=== PATIENT | male | born 1930 | race Caucasian/White ===

== ENCOUNTER → 2016-08-27 | Outpatient (CLI) | payer MEDICARE, OTHER ==
[2016-08-27 08:56] LABS: HEMATOCRIT 45.5 % (37.9-51.0); HEMOGLOBIN 15.1 g/dL (13.5-17.0); HGB HCT DIFFERENCE -0.2; MEAN CORPUSCULAR HEMOGLOBIN 29.6 pg (27.0-33.4); MEAN CORPUSCULAR HGB CONC 33.2 g/dL (32.0-36.0); MEAN CORPUSCULAR VOLUME 89 fl (80-97); RED CELL DISTRIBUTION WIDTH 13.8 % (11.5-14.0); WHITE BLOOD COUNT 7.5 10^3/uL (4.0-10.5)
[2016-08-27 09:14] LABS: ANION GAP 14 (5-19); BLOOD UREA NITROGEN 16 mg/dL (7-20); CALCIUM 9.4 mg/dL (8.4-10.2); CARBON DIOXIDE 26 mmol/L (22-30); CHLORIDE 102 mmol/L (98-107); CREATININE RESULT 1.94 mg/dL (0.52-1.25); GLUCOSE 134 mg/dL (75-110); POTASSIUM 4.6 mmol/L (3.6-5.0); SODIUM 141.5 mmol/L (137-145)
== END ==
LOC: OD 08:31
PROVIDERS: ATTEND Internal Medicine Nephrology
DX: I12.9 Hypertensive chronic kidney disease with stage 1 through stage 4 chronic kidney disease, or unspecified chronic kidney disease (principal); N18.3 Chronic kidney disease, stage 3 (moderate)
CPT/HCPCS: 36415; 80048; 85027

== ENCOUNTER → 2016-12-17 | Outpatient (CLI) | payer MEDICARE, OTHER | LOC: OD 08:19 | PROVIDERS: ATTEND Family Medicine | DX: E11.9 Type 2 diabetes mellitus without complications (principal) | CPT/HCPCS: 36415; 83036 ==

== ENCOUNTER → 2017-02-15 | Outpatient (CLI) | payer MEDICARE, OTHER ==
[2017-02-15 09:23] LABS: HEMATOCRIT 45.7 % (37.9-51.0); HEMOGLOBIN 15.7 g/dL (13.5-17.0); HGB HCT DIFFERENCE 1.4; MEAN CORPUSCULAR HEMOGLOBIN 30.6 pg (27.0-33.4); MEAN CORPUSCULAR HGB CONC 34.4 g/dL (32.0-36.0); MEAN CORPUSCULAR VOLUME 89 fl (80-97); RED BLOOD COUNT 5.14 10^6/uL (4.35-5.55); RED CELL DISTRIBUTION WIDTH 13.7 % (11.5-14.0); WHITE BLOOD COUNT 7.6 10^3/uL (4.0-10.5)
[2017-02-15 09:41] LABS: ANION GAP 11 (5-19); BLOOD UREA NITROGEN 19 mg/dL (7-20); CALCIUM 9.1 mg/dL (8.4-10.2); CARBON DIOXIDE 25 mmol/L (22-30); CHLORIDE 105 mmol/L (98-107); CREATININE RESULT 2.14 mg/dL (0.52-1.25); GLUCOSE 108 mg/dL (75-110); POTASSIUM 4.4 mmol/L (3.6-5.0); SODIUM 140.9 mmol/L (137-145)
== END ==
LOC: OD 08:31
PROVIDERS: ATTEND Internal Medicine Nephrology
DX: N18.3 Chronic kidney disease, stage 3 (moderate) (principal); R19.7 Diarrhea, unspecified; E87.2 Acidosis
CPT/HCPCS: 36415; 80048; 85027

== ENCOUNTER → 2017-04-20 | Outpatient (CLI) | payer MEDICARE, OTHER ==
[2017-04-20 17:40] LABS: ANION GAP 12 (5-19); BLOOD UREA NITROGEN 24 mg/dL (7-20); CALCIUM 9.6 mg/dL (8.4-10.2); CARBON DIOXIDE 27 mmol/L (22-30); CHLORIDE 102 mmol/L (98-107); CREATININE RESULT 2.29 mg/dL (0.52-1.25); GLUCOSE 100 mg/dL (75-110); POTASSIUM 4.5 mmol/L (3.6-5.0); SODIUM 140.6 mmol/L (137-145)
== END ==
LOC: OD 16:06
PROVIDERS: ATTEND Internal Medicine Nephrology
DX: I12.9 Hypertensive chronic kidney disease with stage 1 through stage 4 chronic kidney disease, or unspecified chronic kidney disease (principal); N18.3 Chronic kidney disease, stage 3 (moderate)
CPT/HCPCS: 36415; 80048

== ENCOUNTER → 2017-06-18 | Outpatient (CLI) | payer MEDICARE, OTHER ==
[2017-06-18 10:20] LABS: ANION GAP 12 (5-19); BLOOD UREA NITROGEN 21 mg/dL (7-20); CALCIUM 9.4 mg/dL (8.4-10.2); CARBON DIOXIDE 29 mmol/L (22-30); CHLORIDE 102 mmol/L (98-107); CHOLESTEROL 134.32 mg/dL (0-200); CREATININE RESULT 2.19 mg/dL (0.52-1.25); Direct HDL 54 mg/dL (>40); GLUCOSE 96 mg/dL (75-110); POTASSIUM 4.3 mmol/L (3.6-5.0); SODIUM 143.1 mmol/L (137-145); TRIGLYCERIDES 145 mg/dL (<150)
[2017-06-18 10:31] LABS: DIRECT LDL 55 mg/dL (<100)
== END ==
LOC: OD 08:52
PROVIDERS: ATTEND Family Medicine
DX: E11.9 Type 2 diabetes mellitus without complications (principal); E78.2 Mixed hyperlipidemia; I10 Essential (primary) hypertension; Z79.899 Other long term (current) drug therapy
CPT/HCPCS: 36415; 80048; 80061; 83036; 84443

== ENCOUNTER → 2017-07-27 | Outpatient (CLI) | payer MEDICARE, OTHER ==
[2017-07-27 10:19] LABS: APPEARANCE,URINE SLIGHTLY-CLOUDY; BILIRUBIN,URINE NEGATIVE (NEGATIVE); COLOR,URINE YELLOW; GLUCOSE, URINE NEGATIVE (NEGATIVE); KETONES,URINE NEGATIVE (NEGATIVE); LEUKOCYTE ESTERASE,URINE NEGATIVE (NEGATIVE); NITRITE,URINE NEGATIVE (NEGATIVE); PROTEIN,URINE 30 mg/dL (NEGATIVE); URINE SPECIFIC GRAVITY 1.014; UROBILINOGEN,URINE NEGATIVE mg/dL (<2.0)
[2017-07-27 10:24] LABS: HEMATOCRIT 44.6 % (37.9-51.0); HEMOGLOBIN 15.1 g/dL (13.5-17.0); MEAN CORPUSCULAR HGB CONC 33.9 g/dL (32.0-36.0); MEAN CORPUSCULAR VOLUME 88 fl (80-97); PLATELET COUNT 136 10^3/uL (150-450); RED BLOOD COUNT 5.05 10^6/uL (4.35-5.55); WHITE BLOOD COUNT 7.5 10^3/uL (4.0-10.5)
[2017-07-27 11:00] LABS: ANION GAP 12 (5-19); BLOOD UREA NITROGEN 18 mg/dL (7-20); CALCIUM 9.4 mg/dL (8.4-10.2); CARBON DIOXIDE 30 mmol/L (22-30); CHLORIDE 101 mmol/L (98-107); GLUCOSE 92 mg/dL (75-110); POTASSIUM 4.1 mmol/L (3.6-5.0); SODIUM 142.6 mmol/L (137-145)
== END ==
LOC: OD 09:35
PROVIDERS: ATTEND Physician Assistant Medical
DX: N18.3 Chronic kidney disease, stage 3 (moderate) (principal); E87.2 Acidosis; I95.9 Hypotension, unspecified
CPT/HCPCS: 36415; 80048; 81001; 83970; 84100; 85027

== ENCOUNTER → 2017-12-09 | Outpatient (CLI) | payer MEDICARE, OTHER | LOC: OD 08:59 | PROVIDERS: ATTEND Family Medicine | DX: E11.9 Type 2 diabetes mellitus without complications (principal) | CPT/HCPCS: 36415; 83036 ==

== ENCOUNTER → 2017-12-15 | Outpatient (CLI) | payer MEDICARE, OTHER ==
[2017-12-15 10:25] LABS: APPEARANCE,URINE SLIGHTLY-CLOUDY; BILIRUBIN,URINE NEGATIVE (NEGATIVE); COLOR,URINE YELLOW; GLUCOSE, URINE NEGATIVE (NEGATIVE); KETONES,URINE NEGATIVE (NEGATIVE); LEUKOCYTE ESTERASE,URINE NEGATIVE (NEGATIVE); NITRITE,URINE NEGATIVE (NEGATIVE); PROTEIN,URINE 30 mg/dL (NEGATIVE); UROBILINOGEN,URINE NEGATIVE mg/dL (<2.0)
[2017-12-15 11:01] LABS: ANION GAP 16 (5-19); BLOOD UREA NITROGEN 18 mg/dL (7-20); CALCIUM 9.5 mg/dL (8.4-10.2); CARBON DIOXIDE 26 mmol/L (22-30); CHLORIDE 102 mmol/L (98-107); GLUCOSE 96 mg/dL (75-110); POTASSIUM 4.3 mmol/L (3.6-5.0); SODIUM 143.6 mmol/L (137-145)
== END ==
LOC: OD 09:31
PROVIDERS: ATTEND Physician Assistant Medical
DX: I12.9 Hypertensive chronic kidney disease with stage 1 through stage 4 chronic kidney disease, or unspecified chronic kidney disease (principal); N18.3 Chronic kidney disease, stage 3 (moderate)
CPT/HCPCS: 36415; 80048; 81001

== ENCOUNTER → 2018-05-25 | Outpatient (CLI) | payer MEDICARE, OTHER ==
[2018-05-25 10:39] LABS: ANION GAP 14 (5-19); BLOOD UREA NITROGEN 16 mg/dL (7-20); CALCIUM 9.7 mg/dL (8.4-10.2); CARBON DIOXIDE 28 mmol/L (22-30); CHLORIDE 103 mmol/L (98-107); CHOLESTEROL 161.96 mg/dL (0-200); GLUCOSE 104 mg/dL (75-110); POTASSIUM 3.9 mmol/L (3.6-5.0); SODIUM 145.2 mmol/L (137-145); TRIGLYCERIDES 133 mg/dL (<150)
[2018-05-25 10:50] LABS: DIRECT LDL 92 mg/dL (<100)
== END ==
LOC: OD 09:21
PROVIDERS: ATTEND Family Medicine
DX: E11.9 Type 2 diabetes mellitus without complications (principal); E78.2 Mixed hyperlipidemia; N40.0 Benign prostatic hyperplasia without lower urinary tract symptoms; Z79.899 Other long term (current) drug therapy
CPT/HCPCS: 36415; 80048; 80061; 83036; 84153; 84443

== ENCOUNTER → 2018-06-13 | Outpatient (CLI) | payer MEDICARE, OTHER ==
[2018-06-13 09:25] LABS: HEMATOCRIT 45.7 % (37.9-51.0); HEMOGLOBIN 15.6 g/dL (13.5-17.0); MEAN CORPUSCULAR HEMOGLOBIN 30.2 pg (27.0-33.4); MEAN CORPUSCULAR VOLUME 89 fl (80-97); PLATELET COUNT 146 10^3/uL (150-450); RED BLOOD COUNT 5.16 10^6/uL (4.35-5.55); RED CELL DISTRIBUTION WIDTH 13.7 % (11.5-14.0); WHITE BLOOD COUNT 7.9 10^3/uL (4.0-10.5)
[2018-06-13 09:33] LABS: APPEARANCE,URINE SLIGHTLY-CLOUDY; BILIRUBIN,URINE NEGATIVE (NEGATIVE); COLOR,URINE YELLOW; GLUCOSE, URINE NEGATIVE (NEGATIVE); KETONES,URINE NEGATIVE (NEGATIVE); LEUKOCYTE ESTERASE,URINE NEGATIVE (NEGATIVE); NITRITE,URINE NEGATIVE (NEGATIVE); PROTEIN,URINE 30 mg/dL (NEGATIVE); URINE SPECIFIC GRAVITY 1.016; UROBILINOGEN,URINE NEGATIVE mg/dL (<2.0)
[2018-06-13 09:43] LABS: BLOOD UREA NITROGEN 19 mg/dL (7-20); CALCIUM 9.8 mg/dL (8.4-10.2); GLUCOSE 102 mg/dL (75-110)
[2018-06-13 09:44] LABS: ANION GAP 12 (5-19); CARBON DIOXIDE 31 mmol/L (22-30); CHLORIDE 103 mmol/L (98-107); PHOSPHORUS 3.3 mg/dL (2.5-4.5); POTASSIUM 4.8 mmol/L (3.6-5.0); SODIUM 145.7 mmol/L (137-145)
== END ==
LOC: OD 08:28
PROVIDERS: ATTEND Physician Assistant Medical
DX: N18.3 Chronic kidney disease, stage 3 (moderate) (principal); E87.2 Acidosis
CPT/HCPCS: 36415; 80048; 81001; 83970; 84100; 85027

== ENCOUNTER → 2018-11-16 | Outpatient (CLI) | payer MEDICARE, OTHER | LOC: OD 09:59 | PROVIDERS: ATTEND Family Medicine | DX: E11.9 Type 2 diabetes mellitus without complications (principal); Z79.899 Other long term (current) drug therapy | CPT/HCPCS: 36415; 83036 ==

== ENCOUNTER → 2019-01-10 | Outpatient (CLI) | payer MEDICARE, OTHER ==
[2019-01-10 09:39] LABS: HEMATOCRIT 45.2 % (37.9-51.0); HEMOGLOBIN 15.2 g/dL (13.5-17.0); MEAN CORPUSCULAR HEMOGLOBIN 29.3 pg (27.0-33.4); MEAN CORPUSCULAR HGB CONC 33.5 g/dL (32.0-36.0); MEAN CORPUSCULAR VOLUME 87 fl (80-97); PLATELET COUNT 202 10^3/uL (150-450); RED BLOOD COUNT 5.17 10^6/uL (4.35-5.55); RED CELL DISTRIBUTION WIDTH 13.8 % (11.5-14.0); WHITE BLOOD COUNT 10.6 10^3/uL (4.0-10.5)
[2019-01-10 09:42] LABS: APPEARANCE,URINE CLOUDY; BILIRUBIN,URINE NEGATIVE (NEGATIVE); COLOR,URINE YELLOW; GLUCOSE, URINE NEGATIVE (NEGATIVE); KETONES,URINE NEGATIVE (NEGATIVE); LEUKOCYTE ESTERASE,URINE LARGE (NEGATIVE); NITRITE,URINE NEGATIVE (NEGATIVE); PROTEIN,URINE 30 mg/dL (NEGATIVE); URINE SPECIFIC GRAVITY 1.017; UROBILINOGEN,URINE NEGATIVE mg/dL (<2.0)
[2019-01-10 10:09] LABS: ANION GAP 7 (5-19); BLOOD UREA NITROGEN 14 mg/dL (7-20); CALCIUM 9.3 mg/dL (8.4-10.2); CARBON DIOXIDE 28 mmol/L (22-30); CHLORIDE 105 mmol/L (98-107); GLUCOSE 93 mg/dL (75-110); POTASSIUM 4.4 mmol/L (3.6-5.0); SODIUM 140.3 mmol/L (137-145)
== END ==
LOC: OD 09:04
PROVIDERS: ATTEND Physician Assistant Medical
DX: I12.9 Hypertensive chronic kidney disease with stage 1 through stage 4 chronic kidney disease, or unspecified chronic kidney disease (principal); N18.3 Chronic kidney disease, stage 3 (moderate)
CPT/HCPCS: 36415; 80048; 81001; 83970; 85027

== ENCOUNTER → 2019-05-16 | Outpatient (CLI) | payer MEDICARE, OTHER ==
[2019-05-16 11:14] LABS: ANION GAP 9 (5-19); BLOOD UREA NITROGEN 18 mg/dL (7-20); CALCIUM 9.4 mg/dL (8.4-10.2); CARBON DIOXIDE 30 mmol/L (22-30); CHLORIDE 102 mmol/L (98-107); CHOLESTEROL 166.74 mg/dL (0-200); GLUCOSE 105 mg/dL (75-110); POTASSIUM 4.6 mmol/L (3.6-5.0); TRIGLYCERIDES 146 mg/dL (<150)
[2019-05-16 11:25] LABS: DIRECT LDL 91 mg/dL (<100)
== END ==
LOC: OD 09:37
PROVIDERS: ATTEND Family Medicine
DX: E11.9 Type 2 diabetes mellitus without complications (principal); E78.2 Mixed hyperlipidemia; I10 Essential (primary) hypertension; N40.0 Benign prostatic hyperplasia without lower urinary tract symptoms; Z79.899 Other long term (current) drug therapy
CPT/HCPCS: 36415; 80048; 80061; 83036; 84153; 84443

== ENCOUNTER → 2019-06-27 | Outpatient (CLI) | payer MEDICARE, OTHER ==
[2019-06-27 10:10] LABS: HEMATOCRIT 45.7 % (37.9-51.0); HEMOGLOBIN 15.5 g/dL (13.5-17.0); MEAN CORPUSCULAR HEMOGLOBIN 29.8 pg (27.0-33.4); MEAN CORPUSCULAR HGB CONC 33.9 g/dL (32.0-36.0); MEAN CORPUSCULAR VOLUME 88 fl (80-97); PLATELET COUNT 172 10^3/uL (150-450); WHITE BLOOD COUNT 8.8 10^3/uL (4.0-10.5)
[2019-06-27 10:27] LABS: ANION GAP 9 (5-19); BLOOD UREA NITROGEN 17 mg/dL (7-20); CALCIUM 9.3 mg/dL (8.4-10.2); CARBON DIOXIDE 29 mmol/L (22-30); CHLORIDE 104 mmol/L (98-107); GLUCOSE 101 mg/dL (75-110); PHOSPHORUS 3.8 mg/dL (2.5-4.5); POTASSIUM 4.3 mmol/L (3.6-5.0)
[2019-06-27 10:59] LABS: APPEARANCE,URINE SLIGHTLY-CLOUDY; BILIRUBIN,URINE NEGATIVE (NEGATIVE); COLOR,URINE YELLOW; GLUCOSE, URINE NEGATIVE (NEGATIVE); KETONES,URINE NEGATIVE (NEGATIVE); LEUKOCYTE ESTERASE,URINE LARGE (NEGATIVE); NITRITE,URINE POSITIVE (NEGATIVE); PROTEIN,URINE 30 mg/dL (NEGATIVE); URINE SPECIFIC GRAVITY 1.016; UROBILINOGEN,URINE NEGATIVE mg/dL (<2.0)
== END ==
LOC: OD 09:45
PROVIDERS: ATTEND Physician Assistant Medical
DX: I12.9 Hypertensive chronic kidney disease with stage 1 through stage 4 chronic kidney disease, or unspecified chronic kidney disease (principal); N18.3 Chronic kidney disease, stage 3 (moderate); E87.2 Acidosis; N39.0 Urinary tract infection, site not specified
CPT/HCPCS: 36415; 80048; 81001; 83970; 84100; 85027; 87086; 87088; 87186

== ENCOUNTER 2020-03-19 11:29 | Observation (INO) | payer MEDICARE, OTHER ==
--- NOTE | 2020-03-19 12:08 | ER Document Report ---
ED General - General Chief Complaint: Urinary Problem Stated Complaint: BACK PAIN Time Seen by Provider: 03/19/20 12:07 TRAVEL OUTSIDE OF THE [place] IN LAST 30 DAYS: No - HPI Patient complains to provider of: back pain Notes: 89-year-old elderly male presents with 8/10 sharp lower back pain. No radiation nothing makes it better or worse. Denies any urinary incontinence bowel or bladder incontinence denies saddle anesthesia fever chills. Patient has no history of IV drug use or blood thinner use Patient had a mild fall at home 9 days ago initially felt fine. having increas ing pain since Wednesday. 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 - Related Data Allergies/Adverse Reactions: No Known Allergies Allergy (Verified 11/04/14 11:58) Past Medical History - Social History Smoking Status: Never Smoker Frequency of alcohol use: None Drug Abuse: None Family History: Reviewed & Not Pertinent - Past Medical History Cardiac Medical History: Reports: Hx Heart Attack, Hx Hypercholesterolemia, Hx Hypertension Renal/ Medical History: Reports: Hx Benign Prostatic Hyperplasia, Hx Renal Insufficiency Malignancy Medical History: Reports Hx Colorectal Cancer Musculoskeletal Medical History: Reports Hx Gout Past Surgical History: Reports: Hx Bowel Surgery - iliostomy, Hx Cardiac Surgery - CABG x5, Hx Neurologic Surgery - tumor removed - Immunizations Hx Diphtheria, Pertussis, Tetanus Vaccination: - unknown Review of Systems - Review of Systems Notes: REVIEW OF SYSTEMS: CONSTITUTIONAL: -fevers, -chills EENT: -eye pain, -difficulty swallowing, -nasal congestion CARDIOVASCULAR: -chest pain, -syncope. RESPIRATORY: -cough, -SOB GASTROINTESTINAL: -abdominal pain, -nausea, -vomiting, -diarrhea GENITOURINARY: -dysuria, -hematuria MUSCULOSKELETAL: Positive for back pain SKIN: -rash or skin lesions. HEMATOLOGIC: -easy bruising or bleeding. LYMPHATIC: -swollen, enlarged glands. NEUROLOGICAL: -altered mental status or loss of consciousness, -headache, - neurologic symptoms PSYCHIATRIC: -anxiety, -depression. ALL OTHER SYSTEMS REVIEWED AND NEGATIVE. Physical Exam - Vital signs Vitals: Temp 97.7 F 03/19/20 11:35 Interpretation: Normal - Notes Notes: PHYSICAL EXAMINATION: GENERAL: Well-appearing, well-nourished and in no acute distress. HEAD: Atraumatic, normocephalic. EYES: Pupils equal round, sclera anicteric, conjunctiva are normal. ENT: Surgical mask in place. NECK: Normal range of motion, BACK: Tenderness T10-L2 LUNGS: No respiratory Distress, normal chest rise EXTREMITIES: Normal range of motion, No cyanosis. NEUROLOGICAL: Cranial nerves grossly intact. Normal speech, PSYCH: Normal mood, normal affect. SKIN: Warm, Dry, - General General appearance: Appears well, Alert - HEENT Head: Normocephalic, Atraumatic Eyes: Normal Pupils: PERRL - Respiratory Respiratory status: No respiratory distress Chest status: Nontender Breath sounds: Normal Chest palpation: Normal - Cardiovascular Rhythm: Regular Heart sounds: Normal auscultation Murmur: No - Abdominal Inspection: Normal Distension: No distension Bowel sounds: Normal Tenderness: Nontender Organomegaly: No organomegaly - Back Back: Normal, Nontender - Extremities General upper extremity: Normal inspection, Nontender, Normal color, Normal ROM, Normal temperature General lower extremity: Normal inspection, Nontender, Normal color, Normal ROM, Normal temperature, Normal weight bearing. No: Ina's sign - Neurological Neuro grossly intact: Yes Cognition: Normal Orientation: AAOx4 [place] Coma Scale Eye Opening: Spontaneous [place] Coma Scale Verbal: Oriented [place] Coma Scale Motor: Obeys Commands Clayton Coma Scale Total: 15 Speech: Normal Motor strength normal: LUE, RUE, LLE, RLE Sensory: Normal - Psychological Associated symptoms: Normal affect, Normal mood - Skin Skin Temperature: Warm Skin Moisture: Dry Skin Color: Normal Course - Re-evaluation Re-evalutation: 03/29/20 11:25 Patient prrsents with severe back pain and weakness. Unable to ambulate Will require admission at this time. labs reviewed below see H&P - Vital Signs Vital signs: Temp Pulse Resp BP Pulse Ox 98.1 F 78 18 131/60 H 96 03/21/20 18:19 03/21/20 18:19 03/21/20 18:19 03/21/20 18:19 03/21/20 18:19 - Laboratory Result Diagrams: 03/21/20 05:53 03/20/20 05:40 Laboratory results interpreted by me: 03/19/20 12:48 Urine Protein 100 H Urine Ketones TRACE H Urine Ascorbic Acid 20 H Discharge - Discharge Clinical Impression: Back pain Qualifiers: Back pain location: low back pain Chronicity: chronic Back pain laterality: midline Sciatica presence: without sciatica Qualified Code(s): M54.5 - Low back pain Condition: Good Disposition: ADMITTED INPATIENT Admitting Provider: Kathryn Unit Admitted: Medical Floor
[2020-03-19] MEDS ORDERED: ACETAMINOPHEN 325 MG TABLET PO ONE (13:06)
[2020-03-19] MEDS ORDERED: KETOROLAC TROMETHAMINE INJ/PF 30 MG/1 ML SDV IV ONE (13:06)
--- NOTE | 2020-03-19 13:46 | RADIOLOGY REPORT (SQ) ---
EXAM DESCRIPTION: CT THORACIC SPINE WITHOUT IMAGES COMPLETED DATE/TIME: 03/19/2020 1:05 pm REASON FOR STUDY: pain COMPARISON: None. TECHNIQUE: Axial images acquired through the thoracic spine without intravenous contrast. Images re viewed with lung, soft tissue and bone windows. Reconstructed coronal and sagittal MPR images review ed. Images stored on PACS. All CT scanners at this facility use dose modulation, iterative reconstruction, and/or weight based d osing when appropriate to reduce radiation dose to as low as reasonably achievable (ALARA). [facility]: Dose Right [facility]: CareDose [facility]: Dose Right [facility]: Teradose 4D [facility]: [employer] RADIATION DOSE: CT Rad equipment meets quality standard of care and radiation dose reduction techniq ues were employed. CTDIvol: 17.1 mGy. DLP: 582 mGy-cm. mGy. LIMITATIONS: None. FINDINGS: VISUALIZED LUNGS: No acute opacities. No pneumothorax. SOFT TISSUES: No soft tissue swelling. No masses. VERTEBRAL BODIES: No fractures. No dislocation. No acute findings. DISCS: Mild degenerative disc disease at multiple levels. ALIGNMENT: Normal. TRANSVERSE PROCESSES, POSTERIOR ELEMENTS: Hypertrophic osteophytes at multiple levels. HARDWARE: None in the spine. VISUALIZED RIBS: No fractures. OTHER: No other significant finding. IMPRESSION: CHRONIC DEGENERATIVE CHANGES WITHOUT ACUTE FRACTURE. TECHNICAL DOCUMENTATION: JOB ID: [id number] Quality ID # [id number]: Final reports with documentation of one or more dose reduction techniques (e.g., Au tomated exposure control, adjustment of the mA and/or kV according to patient size, use of iterative reconstruction technique) 2010 [employer]- All Rights Reserved Reading location - IP/workstation name: [email or web address]
--- NOTE | 2020-03-19 13:48 | RADIOLOGY REPORT (SQ) ---
EXAM DESCRIPTION: CT LUMBAR SPINE WITHOUT IMAGES COMPLETED DATE/TIME: 03/19/2020 1:05 pm REASON FOR STUDY: pain COMPARISON: None. TECHNIQUE: Axial images acquired through the lumbar spine without intravenous contrast. Images revi ewed with lung, soft tissue and bone windows. Reconstructed coronal and sagittal MPR images reviewed . All images stored on PACS. All CT scanners at this facility use dose modulation, iterative reconstruction, and/or weight based d osing when appropriate to reduce radiation dose to as low as reasonably achievable (ALARA). [facility]: Dose Right [facility]: CareDose [facility]: Dose Right [facility]: Teradose 4D [facility]: [employer] RADIATION DOSE: mGy. LIMITATIONS: None. FINDINGS: SEGMENTATION: Normal. No transitional anatomy. ALIGNMENT: Normal. VERTEBRAL BODIES: No fractures. No dislocation. No acute findings. DISCS: Multilevel disc space narrowing with osteophytes, most pronounced at L3-L4. PEDICLES, TRANSVERSE PROCESSES: No fractures. No dislocation. No acute findings. FACETS, POSTERIOR ELEMENTS: No fractures. Multilevel facet arthropathy. No dislocation. No spinal stenosis. HARDWARE: None in the spine. VISUALIZED RIBS: No fractures. SOFT TISSUES: No significant or acute finding in adjacent soft tissues. OTHER: No other significant finding. IMPRESSION: CHRONIC DEGENERATIVE CHANGES. NO ACUTE FINDINGS. TECHNICAL DOCUMENTATION: JOB ID: [id number] Quality ID # [id number]: Final reports with documentation of one or more dose reduction techniques (e.g., Au tomated exposure control, adjustment of the mA and/or kV according to patient size, use of iterative reconstruction technique) 2010 [employer]- All Rights Reserved Reading location - IP/workstation name: [email or web address]
[2020-03-19] MEDS ORDERED: KETOROLAC TROMETHAMINE INJ/PF 30 MG/1 ML SDV IM ONE (14:19)
[2020-03-19] MEDS ORDERED: FENTANYL CITRATE INJ/PF 100 MCG/2 ML AMPUL IM ONE (14:24)
[2020-03-19 14:35] LABS: APPEARANCE,URINE SLIGHTLY-CLOUDY; BILIRUBIN,URINE NEGATIVE (NEGATIVE); COLOR,URINE YELLOW; GLUCOSE, URINE NEGATIVE (NEGATIVE); KETONES,URINE TRACE mg/dL (NEGATIVE); LEUKOCYTE ESTERASE,URINE NEGATIVE (NEGATIVE); NITRITE,URINE NEGATIVE (NEGATIVE); PROTEIN,URINE 100 mg/dL (NEGATIVE); UROBILINOGEN,URINE NEGATIVE mg/dL (<2.0)
[2020-03-19] MEDS ORDERED: MORPHINE SULFATE 10 MG/ML INJ IV ONE (14:52)
[2020-03-19] MEDS ORDERED: NORMAL SALINE 1000 ML 1,000 ML IV ONE (14:53)
[2020-03-19] MEDS ORDERED: HYDROMORPHONE HCL INJ/PF 2 MG/ML AMPULE IV PRN (16:04)
[2020-03-19 16:27] LABS: ABSOLUTE EOSINOPHILS # (AUTO) 0.1 10^3/uL (0.0-0.6); ABSOLUTE MONOCYTES (AUTO) 0.7 10^3/uL (0.1-1.4); ABSOLUTE NEUT (AUTO) 7.8 10^3/uL (1.7-8.2); BASOPHILS % (AUTO) 0.4 % (0-2); EOSINOPHILS % (AUTO) 0.5 % (0-6); HEMATOCRIT 49.2 % (37.9-51.0); HEMOGLOBIN 16.7 g/dL (13.5-17.0); LYMPHOCYTES % (AUTO) 18.6 % (13-45); MEAN CORPUSCULAR VOLUME 88 fl (80-97); MONOCYTES % (AUTO) 6.7 % (3-13); PLATELET COUNT 184 10^3/uL (150-450); RED BLOOD COUNT 5.57 10^6/uL (4.35-5.55); RED CELL DISTRIBUTION WIDTH 14.1 % (11.5-14.0); SEGMENTED NEUTROPHILS % (AUTO) 73.8 % (42-78); TOTAL CELLS COUNTED % (AUTO) 100 %; WHITE BLOOD COUNT 10.6 10^3/uL (4.0-10.5)
[2020-03-19 16:45] LABS: ANION GAP 11 (5-19); BLOOD UREA NITROGEN 18 mg/dL (7-20); CALCIUM 9.6 mg/dL (8.4-10.2); CARBON DIOXIDE 27 mmol/L (22-30); CHLORIDE 104 mmol/L (98-107); GLUCOSE 90 mg/dL (75-110); POTASSIUM 4.3 mmol/L (3.6-5.0)
[2020-03-19] MEDS ORDERED: LIDOCAINE 5% (700 MG) TRANSDERMAL ADH..PATCH TP ONE (16:45)
--- NOTE | 2020-03-19 16:58 | PDOC H&P ---
History of Present Illness Admission Date/PCP: 03/19/20 15:41 PEDRO PABLO SHETH PA-C Patient complains of: Back Pain History of Present Illness: JEIMY EDWARDS is a 89 year old male, past medical history of prior CABG ,hyperlipidemia, type 2 diabetes, colon cancer status post colectomy 1980s with ileostomy, questionable history of brain tumor, BPH who came in the emergency room today due to back pain of 2 weeks duration about 10 days prior to admission the patient apparently fell and hit his back he denies any loss of consciousness and he was initially okay However 5 days prior to consult around Wednesday he started to experience severe back pain, 10 out of 10, partially relieved by Tylenol, nonradiating, lumbar area. Denies any bowel or bladder incontinence no leg weakness or numbness, no fever, no saddle anesthesia. He is concerned because he lives with his who recently suffered a stroke and stated that he would not be able to take care of her. In the emergency room vital signs were 157/80 heart rate of 92 respiratory rate of 16. Neurologic exam did not show any focal neurologic deficit. CBC was unremarkable, BMP showed a creatinine of 1.91 which is around his baseline. He was given IV fentanyl IV morphine and Tylenol. CT scan of thoracic and lumbar spine showed chronic degenerative changes, no acute findings. He was subsequently admitted for further evaluation and management Past Medical History Cardiac Medical History: Reports: Myocardial Infarction, Hyperlipidema, Hypertension Pulmonary Medical History: Reports: None EENT Medical History: Reports: None Neurological Medical History: Reports: Other - questionable history of brain tumor Endocrine Medical History: Reports: Diabetes Mellitus Type 2 - Not on medication Denies: Hyperthyroidism, Obesity Renal/ Medical History: Reports: Chronic Kidney Disease Malignancy Medical History: Reports: Colorectal Cancer, Other - status post colectomy with ileostomy creation GI Medical History: Reports: None, Other - History of BPH Musculoskeltal Medical History: Reports: Gout Psychiatric Medical History: Reports: None Hematology: Reports: None Infectious Medical History: Reports: None Past Surgical History Past Surgical History: Reports: Coronary Artery Bypass Graft, Ileostomy, Other - Brain surgery? Social History Information Source: Patient Lives with: Spouse/Significant other Smoking Status: Never Smoker Electronic Cigarette use?: No Frequency of Alcohol Use: None Hx Recreational Drug Use: No Hx Prescription Drug Abuse: No Family History Family History: Reviewed & Not Pertinent Parental Family History Reviewed: Yes Children Family History Reviewed: Yes Sibling(s) Family History Reviewed.: Yes Medication/Allergy Home Medications: Aspirin [Aspirin EC] 81 mg PO DAILY 11/04/14 Cetirizine HCl [Zyrtec] 10 mg PO DAILY 11/04/14 Esomeprazole Magnesium [Nexium] 30 mg PO DAILY 11/04/14 Simvastatin 40 mg PO QHS 11/04/14 Tamsulosin HCl [Flomax] 0.4 mg PO DAILY 11/04/14 Allopurinol [Zyloprim 300 mg Tablet] 11/18/14 Dronabinol [Marinol 2.5 mg Capsule] 11/18/14 Meclizine HCl 11/18/14 No.137/Iron/Folic Acd [ Vitamin Tablet] 11/18/14 Cholestyramine/Aspartame [Questran Light 4 gm Packet] 4 gm PO MEALS #60 packet 11/22/14 Loperamide HCl [Imodium 2 mg Capsule] 2 mg PO Q6HP PRN #30 capsule 11/22/14 Midodrine HCl [Proamatine 5 mg Tablet] 5 mg PO DAILY #30 tablet 11/22/14 Allergies/Adverse Reactions: No Known Allergies Allergy (Verified 11/04/14 11:58) Review of Systems Constitutional: ABSENT: anorexia, chills, fever(s), night sweats Eyes: PRESENT: visual disturbances Ears: ABSENT: hearing changes Cardiovascular: ABSENT: edema, orthropnea, palpitations Respiratory: ABSENT: cough, dyspnea Gastrointestinal: ABSENT: abdominal pain, diarrhea, hematemesis Genitourinary: ABSENT: dysuria Integumentary: ABSENT: lesions Neurological: PRESENT: other - Positive back pain. ABSENT: abnormal gait, confusion, focal weakness, lack of coordination Hematologic/Lymphatic: PRESENT: easy bruising Physical Exam Vital Signs: Temp Pulse Resp BP Pulse Ox 97.7 F 92 16 157/80 H 93 03/19/20 11:35 03/19/20 11:38 03/19/20 11:38 03/19/20 11:38 03/19/20 11:38 Intake & Output 03/18/20 03/19/20 03/20/20 06:59 06:59 06:59 Weight 58.513 kg General appearance: PRESENT: no acute distress, cooperative, other - In mild pain Head exam: PRESENT: atraumatic, normocephalic Eye exam: PRESENT: EOMI, PERRLA Mouth exam: PRESENT: moist Neck exam: PRESENT: full ROM. ABSENT: JVD, lymphadenopathy Respiratory exam: PRESENT: clear to auscultation sharmin, unlabored. ABSENT: crackles, wheezes Cardiovascular exam: PRESENT: RRR, +S1, +S2. ABSENT: diastolic murmur, systolic murmur Pulses: PRESENT: normal radial pulses, +2 pedal pulses bilateral Vascular exam: PRESENT: normal capillary refill GI/Abdominal exam: PRESENT: soft. ABSENT: distended, guarding, tenderness Extremities exam: ABSENT: calf tenderness Musculoskeletal exam: PRESENT: tenderness - No midline tenderness, step up, but has tenderness on lumbar area, other - Positive straight leg test Neurological exam: PRESENT: alert, awake, oriented to person, oriented to place, oriented to time, oriented to situation, other - Strength 5/5 all extremities, no saddle anesthesia Psychiatric exam: PRESENT: normal mood Results Laboratory Results: 03/19/20 15:57 03/19/20 15:57 03/19/20 03/19/20 03/19/20 12:48 15:57 15:57 WBC 10.6 H RBC 5.57 H Hgb 16.7 Hct 49.2 MCV 88 MCH 30.0 MCHC 34.0 RDW 14.1 H Plt Count 184 Seg Neutrophils % 73.8 Sodium 141.6 Potassium 4.3 Chloride 104 Carbon Dioxide 27 Anion Gap 11 BUN 18 Creatinine 1.91 H Est GFR ( Amer) 40 L Glucose 90 Calcium 9.6 Urine Color YELLOW Urine Appearance SLIGHTLY-CLOUDY Urine pH 5.0 Ur Specific [place] 1.020 Urine Protein 100 H Urine Glucose (UA) NEGATIVE Urine Ketones TRACE H Urine Blood NEGATIVE Urine Nitrite NEGATIVE Ur Leukocyte Esterase NEGATIVE Urine WBC (Auto) 1 Urine RBC (Auto) 1 Impressions: Lumbar Spine CT 03/19/20 12:20 IMPRESSION: CHRONIC DEGENERATIVE CHANGES. NO ACUTE FINDINGS. Thoracic Spine CT 03/19/20 12:20 IMPRESSION: CHRONIC DEGENERATIVE CHANGES WITHOUT ACUTE FRACTURE. Assessment and Plan - Diagnosis (1) Acute back pain less than 4 weeks duration Is this a current diagnosis for this admission?: Yes Plan: -History of fall 10 days prior, history of colorectal cancer which are red flags for acute back pain -No bowel or bladder incontinence no saddle anesthesia no fever no weight loss -Positive straight leg test -CT of thoracic lumbar spine chronic degenerative changes no acute fracture -Differential is MSK, versus vertebral fracture, versus pathologic fracture -We will order MRI thoracolumbar -IV Dilaudid and Tylenol for pain because he has CKD -Lidoderm patch and heating packs for local pain control -PT OT to assess patient (2) Chronic kidney disease, stage III (moderate) Is this a current diagnosis for this admission?: Yes Plan: -History of chronic kidney disease stage III -Baseline creatinine around 2, creatinine 1.9 which is around his baseline -We will avoid NSAIDs for back pain because of CKD -continue to monitor creatinine daily - (3) Coronary artery disease Qualifiers: Coronary Disease-Associated Artery/Lesion type: bypass graft [place] vs. transplanted heart: [place] heart Associated angina: without angina Qualified Code(s): I25.810 - Atherosclerosis of coronary artery bypass graft(s) without angina pectoris Is this a current diagnosis for this admission?: Yes Plan: -Review of prior CABG -No chest pain -Continue aspirin (4) BPH (benign prostatic hyperplasia) Qualifiers: Lower urinary tract symptom presence: symptoms absent Qualified Code(s): N40.0 - Benign prostatic hyperplasia without lower urinary tract symptoms Is this a current diagnosis for this admission?: Yes Plan: -Denies dysuria frequency hesitancy -Tamsulosin resumed (5) Status post ileostomy Is this a current diagnosis for this admission?: Yes - Plan Summary Summary: Patient is an 89-year-old male history of colorectal cancer prior CABG admitted due to acute onset of back pain. Also states that he lives with his who recently suffered a stroke and he will be able to take care of her. Case management consulted. Plan is to admit for IV pain medications, and PT OT - Time Time Spent with patient: 25-34 minutes Medications reviewed and adjusted accordingly: Yes Anticipated Discharge Disposition: To be determined Anticipated Discharge Timeframe: within 48 hours
[2020-03-19] MEDS: ASPIRIN 81 MG TABLET, CHEWABLE PO SCH (19:01)
[2020-03-19] MEDS: DOCUSATE SODIUM 100 MG/10 ML UDC PO SCH (19:01)
--- NOTE | 2020-03-19 22:39 | RADIOLOGY REPORT (SQ) ---
EXAM DESCRIPTION: MR LUMBAR SPINE WITHOUT IV CONTRAST COMPLETED DATE/TME: 03/19/2020 14:53 CLINICAL HISTORY: 89 years, Male, pain COMPARISON: CT 03/19/2020 TECHNIQUE: 160 Images stored on PACS. LIMITATIONS: None. FINDINGS: 5 lumbar type vertebral bodies, for the purposes of this exam. Vertebral body height and alignment is preserved. However, there is abnormal signal associated with the L3 vertebral body and inferior endplate, showing low signal on T1 sequences and predominantly low signal on T2 sequences. However this area shows increased signal on STIR sequences consistent with nonspecific bone marrow edema. There is no significant loss of height. No other areas of abnormal marrow signal. Normal signal in the visualized spinal cord. The conus medullaris terminates appropriately. Limited evaluation of extraspinal anatomic structures shows bilateral renal cortical thinning and atrophy. The visualized abdominal aorta has maximal diameter of 2.4 x 2.4 cm. The T12-L1, L1-L2 levels are unremarkable. At L2-L3 there is mild facet arthropathy and diffuse disc bulging without central canal stenosis or neural foraminal compromise. At L3-4, there is disc space narrowing with endplate degenerative change and osteophytic spurring. Bilateral facet arthropathy. Ligament flavum hypertrophy. Diffuse disc bulging. Some equivocal increased T2 signal within the disc space at L3-4 however the disc space does not appear widened. No greater than mild central canal stenosis and mild neural foraminal narrowing bilaterally at this level. L4-5 there is bilateral facet arthropathy with ligamentum flavum hypertrophy. Minor osteophytic spurring. There is a right lateral disc bulge. No central canal stenosis. Mild right neural foraminal narrowing. At L5-S1 there is mild facet arthropathy bilaterally. No disc bulge or protrusion. No central canal stenosis or neural foraminal compromise. IMPRESSION: Nonspecific bone marrow edema associated with the L3 vertebral body and inferior endplate. Some equivocal abnormal T2 signal within the disc space at L3-4 as well. There is no widening of the disc space or surrounding inflammatory change. An infectious process is therefore felt less likely. Superimposed degenerative changes at this level, as above. No greater than mild central canal stenosis and mild neural foraminal narrowing at this level. Other areas of minor degenerative changes throughout the lumbar spine. . copyright 2010 [employer]- All Rights Reserved
--- NOTE | 2020-03-19 22:53 | RADIOLOGY REPORT (SQ) ---
EXAM DESCRIPTION: MR THORACIC SPINE WITHOUT IV CONTRAST COMPLETED DATE/TME: 03/19/2020 14:53 CLINICAL HISTORY: 89 years, Male, pain COMPARISON: CT thoracic spine 03/19/2020 TECHNIQUE: 192 Images stored on PACS. LIMITATIONS: None. FINDINGS: There is significant accentuation of the patient's normal thoracic kyphosis, however vertebral body height and alignment is otherwise preserved and there is no abnormal marrow signal or bone marrow edema. Normal signal in the visualized spinal cord. Limited evaluation of extraspinal anatomic structures is grossly unremarkable. No MR evidence for focal disc bulge or protrusion in the thoracic spine. No MR evidence for central canal stenosis or neural foraminal compromise anywhere in the thoracic spine. IMPRESSION: There is accentuation of the patient's normal thoracic kyphosis, however no bone marrow edema. No central canal stenosis at any level. copyright 2010 [employer]- All Rights Reserved
[2020-03-19] MEDS: HEPARIN SOD (PORCINE) 5,000 UNIT/ML 1 ML VIAL SUBCUT SCH (23:14)
[2020-03-19] MEDS: SIMVASTATIN 10 MG TABLET PO SCH (23:14)
[2020-03-19] MEDS: ACETAMINOPHEN 325 MG TABLET PO PRN (23:21)
[2020-03-20] MEDS ORDERED: LIDOCAINE 5% (700 MG) TRANSDERMAL ADH..PATCH ONE (00:50)
[2020-03-20 06:33] LABS: HEMATOCRIT 45.1 % (37.9-51.0); HEMOGLOBIN 14.9 g/dL (13.5-17.0); MEAN CORPUSCULAR HEMOGLOBIN 29.6 pg (27.0-33.4); MEAN CORPUSCULAR VOLUME 90 fl (80-97); PLATELET COUNT 165 10^3/uL (150-450); RED BLOOD COUNT 5.01 10^6/uL (4.35-5.55); RED CELL DISTRIBUTION WIDTH 14.5 % (11.5-14.0)
[2020-03-20] MEDS: HEPARIN SOD (PORCINE) 5,000 UNIT/ML 1 ML VIAL SUBCUT SCH ×3 (06:50→22:31)
[2020-03-20 07:23] LABS: ALBUMIN 3.5 g/dL (3.5-5.0); ALKALINE PHOSPHATASE 60 U/L (38-126); ANION GAP 6 (5-19); ASPARTATE AMINO TRANSFERASE 25 U/L (17-59); BILIRUBIN,DIRECT 0.5 mg/dL (0.0-0.4); BILIRUBIN,TOTAL 1.4 mg/dL (0.2-1.3); BLOOD UREA NITROGEN 26 mg/dL (7-20); CALCIUM 8.9 mg/dL (8.4-10.2); CARBON DIOXIDE 26 mmol/L (22-30); CHLORIDE 107 mmol/L (98-107); GLUCOSE 79 mg/dL (75-110); POTASSIUM 4.5 mmol/L (3.6-5.0); TOTAL PROTEIN 6.4 g/dL (6.3-8.2)
[2020-03-20] MEDS: ACETAMINOPHEN 325 MG TABLET PO PRN (08:34)
[2020-03-20] MEDS: TAMSULOSIN HCL 0.4 MG CAP.SR.24H PO SCH (11:24)
[2020-03-20] MEDS: ASPIRIN 81 MG TABLET, CHEWABLE PO SCH (11:24)
[2020-03-20] MEDS: DOCUSATE SODIUM 100 MG/10 ML UDC PO SCH ×2 (11:25→17:02)
[2020-03-20] MEDS ORDERED: HYDROMORPHONE HCL INJ/PF 2 MG/ML AMPULE IV PRN (21:55)
[2020-03-20] MEDS ORDERED: HYDROCODONE/ACETAMINOPHEN 5-325 MG TABLET PO PRN (21:56)
[2020-03-20] MEDS ORDERED: SENNOSIDES/DOCUSATE 8.6-50 MG 1 EACH TABLET PO SCH (22:00)
--- NOTE | 2020-03-20 22:03 | PDOC PROGRESS REPORT ---
Subjective Progress Note for:: 03/20/20 Subjective:: joselyn Carbajal 89/M, who was admitted from the ED due to acute back pain less than 2 weeks duration. MRI did not show any significant findings except for degenerative changes, no fractures, significant spinal stenosis. He was seen and examined at bedside, he was unable to work with PT OT due to back pain. Otherwise denies any fever chest pain shortness of breath, no bowel or bladder incontinence Reason For Visit: ACUTE BACK PAIN Physical Exam Vital Signs: Temp Pulse Resp BP Pulse Ox 97.9 F 64 16 117/51 L 94 03/20/20 20:07 03/20/20 20:07 03/20/20 20:07 03/20/20 20:07 03/20/20 20:07 Intake & Output 03/19/20 03/20/20 03/21/20 06:59 06:59 06:59 Intake Total 540 720 Output Total 500 Balance 40 720 Weight 55 kg General appearance: PRESENT: no acute distress, cooperative Head exam: PRESENT: atraumatic, normocephalic Eye exam: PRESENT: EOMI, PERRLA Mouth exam: PRESENT: moist Neck exam: PRESENT: full ROM. ABSENT: JVD Respiratory exam: PRESENT: clear to auscultation sharmin, symmetrical, unlabored. ABSENT: rales, rhonchi Cardiovascular exam: PRESENT: RRR, +S1, +S2 Pulses: PRESENT: +2 pedal pulses bilateral Vascular exam: PRESENT: normal capillary refill GI/Abdominal exam: PRESENT: soft. ABSENT: tenderness Rectal exam: PRESENT: deferred Extremities exam: PRESENT: full ROM, other - No midline tenderness Musculoskeletal exam: PRESENT: other - No midline tenderness, positive straight leg test Neurological exam: PRESENT: alert, awake, oriented to person, oriented to place, oriented to time, oriented to situation Psychiatric exam: PRESENT: normal mood Skin exam: PRESENT: normal color Results Laboratory Results: 03/20/20 05:40 03/20/20 05:40 03/20/20 03/20/20 05:40 05:40 WBC 8.0 RBC 5.01 Hgb 14.9 Hct 45.1 MCV 90 MCH 29.6 MCHC 33.0 RDW 14.5 H Plt Count 165 Sodium 139.0 Potassium 4.5 Chloride 107 Carbon Dioxide 26 Anion Gap 6 BUN 26 H Creatinine 2.04 H Est GFR ( Amer) 37 L Glucose 79 Calcium 8.9 Total Bilirubin 1.4 H AST 25 Alkaline Phosphatase 60 Total Protein 6.4 Albumin 3.5 Impressions: Lumbar Spine CT 03/19/20 12:20 IMPRESSION: CHRONIC DEGENERATIVE CHANGES. NO ACUTE FINDINGS. Thoracic Spine CT 03/19/20 12:20 IMPRESSION: CHRONIC DEGENERATIVE CHANGES WITHOUT ACUTE FRACTURE. Lumbar Spine MRI 03/19/20 14:53 IMPRESSION: Nonspecific bone marrow edema associated with the L3 vertebral body and inferior endplate. Some equivocal abnormal T2 signal within the disc space at L3-4 as well. There is no widening of the disc space or surrounding inflammatory change. An infectious process is therefore felt less likely. Superimposed degenerative changes at this level, as above. No greater than mild central canal stenosis and mild neural foraminal narrowing at this level. Other areas of minor degenerative changes throughout the lumbar spine. . copyright 2010 [employer]- All Rights Reserved Thoracic Spine MRI 03/19/20 14:53 IMPRESSION: There is accentuation of the patient's normal thoracic kyphosis, however no bone marrow edema. No central canal stenosis at any level. copyright 2011 [employer]- All Rights Reserved Assessment and Plan - Diagnosis (1) Acute back pain less than 4 weeks duration Is this a current diagnosis for this admission?: Yes Plan: -History of fall 10 days prior, history of colorectal cancer which are red flags for acute back pain -No bowel or bladder incontinence no saddle anesthesia no fever no weight loss -Positive straight leg test -CT of thoracic lumbar spine chronic degenerative changes no acute fracture -Differential is MSK, versus vertebral fracture, versus pathologic fracture -MRI chronic degenerative changes no significant spinal stenosis no thoracolumbar fracture -IV Dilaudid for severe pain, norco moderate pain -Lidoderm patch and heating packs for local pain control -Unable to work with physical therapy due to severe pain -IV pain medications increased oral opioids added (2) Chronic kidney disease, stage III (moderate) Is this a current diagnosis for this admission?: Yes Plan: -History of chronic kidney disease stage III -Baseline creatinine around 2, creatinine 1.9 which is around his baseline -Due to history of CKD he would need close monitoring of creatinine and mental status now that he is on Dilaudid and oral opioids -We will avoid NSAIDs for back pain because of CKD -continue to monitor creatinine daily - (3) Coronary artery disease Qualifiers: Coronary Disease-Associated Artery/Lesion type: bypass graft [place] vs. transplanted heart: [place] heart Associated angina: without angina Qualified Code(s): I25.810 - Atherosclerosis of coronary artery bypass graft(s) without angina pectoris Is this a current diagnosis for this admission?: Yes Plan: -Review of prior CABG -No chest pain -Continue aspirin (4) BPH (benign prostatic hyperplasia) Qualifiers: Lower urinary tract symptom presence: symptoms absent Qualified Code(s): N40.0 - Benign prostatic hyperplasia without lower urinary tract symptoms Is this a current diagnosis for this admission?: Yes Plan: -Denies dysuria frequency hesitancy -Tamsulosin resumed (5) Status post ileostomy Is this a current diagnosis for this admission?: Yes - Plan Summary Summary: Patient is an 89-year-old male history of colorectal cancer prior CABG admitted due to acute onset of back pain. Also states that he lives with his who recently suffered a stroke and he will be able to take care of her. Case management consulted. This unable to work with PT OT due to severe pain, IV Dilaudid and [place] started - Time Time Spent with patient: 15-24 minutes Anticipated Discharge Disposition: Home with Home Health Anticipated Discharge Timeframe: To be determined
[2020-03-20] MEDS: SIMVASTATIN 10 MG TABLET PO SCH (22:30)
[2020-03-21 06:34] LABS: HEMATOCRIT 44.8 % (37.9-51.0); HEMOGLOBIN 15.1 g/dL (13.5-17.0); MEAN CORPUSCULAR HEMOGLOBIN 29.9 pg (27.0-33.4); MEAN CORPUSCULAR HGB CONC 33.7 g/dL (32.0-36.0); MEAN CORPUSCULAR VOLUME 89 fl (80-97); PLATELET COUNT 148 10^3/uL (150-450); RED BLOOD COUNT 5.04 10^6/uL (4.35-5.55); RED CELL DISTRIBUTION WIDTH 14.2 % (11.5-14.0); WHITE BLOOD COUNT 8.9 10^3/uL (4.0-10.5)
[2020-03-21] MEDS: DOCUSATE SODIUM 100 MG/10 ML UDC PO SCH ×2 (10:35→18:22)
[2020-03-21] MEDS: TAMSULOSIN HCL 0.4 MG CAP.SR.24H PO SCH (10:35)
[2020-03-21] MEDS: ASPIRIN 81 MG TABLET, CHEWABLE PO SCH (10:35)
[2020-03-21 17:15] VITALS: BP 131/60
[2020-03-21] MEDS: HEPARIN SOD (PORCINE) 5,000 UNIT/ML 1 ML VIAL SUBCUT SCH (18:21)
--- NOTE | 2020-03-21 19:57 | PDOC DISCHARGE SUMMARY ---
Impression - Admit/DC Date/PCP Admission Date/Primary Care Provider: 03/19/20 15:41 PEDRO PABLO SHETH PA-C Discharge Date: 03/21/20 - Discharge Diagnosis (1) Acute back pain less than 4 weeks duration Is this a current diagnosis for this admission?: Yes (2) Chronic kidney disease, stage III (moderate) Is this a current diagnosis for this admission?: Yes (3) Coronary artery disease Is this a current diagnosis for this admission?: Yes (4) BPH (benign prostatic hyperplasia) Is this a current diagnosis for this admission?: Yes (5) Status post ileostomy Is this a current diagnosis for this admission?: Yes - Assessment Summary: Patient is an 89-year-old male history of colorectal cancer prior CABG admitted due to acute onset of back pain. Also states that he lives with his who recently suffered a stroke and he will be able to take care of her. Case management consulted. This unable to work with PT OT due to severe pain, IV Dilaudid and [place] started - Additional Information Discharge Diet: As Tolerated Discharge Activity: Activity As Tolerated, Walk Frequently Referrals: VALENTINE ALMANZAR MD [HONORARY] - 03/28/20 10:30 am Prescriptions: Diclofenac Sodium/Lidocaine [Lidovix] 1 each MC RTQ8HP PRN 30 Days #10 combo..pkg PRN Reason: For Back Pain Hydrocodone/Acetaminophen [[place] 5-325 mg Tablet] 1 tab PO Q8HP PRN 5 Days #15 tablet PRN Reason: Sennosides/Docusate 8.6-50 mg [Senna Plus Tablet] 2 each PO QHS 5 Days #14 tablet Acetaminophen [Tylenol 325 mg Tablet] 650 mg PO Q4HP PRN 30 Days #30 tablet PRN Reason: Home Medications: Cetirizine HCl [Zyrtec] 10 mg PO DAILY 11/04/14 Simvastatin 40 mg PO QHS 11/04/14 Tamsulosin HCl [Flomax] 0.4 mg PO DAILY 11/04/14 Meclizine HCl 25 mg PO TID 11/18/14 Cholestyramine/Aspartame [Questran Light 4 gm Packet] 4 gm PO MEALS #60 packet 11/22/14 Ondansetron HCl [Zofran] 4 mg PO TID 03/19/20 Pantoprazole Sodium [Protonix [address] Tablet] 40 mg PO DAILY 03/19/20 Acetaminophen [Tylenol 325 mg Tablet] 650 mg PO Q4HP PRN 30 Days #30 tablet 03/21/20 Aspirin [Aspirin 81 mg Chewable Tablet] 81 mg PO DAILY tab.chew 03/21/20 Diclofenac Sodium/Lidocaine [Lidovix] 1 each MC RTQ8HP PRN 30 Days #10 combo..pkg 03/21/20 Hydrocodone/Acetaminophen [Holbrook 5-325 mg Tablet] 1 tab PO Q8HP PRN 5 Days #15 tablet 03/21/20 Sennosides/Docusate 8.6-50 mg [Senna Plus Tablet] 2 each PO QHS 5 Days #14 tablet 03/21/20 History of Present Illiness History of Present Illness: JEIMY EDWARDS is a 89 year old male, past medical history of prior CABG ,hyperlipidemia, type 2 diabetes, colon cancer status post colectomy 1980s with ileostomy, questionable history of brain tumor, BPH who came in the emergency room today due to back pain of 2 weeks duration about 10 days prior to admission the patient apparently fell and hit his back he denies any loss of consciousness and he was initially okay However 5 days prior to consult around Wednesday he started to experience severe back pain, 10 out of 10, partially relieved by Tylenol, nonradiating, lumbar area. Denies any bowel or bladder incontinence no leg weakness or numbness, no fever, no saddle anesthesia. He is concerned because he lives with his who recently suffered a stroke and stated that he would not be able to take care of her. In the emergency room vital signs were 157/80 heart rate of 92 respiratory rate of 16. Neurologic exam did not show any focal neurologic deficit. CBC was unremarkable, BMP showed a creatinine of 1.91 which is around his baseline. He was given IV fentanyl IV morphine and Tylenol. CT scan of thoracic and lumbar spine showed chronic degenerative changes, no acute findings. He was subsequently admitted for further evaluation and management Hospital Course Hospital Course: D2 hospital stay, he was unable to work with PT OT due to back pain. Otherwise denies any fever chest pain shortness of breath, no bowel or bladder incontinence. Pain medications adjusted D3 Hospital stay. He was able to work with PT/OT. He was discharged on norco 10 tablets for pain, lidocaine patch, advbised to use heating pads. Home PT/OT, RN ordered Physical Exam Vital Signs: Temp Pulse Resp BP Pulse Ox 98.1 F 78 18 131/60 H 96 03/21/20 18:19 03/21/20 18:19 03/21/20 18:19 03/21/20 18:19 03/21/20 18:19 Intake & Output 03/20/20 03/21/20 03/22/20 06:59 06:59 06:59 Intake Total 540 720 520 Output Total 500 650 500 Balance 40 70 20 Weight 55 kg 54.2 kg General appearance: PRESENT: no acute distress, cooperative Head exam: PRESENT: atraumatic, normocephalic Eye exam: PRESENT: EOMI, PERRLA Mouth exam: PRESENT: moist, neck supple Neck exam: PRESENT: full ROM. ABSENT: JVD Respiratory exam: PRESENT: clear to auscultation sharmin, symmetrical, unlabored. ABSENT: tachypnea Cardiovascular exam: PRESENT: RRR, +S1, +S2 GI/Abdominal exam: PRESENT: normal bowel sounds, soft. ABSENT: guarding, rebound, tenderness Extremities exam: PRESENT: other - limited ROM back Musculoskeletal exam: PRESENT: ambulatory Neurological exam: PRESENT: alert, awake, oriented to person, oriented to place, oriented to time, oriented to situation Psychiatric exam: PRESENT: normal mood Skin exam: PRESENT: normal color Results Laboratory Results: WBC 8.9 10^3/uL (4.0-10.5) 03/21/20 05:53 RBC 5.04 10^6/uL (4.35-5.55) 03/21/20 05:53 Hgb 15.1 g/dL (13.5-17.0) 03/21/20 05:53 Hct 44.8 % (37.9-51.0) 03/21/20 05:53 MCV 89 fl (80-97) 03/21/20 05:53 MCH 29.9 pg (27.0-33.4) 03/21/20 05:53 MCHC 33.7 g/dL (32.0-36.0) 03/21/20 05:53 RDW 14.2 % (11.5-14.0) H 03/21/20 05:53 Plt Count 148 10^3/uL (150-450) L 03/21/20 05:53 Lymph % (Auto) 18.6 % (13-45) 03/19/20 15:57 [place] % (Auto) 6.7 % (3-13) 03/19/20 15:57 Eos % (Auto) 0.5 % (0-6) 03/19/20 15:57 Baso % (Auto) 0.4 % (0-2) 03/19/20 15:57 Absolute Neuts (auto) 7.8 10^3/uL (1.7-8.2) 03/19/20 15:57 Absolute Lymphs (auto) 2.0 10^3/uL (0.5-4.7) 03/19/20 15:57 Absolute Monos (auto) 0.7 10^3/uL (0.1-1.4) 03/19/20 15:57 Absolute Eos (auto) 0.1 10^3/uL (0.0-0.6) 03/19/20 15:57 Absolute Basos (auto) 0.0 10^3/uL (0.0-0.2) 03/19/20 15:57 Seg Neutrophils % 73.8 % (42-78) 03/19/20 15:57 Sodium 139.0 mmol/L (137-145) 03/20/20 05:40 Potassium 4.5 mmol/L (3.6-5.0) 03/20/20 05:40 Chloride 107 mmol/L (98-107) 03/20/20 05:40 Carbon Dioxide 26 mmol/L (22-30) 03/20/20 05:40 Anion Gap 6 (5-19) 03/20/20 05:40 BUN 26 mg/dL (7-20) H 03/20/20 05:40 Creatinine 2.04 mg/dL (0.52-1.25) H 03/20/20 05:40 Est GFR ( Amer) 37 (>60) L 03/20/20 05:40 Est GFR (MDRD) Non-Af 31 (>60) L 03/20/20 05:40 Glucose 79 mg/dL (75-110) 03/20/20 05:40 Calcium 8.9 mg/dL (8.4-10.2) 03/20/20 05:40 Total Bilirubin 1.4 mg/dL (0.2-1.3) H 03/20/20 05:40 Direct Bilirubin 0.5 mg/dL (0.0-0.4) H 03/20/20 05:40 Neonat Total Bilirubin Not Reportable 03/20/20 05:40 Neonat Direct Bilirubin Not Reportable 03/20/20 05:40 Neonat Indirect Bili Not Reportable 03/20/20 05:40 AST 25 U/L (17-59) 03/20/20 05:40 ALT 13 U/L (<50) 03/20/20 05:40 Alkaline Phosphatase 60 U/L (38-126) 03/20/20 05:40 Total Protein 6.4 g/dL (6.3-8.2) 03/20/20 05:40 Albumin 3.5 g/dL (3.5-5.0) 03/20/20 05:40 Urine Color YELLOW 03/19/20 12:48 Urine Appearance SLIGHTLY-CLOUDY 03/19/20 12:48 Urine pH 5.0 (5.0-9.0) 03/19/20 12:48 Ur Specific [place] 1.020 03/19/20 12:48 Urine Protein 100 mg/dL (NEGATIVE) H 03/19/20 12:48 Urine Glucose (UA) NEGATIVE mg/dL (NEGATIVE) 03/19/20 12:48 Urine Ketones TRACE mg/dL (NEGATIVE) H 03/19/20 12:48 Urine Blood NEGATIVE (NEGATIVE) 03/19/20 12:48 Urine Nitrite NEGATIVE (NEGATIVE) 03/19/20 12:48 Urine Bilirubin NEGATIVE (NEGATIVE) 03/19/20 12:48 Urine Urobilinogen NEGATIVE mg/dL (<2.0) 03/19/20 12:48 Ur Leukocyte Esterase NEGATIVE (NEGATIVE) 03/19/20 12:48 Urine WBC (Auto) 1 /HPF 03/19/20 12:48 Urine RBC (Auto) 1 /HPF 03/19/20 12:48 U Hyaline Cast (Auto) 1 /LPF 03/19/20 12:48 Squamous Epi Cells Auto <1 /HPF 03/19/20 12:48 Urine Mucus (Auto) OCC /LPF 03/19/20 12:48 Urine Ascorbic Acid 20 (NEGATIVE) H 03/19/20 12:48 Impressions: Lumbar Spine CT 03/19/20 12:20 IMPRESSION: CHRONIC DEGENERATIVE CHANGES. NO ACUTE FINDINGS. Thoracic Spine CT 03/19/20 12:20 IMPRESSION: CHRONIC DEGENERATIVE CHANGES WITHOUT ACUTE FRACTURE. Lumbar Spine MRI 03/19/20 14:53 IMPRESSION: Nonspecific bone marrow edema associated with the L3 vertebral body and inferior endplate. Some equivocal abnormal T2 signal within the disc space at L3-4 as well. There is no widening of the disc space or surrounding inflammatory change. An infectious process is therefore felt less likely. Superimposed degenerative changes at this level, as above. No greater than mild central canal stenosis and mild neural foraminal narrowing at this level. Other areas of minor degenerative changes throughout the lumbar spine. . copyright 2010 [employer]- All Rights Reserved Thoracic Spine MRI 03/19/20 14:53 IMPRESSION: There is accentuation of the patient's normal thoracic kyphosis, however no bone marrow edema. No central canal stenosis at any level. copyright 2010 [employer]- All Rights Reserved Plan Health Concerns: - to go home on downs for pain control for 5 days. Advised to modify physical activity, no prolonged bed rest Time Spent: Less than 30 Minutes Stroke Is this a Stroke Patient?: No Acute Heart Failure - Is this a Heart Failure Patient?: No
== END 2020-03-21 19:30 | disposition home or self-care (01) ==
LOC: ER 11:29 → INTOOBSV 15:41 → EH 15:41 → 4S 17:20
PROVIDERS: ADMIT Internal Medicine; ATTEND Internal Medicine
DX: M54.5 Low back pain (principal); W19.XXXA Unspecified fall, initial encounter; Y92.009 Unspecified place in unspecified non-institutional (private) residence as the place of occurrence of the external cause; N40.0 Benign prostatic hyperplasia without lower urinary tract symptoms; I25.810 Atherosclerosis of coronary artery bypass graft(s) without angina pectoris; N18.3 Chronic kidney disease, stage 3 (moderate); E78.5 Hyperlipidemia, unspecified; M40.294 Other kyphosis, thoracic region; M10.9 Gout, unspecified; H53.9 Unspecified visual disturbance; R53.1 Weakness; M51.34 Other intervertebral disc degeneration, thoracic region; M51.36 Other intervertebral disc degeneration, lumbar region; Z93.2 Ileostomy status; Z95.1 Presence of aortocoronary bypass graft; Z85.038 Personal history of other malignant neoplasm of large intestine; Z79.82 Long term (current) use of aspirin; Z79.899 Other long term (current) drug therapy; Z86.39 Personal history of other endocrine, nutritional and metabolic disease
CPT/HCPCS: 99285; 96372; 96361; 96374; 36415 ×3; 85025; 85027 ×2; 80048; 80053; 81001; 72146; 72148; 72128; 72131; 97530 ×2; 97110; 97116; 97163; 97167; G0378 ×2; A9270 ×11; J1644 ×2; J3010; J2270; J1170; J7030

== ENCOUNTER 2020-03-30 15:28 | Emergency (ER) | payer MEDICARE ==
--- NOTE | 2020-03-30 16:26 | ER Document Report ---
Entered by ZHANNA ALBERT SCRIBE 03/30/20 [id number] Acting as scribe for:KATHERINE GONSALEZ DO ED General - General Chief Complaint: Back Pain Stated Complaint: BACK PAIN Time Seen by Provider: 03/30/20 15:42 Primary Care Provider: PEDRO PABLO SHETH PA-C [Primary Care Provider] - Follow up as needed Information source: Patient Notes: This 89 year old male patient presents to the emergency department today with lower back pain for the past x1 week. Patient states he has not been able to walk or stand due to the pain. Patient states he visited the ED x11 days ago for back pain and was admitted for a few days. Patient states he did not clam picker his pain medication from his last visit until yesterday and took x1 before arriving to the ED today. Patient reports nausea without vomiting and has not eaten the past x3 days. Patient states he fell around x1 week ago and denies any hip pain. Denies any cough, chest pain, or shortness of breath. Patient denies nausea while in the ED today and states his urine is slightly dark. TRAVEL OUTSIDE OF THE [place] IN LAST 30 DAYS: No - Related Data Allergies/Adverse Reactions: No Known Allergies Allergy (Verified 03/30/20 16:01) Past Medical History - General Information source: Patient - Social History Smoking Status: Never Smoker Cigarette use (# per day): No Lives with: Spouse/Significant other Family History: Reviewed & Not Pertinent - Past Medical History Cardiac Medical History: Reports: Hx Heart Attack, Hx Hypercholesterolemia, Hx Hypertension Endocrine Medical History: Reports: Hx Diabetes Mellitus Type 2 - Not on medication Renal/ Medical History: Reports: Hx Benign Prostatic Hyperplasia, Hx Renal Insufficiency Malignancy Medical History: Reports Hx Colorectal Cancer Musculoskeletal Medical History: Reports Hx Gout Past Surgical History: Reports: Hx Bowel Surgery - iliostomy, Hx Cardiac Surgery - CABG x5, Hx Coronary Artery Bypass Graft, Hx Ileostomy, Hx Neurologic Surgery - tumor removed, Other - Brain surgery? - Immunizations Hx Diphtheria, Pertussis, Tetanus Vaccination: - unknown Review of Systems - Review of Systems Constitutional: No symptoms reported EENT: No symptoms reported Cardiovascular: See HPI. denies: Chest pain Respiratory: See HPI. denies: Cough, Short of breath Gastrointestinal: See HPI, Nausea, Poor appetite. denies: Vomiting Genitourinary: See HPI Male Genitourinary: No symptoms reported Musculoskeletal: See HPI, Back pain Skin: No symptoms reported Hematologic/Lymphatic: No symptoms reported Neurological/Psychological: No symptoms reported -: Yes All other systems reviewed and negative Physical Exam - General Notes: Appears frail and disheveled. Alert. Poor hygiene. - HEENT Head: Normocephalic, Atraumatic Eyes: Normal Pupils: PERRL Mucous membranes: Dry - Respiratory Respiratory status: No respiratory distress Chest status: Nontender Breath sounds: Normal Chest palpation: Normal - Cardiovascular Rhythm: Regular Heart sounds: Normal auscultation Murmur: No - Abdominal Inspection: Obese Distension: No distension Bowel sounds: Normal Tenderness: Nontender Notes: Abdomen is soft. Ostomy bag in the LLQ. - Back Notes: Tenderness with palpation to the midline and right paraspinal lumbar region from L1-L4. - Extremities General upper extremity: Normal inspection. No: Edema General lower extremity: Normal inspection, Nontender, Normal ROM. No: Edema - Neurological Neuro grossly intact: Yes Cognition: Normal Orientation: AAOx4 [place] Coma Scale Eye Opening: Spontaneous [place] Coma Scale Verbal: Oriented [place] Coma Scale Motor: Obeys Commands [place] Coma Scale Total: 15 Speech: Normal - Psychological Associated symptoms: Normal affect, Normal mood - Skin Skin Temperature: Warm Skin Moisture: Dry Skin Color: Normal Skin irregularity: negative: Rash Course - Re-evaluation Re-evalutation: 03/30/20 20:38 MDM 89 year old male arrives with back pain. Recent admit for same. He is frustrated as he can not well walk or function well at home. Reports initally he did never get his pain medicine when discharged from here recently then tells me immediately before arrival here he took a pain pill. No fever. Doubt epidural abcess or similar emergency with nl neuro exam plus absence of fever, wbc or CRP elevation in combination with recent MRI that was reassuring regarding this. I have discussed the pt with the hopsitalist team and they saw and evaluated the pt and rec follow up. SW consult placed but after initially telling me he wanted placement now he does not. Will dc with follow up with PCP and attempt for outpt PT/ ot. - Laboratory Result Diagrams: 03/30/20 17:00 03/30/20 17:00 Laboratory results interpreted by me: 03/30/20 03/30/20 03/30/20 17:00 17:00 18:27 WBC 12.2 H Absolute Neuts (auto) 9.7 H Seg Neutrophils % 79.4 H Potassium 5.2 H BUN 46 H Creatinine 2.20 H Est GFR ( Amer) 34 L Est GFR (MDRD) Non-Af 28 L Glucose 122 H Magnesium 2.7 H Urine Protein 30 H Urine Ketones TRACE H - Diagnostic Test Radiology reviewed: Reports reviewed Discharge - Discharge Clinical Impression: Chronic kidney disease, stage III (moderate) Back pain Qualifiers: Back pain location: low back pain Chronicity: acute Back pain laterality: midline Sciatica presence: unspecified whether sciatica present Qualified Code(s): M54.5 - Low back pain DJD (degenerative joint disease) Qualifiers: Osteoarthritis location: spine Spinal region: lumbosacral Spinal osteoarthritis complication: unspecified spinal osteoarthritis Qualified Code(s): 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 Take your pain pills or tylenol as needed for pain. Return here for fever, chills, increasing pain, or other problems or concerns. Call your doctor Wednesday morning of follow up Referrals: PEDRO PABLO SHETH PA-C [Primary Care Provider] - 04/01/20 I personally performed the services described in the documentation, reviewed and edited the documentation which was dictated to the scribe in my presence, and it accurately records my words and actions.
--- NOTE | 2020-03-30 16:41 | RADIOLOGY REPORT (SQ) ---
EXAM DESCRIPTION: CHEST SINGLE VIEW IMAGES COMPLETED DATE/TIME: 03/30/2020 4:24 pm REASON FOR STUDY: htn COMPARISON: 11/18/2014 EXAM PARAMETERS: NUMBER OF VIEWS: One view. TECHNIQUE: Single frontal radiographic view of the chest acquired. RADIATION DOSE: NA LIMITATIONS: None. FINDINGS: LUNGS AND PLEURA: Re- demonstration of chronic interstitial lung disease. No discrete foc al consolidation, pleural effusion, or pneumothorax. MEDIASTINUM AND HILAR STRUCTURES: No masses. Contour normal. HEART AND VASCULAR STRUCTURES: Heart normal in size. Normal vasculature. BONES: No acute findings. HARDWARE: Midline surgical changes. OTHER: No other significant finding. IMPRESSION: Stable radiographic appearance of the chest demonstrating midline surgical changes and c hronic interstitial lung disease. No discrete radiographic evidence of acute cardiopulmonary abnorma lity. TECHNICAL DOCUMENTATION: JOB ID: [id number] 2010 [employer]- All Rights Reserved Reading location - IP/workstation name: [email or web address]
[2020-03-30 17:23] LABS: ABSOLUTE LYMPHOCYTES (AUTO) 1.7 10^3/uL (0.5-4.7); ABSOLUTE MONOCYTES (AUTO) 0.8 10^3/uL (0.1-1.4); ABSOLUTE NEUT (AUTO) 9.7 10^3/uL (1.7-8.2); BASOPHILS % (AUTO) 0.2 % (0-2); EOSINOPHILS % (AUTO) 0.2 % (0-6); HEMATOCRIT 45.6 % (37.9-51.0); HEMOGLOBIN 15.4 g/dL (13.5-17.0); LYMPHOCYTES % (AUTO) 13.6 % (13-45); MEAN CORPUSCULAR HEMOGLOBIN 29.8 pg (27.0-33.4); MEAN CORPUSCULAR HGB CONC 33.7 g/dL (32.0-36.0); MEAN CORPUSCULAR VOLUME 89 fl (80-97); MONOCYTES % (AUTO) 6.6 % (3-13); PLATELET COUNT 239 10^3/uL (150-450); RED BLOOD COUNT 5.15 10^6/uL (4.35-5.55); SEGMENTED NEUTROPHILS % (AUTO) 79.4 % (42-78); TOTAL CELLS COUNTED % (AUTO) 100 %; WHITE BLOOD COUNT 12.2 10^3/uL (4.0-10.5)
[2020-03-30 17:42] LABS: ALBUMIN 4.2 g/dL (3.5-5.0); ALKALINE PHOSPHATASE 99 U/L (38-126); ANION GAP 8 (5-19); ASPARTATE AMINO TRANSFERASE 21 U/L (17-59); BILIRUBIN,DIRECT 0.4 mg/dL (0.0-0.4); BLOOD UREA NITROGEN 46 mg/dL (7-20); CALCIUM 9.7 mg/dL (8.4-10.2); CARBON DIOXIDE 30 mmol/L (22-30); CHLORIDE 101 mmol/L (98-107); GLUCOSE 122 mg/dL (75-110); POTASSIUM 5.2 mmol/L (3.6-5.0); TOTAL PROTEIN 7.5 g/dL (6.3-8.2)
[2020-03-30 17:45] LABS: C-REACTIVE PROTEIN < 5.0 mg/L (<10.0)
[2020-03-30] MEDS ORDERED: NORMAL SALINE 1000 ML 1,000 ML IV ONE (18:03)
--- NOTE | 2020-03-30 18:59 | PDOC CONSULTATION ---
Consultation Consult Date: 03/30/20 Attending physician:: KATHERINE GONSALEZ Provider Consulted: JOSE PORTILLO Consult reason:: Back pain History of Present Illness Admission Date/PCP: PEDRO PABLO SHETH PA-C History of Present Illness: JEIMY EDWARDS is a 89 year old male who was recently admitted to the hospital for evaluation of back pain which was sustained after having a fall while he was at the diagnostic center, presents once again with complaint of persistent back pain. States that he would like some pain medications because he is back pain is quite severe limiting his ambulation. Denies any bowel incontinence. 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 There was no spinal compression noted. ER provider consulting medical service for evaluation of back pain given ambulatory dysfunction and renal failure. Patient denies any nausea or vomiting. Denies any lightheadedness or dizziness. Past Medical History Cardiac Medical History: Reports: Myocardial Infarction, Hyperlipidema, Hypertension Endocrine Medical History: Reports: Diabetes Mellitus Type 2 - Not on medication Denies: Hyperthyroidism Malignancy Medical History: Reports: Colorectal Cancer Musculoskeltal Medical History: Reports: Gout Psychiatric Medical History: Denies: Depression Past Surgical History Past Surgical History: Reports: Coronary Artery Bypass Graft, Ileostomy, Other - Brain surgery? Social History Lives with: Spouse/Significant other Smoking Status: Never Smoker Frequency of Alcohol Use: None Hx Recreational Drug Use: No Drugs: None Hx Prescription Drug Abuse: No Family History Family History: Reviewed & Not Pertinent Parental Family History Reviewed: No Children Family History Reviewed: NA Sibling(s) Family History Reviewed.: NA Medication/Allergy Home Medications: Cetirizine HCl [Zyrtec] 10 mg PO DAILY 11/04/14 Simvastatin 40 mg PO QHS 11/04/14 Tamsulosin HCl [Flomax] 0.4 mg PO DAILY 11/04/14 Meclizine HCl 25 mg PO TID 11/18/14 Cholestyramine/Aspartame [Questran Light 4 gm Packet] 4 gm PO MEALS #60 packet 11/22/14 Ondansetron HCl [Zofran] 4 mg PO TID 03/19/20 Pantoprazole Sodium [Protonix [address] Tablet] 40 mg PO DAILY 03/19/20 Acetaminophen [Tylenol 325 mg Tablet] 650 mg PO Q4HP PRN 30 Days #30 tablet 03/21/20 Aspirin [Aspirin 81 mg Chewable Tablet] 81 mg PO DAILY tab.chew 03/21/20 Diclofenac Sodium/Lidocaine [Lidovix] 1 each MC RTQ8HP PRN 30 Days #10 combo..pkg 03/21/20 Hydrocodone/Acetaminophen [Blanco 5-325 mg Tablet] 1 tab PO Q8HP PRN 5 Days #15 tablet 03/21/20 Sennosides/Docusate 8.6-50 mg [Senna Plus Tablet] 2 each PO QHS 5 Days #14 table t 03/21/20 Allergies/Adverse Reactions: No Known Allergies Allergy (Verified 03/30/20 16:01) Review of Systems Constitutional: ABSENT: fatigue, fever(s) Cardiovascular: ABSENT: chest pain Respiratory: ABSENT: dyspnea Physical Exam Vital Signs: Intake & Output 03/29/20 03/30/20 03/31/20 06:59 06:59 06:59 Weight 49.2 kg General appearance: PRESENT: no acute distress, cooperative Neck exam: ABSENT: JVD Respiratory exam: PRESENT: clear to auscultation sharmin, unlabored. ABSENT: wheezes Cardiovascular exam: PRESENT: +S1, +S2. ABSENT: tachycardia Musculoskeletal exam: PRESENT: tenderness - Overall lower spine and lumbar region as well as right paraspinal region. Neurological exam: PRESENT: alert, awake Results Laboratory Results: 03/30/20 17:00 03/30/20 17:00 03/30/20 03/30/20 03/30/20 17:00 17:00 17:00 WBC 12.2 H RBC 5.15 Hgb 15.4 Hct 45.6 MCV 89 MCH 29.8 MCHC 33.7 RDW 14.0 Plt Count 239 Seg Neutrophils % 79.4 H Sodium 139.4 Potassium 5.2 H Chloride 101 Carbon Dioxide 30 Anion Gap 8 BUN 46 H Creatinine 2.20 H Est GFR ( Amer) 34 L Glucose 122 H Calcium 9.7 Magnesium 2.7 H Total Bilirubin 1.0 AST 21 Alkaline Phosphatase 99 C-Reactive Protein < 5.0 Total Protein 7.5 Albumin 4.2 Lipase 101.4 TSH 0.95 Impressions: Chest X-Ray 03/30/20 16:03 IMPRESSION: Stable radiographic appearance of the chest demonstrating midline surgical changes and chronic interstitial lung disease. No discrete radiographic evidence of acute cardiopulmonary abnormality. Assessment and Plan - Diagnosis (1) Back pain Qualifiers: Back pain location: low back pain Chronicity: acute Back pain laterality: midline Sciatica presence: unspecified whether sciatica present Qualified Code(s): M54.5 - Low back pain Is this a current diagnosis for this admission?: Yes (2) Hyperkalemia Is this a current diagnosis for this admission?: Yes (3) Chronic kidney disease, stage III (moderate) Is this a current diagnosis for this admission?: Yes - Plan Summary Summary: Patient has been evaluated for his back pain on his recent very brief admission during which they obtained a lumbar MRI which showed findings consistent with arthritis of the lumbar spine but no cord compression and no infectious changes. Also has paraspinal muscle tenderness likely has some paraspinal muscle strain. I recommended patient going to rehab given his ambulatory dysfunction but he adamantly refuses to go to rehab and states that he came here for pain medication because he could not get his pain meds on discharge and after which we can call him his [id number] to bring her truck to take him home but he absolutely does not want to go to rehab. I recommend PT/OT and pain medication for treatment of his arthritis pain. Notably was discharged with topical NSAIDs prescription. Avoid oral/systemic N SAIDs given renal function. He does not meet criteria for acute kidney failure as his baseline creatinine is about 1.9-2 and his creatinine is only currently 2.2. His hyperkalemia is minimal and I have reviewed his EKG which shows no EKG changes from hyperkalemia. Encourage hydration. I will sign off. Patient does not meet criteria for admission and moreover has completely declined placement at rehab. Consult social work for help with adaptive devices. - Time Time Spent with patient: 25-34 minutes Anticipated Discharge Disposition: as per er provider Anticipated Discharge Timeframe: within 24 hours
[2020-03-30 19:07] LABS: APPEARANCE,URINE SLIGHTLY-CLOUDY; BILIRUBIN,URINE NEGATIVE (NEGATIVE); COLOR,URINE YELLOW; GLUCOSE, URINE NEGATIVE (NEGATIVE); KETONES,URINE TRACE mg/dL (NEGATIVE); LEUKOCYTE ESTERASE,URINE NEGATIVE (NEGATIVE); NITRITE,URINE NEGATIVE (NEGATIVE); PROTEIN,URINE 30 mg/dL (NEGATIVE); URINE SPECIFIC GRAVITY 1.023; UROBILINOGEN,URINE NEGATIVE mg/dL (<2.0)
[2020-03-30 23:11] VITALS: BP 142/80
--- NOTE | 2020-04-01 02:57 | EKG REPORT ---
SEVERITY:- ABNORMAL ECG - SINUS RHYTHM LAD, CONSIDER LEFT ANTERIOR FASCICULAR BLOCK LEFT VENTRICULAR HYPERTROPHY CONSIDER ANTERIOR INFARCT : Confirmed by: Robbie Almonte MD 01-Apr-2020 02:56:51
== END 2020-03-30 23:16 | disposition home or self-care (01) ==
LOC: ER 15:28
DX: I12.9 Hypertensive chronic kidney disease with stage 1 through stage 4 chronic kidney disease, or unspecified chronic kidney disease (principal); E11.22 Type 2 diabetes mellitus with diabetic chronic kidney disease; N18.3 Chronic kidney disease, stage 3 (moderate); M54.5 Low back pain; E87.5 Hyperkalemia; M47.817 Spondylosis without myelopathy or radiculopathy, lumbosacral region; M54.9 Dorsalgia, unspecified; R11.0 Nausea; R63.0 Anorexia; R39.198 Other difficulties with micturition; W19.XXXD Unspecified fall, subsequent encounter; I25.2 Old myocardial infarction; Z79.82 Long term (current) use of aspirin
CPT/HCPCS: 99285; 96360; 36415; 83690; 83735; 84443; 85025; 86140; 80053; 81001; 71045; 93005; 93010; J7030; 99284

== ENCOUNTER 2020-04-13 23:17 | Inpatient (IN) | payer MEDICARE, OTHER ==
[2020-04-14] MEDS ORDERED: ONDANSETRON HCL INJ/PF 4 MG/2 ML SDV IV ONE (00:02)
[2020-04-14] MEDS ORDERED: HYDROMORPHONE HCL INJ/PF 2 MG/ML AMPULE IV ONE (00:02)
[2020-04-14] MEDS ORDERED: NORMAL SALINE 1000 ML 1,000 ML IV ONE ×2 (00:03→13:00)
[2020-04-14 00:30] LABS: HEMATOCRIT 54.4 % (37.9-51.0); HEMOGLOBIN 17.9 g/dL (13.5-17.0); MEAN CORPUSCULAR HEMOGLOBIN 29.8 pg (27.0-33.4); MEAN CORPUSCULAR VOLUME 90 fl (80-97); PLATELET COUNT 271 10^3/uL (150-450); RED BLOOD COUNT 6.01 10^6/uL (4.35-5.55); RED CELL DISTRIBUTION WIDTH 14.4 % (11.5-14.0); WHITE BLOOD COUNT 24.3 10^3/uL (4.0-10.5)
[2020-04-14 00:46] LABS: ALBUMIN 4.7 g/dL (3.5-5.0); ALKALINE PHOSPHATASE 104 U/L (38-126); ASPARTATE AMINO TRANSFERASE 33 U/L (17-59); BILIRUBIN,DIRECT 0.8 mg/dL (0.0-0.4); BILIRUBIN,TOTAL 2.3 mg/dL (0.2-1.3); BLOOD UREA NITROGEN 28 mg/dL (7-20); CALCIUM 9.9 mg/dL (8.4-10.2); GLUCOSE 228 mg/dL (75-110); POTASSIUM 5.2 mmol/L (3.6-5.0); TOTAL PROTEIN 8.9 g/dL (6.3-8.2)
--- NOTE | 2020-04-14 00:47 | ER Document Report ---
ED General - General Chief Complaint: Flank Pain Stated Complaint: RIGHT FLANK PAIN Time Seen by Provider: 04/13/20 23:48 Primary Care Provider: PEDRO PABLO SHETH PA-C [Primary Care Provider] - Follow up as needed TRAVEL OUTSIDE OF THE [place] IN LAST 30 DAYS: No - HPI Context: This is a 89-year-old male presenting via EMS with a chief complaint of right flank pain. Patient states that the pain is been going on for 2 days. Patient has an extensive medical history including prior CABG hyperlipidemia type 2 diabetes colon cancer status post colectomy in the with a ileostomy, questionable history of a brain tumor, BPH and a history of chronic back pain. Patient states that he did fall backwards at home approximately 10 days ago patient describes to the right flank pain as severe, rates it as a 5 out of 5, states that it is sharp, states that it is worse with deep breath and with touch. Patient states the pain is slightly relieved with Tylenol. Patient denies fever, chills, loss of sense of taste or smell, positive COVID infection history, known exposure to persons positive for COVID 19 or persons under investigation for COVID 19. Patient denies dysuria. Patient denies chest pain. Patient denies shortness of breath. Associated symptoms: Other - See HPI Exacerbated by: Other - See HPI Relieved by: Other - See HPI - Related Data Allergies/Adverse Reactions: No Known Allergies Allergy (Verified 03/30/20 16:01) Past Medical History - General Information source: Patient, Emergency Med Personnel - Social History Smoking Status: Never Smoker Chew tobacco use (# tins/day): No Frequency of alcohol use: None Drug Abuse: None Family History: Reviewed & Not Pertinent Patient has homicidal ideation: No - Past Medical History Cardiac Medical History: Reports: Hx Heart Attack, Hx Hypercholesterolemia, Hx Hypertension Endocrine Medical History: Reports: Hx Diabetes Mellitus Type 2 - Not on medication. Denies: Hx Hyperthyroidism Renal/ Medical History: Reports: Hx Benign Prostatic Hyperplasia, Hx Renal Insufficiency Malignancy Medical History: Reports Hx Colorectal Cancer Musculoskeletal Medical History: Reports Hx Gout Psychiatric Medical History: Denies: Hx Depression Past Surgical History: Reports: Hx Bowel Surgery - iliostomy, Hx Cardiac Surgery - CABG x5, Hx Coronary Artery Bypass Graft, Hx Ileostomy, Hx Neurologic Surgery - tumor removed, Other - Brain surgery? - Immunizations Hx Diphtheria, Pertussis, Tetanus Vaccination: - unknown Review of Systems - Review of Systems Constitutional: No symptoms reported EENT: No symptoms reported Cardiovascular: No symptoms reported Respiratory: No symptoms reported Gastrointestinal: No symptoms reported Genitourinary: Flank pain Male Genitourinary: No symptoms reported Musculoskeletal: No symptoms reported Skin: No symptoms reported Hematologic/Lymphatic: No symptoms reported Neurological/Psychological: No symptoms reported -: Yes All other systems reviewed and negative Physical Exam - Vital signs Vitals: Temp Pulse Resp BP Pulse Ox 97.7 F 117 H 14 71/60 L 95 04/13/20 23:33 04/13/20 23:33 04/13/20 23:33 04/13/20 23:33 04/13/20 23:33 - Notes Notes: CONSTITUTIONAL [Vital signs reviewed, Patient appears uncomfortable, awake and alert. Patient appears frail.] HEAD [Atraumatic, Normocephalic.] EYES [Eyes are normal to inspection, No discharge from eyes, Extraocular muscles intact, Sclera are normal, Conjunctiva are normal.] ENT Mucous membranes are dry. No obvious trauma to the patient's oropharynx is seen NECK [Normal ROM, No jugular venous distention, No meningeal signs, no carotid bruit.] RESPIRATORY CHEST [Chest is tender when right lateral rib cage is palpated, patient is tachypneic, patient has some rhonchi noted bilateral bases no respiratory distress.] CARDIOVASCULAR [Tachycardia, No murmurs, Normal S1 S2, No rub, No gallop.] ABDOMEN [Abdomen is tender along right lateral border, No pulsatile masses, No other masses, Bowel sounds normal, No distension, No peritoneal signs, No hernias. Ostomy bag is present and filled with green liquid stool] BACK Right flank is tender to palpation in the region of the rib cage. No obvious deformity, crepitus, emphysema, ecchymosis noted] UPPER EXTREMITY [Inspection normal, No cyanosis, No clubbing, No edema, 2+ radial pulses.] LOWER EXTREMITY [Inspection normal, No cyanosis, No clubbing, No edema, No calf tenderness, 2+ femoral pulses.] NEURO [Speech is slow but patient seems to answer questions appropriately. Patient seems hard of hearing.] SKIN [Skin is warm, Skin is dry, Skin is pale.] LYMPHATIC [No adenopathy in neck.] PSYCHIATRIC [Normal affect. ] Course - Vital Signs Vital signs: Temp Pulse Resp BP Pulse Ox 97.7 F 117 H 14 71/60 L 95 04/13/20 23:34 04/13/20 23:33 04/13/20 23:33 04/13/20 23:33 04/13/20 23:33 - Laboratory Result Diagrams: 04/14/20 00:03 04/14/20 00:03 Laboratory results interpreted by me: 04/14/20 04/14/20 04/14/20 00:03 00:03 00:15 WBC 24.3 H RBC 6.01 H Hgb 17.9 H Hct 54.4 H RDW 14.4 H Seg Neuts % (Manual) 90 H Band Neutrophils % 1 L Lymphocytes % (Manual) 6 L Abs Neuts (Manual) 22.1 H Potassium 5.2 H Chloride 97 L Anion Gap 21 H BUN 28 H Creatinine 2.48 H Est GFR ( Amer) 30 L Est GFR (MDRD) Non-Af 25 L Glucose 228 H Lactic Acid 8.1 H Total Bilirubin 2.3 H Direct Bilirubin 0.8 H Total Protein 8.9 H - EKG Interpretation by Me Additional EKG results interpreted by me: 04/14/20 00:47 EKG obtained on 04/14/2020 at 00 34 hours was interpreted by this MD. Findings: Sinus tachycardia, P waves are present, rate is 127, QRS appears normal, QTC is 442 there are no obvious patterns of ST segment elevation or depression present to suggest acute myocardial ischemia or infarction. When compared with prior EKG from 03/30/2020, other than the rate on the prior EKG being 97 the overall appearance and gross morphology compar comparing the 2 EKG shows no remarkable changes. Impression: Sinus tachycardia with nonspecific ST segments. - Consults DR. MARTINEZ, RADIOLOGY Time consulted: 01:05 - Dr. Martinez informed this MD that the patient's CT was significant for free air and free fluid in the right upper quadrant Reason for consultation: 04/14/20 01:[address] Cooney, surgery Time consulted: 01:10 - Dr. Cooney came to see the patient in the emergency department. He is currently placing a triple-lumen with patient. He stated that he wants the patient to be admitted medically with surgical consult. Reason for consultation: 04/14/20 01:59 Free air and free fluid in abdomen Consulted provider: will come to ER Dr. Rodriguez Time consulted: 01:45 - Dr. Rodriguez requested consulting with [facility] given how critically ill pt is and will need to be in ICU post surgery Reason for consultation: 04/14/20 02:01 medical admission with surgical consult Mane Dotson NP, [facility] Time consulted: 01:56 - JENA Dotson stated she would see pt in ED Reason for consultation: 04/14/20 02:03 medicare care for critically ill patient Critical Care Note - Critical Care Note Total time excluding time spent on procedures (mins): 120 - consults, resuscitation, medical management Discharge - Discharge Clinical Impression: Intra-abdominal free air of unknown etiology Sepsis Qualifiers: Sepsis type: sepsis due to unspecified organism Sepsis acute organ dysfunction status: unspecified Qualified Code(s): A41.9 - Sepsis, unspecified organism Condition: Critical Disposition: ADMITTED INPATIENT Admitting Provider: Suzy [facility] Admitted: ICU Referrals: PEDRO PABLO SHETH PA-C [Primary Care Provider] - Follow up as needed
[2020-04-14 00:51] LABS: CARBON DIOXIDE 22 mmol/L (22-30); CHLORIDE 97 mmol/L (98-107)
[2020-04-14 00:57] LABS: ANION GAP 21 (5-19)
[2020-04-14 01:00] LABS: ABSOLUTE LYMPHOCYTES# (MANUAL) 1.5 10^3/uL (0.5-4.7); ABSOLUTE MONOCYTES # (MANUAL) 0.7 10^3/uL (0.1-1.4); BAND NEUTROPHILS % (MANUAL) 1 % (3-5); BASOPHILS % (MANUAL) 0 % (0-2); EOSINOPHILS % (MANUAL) 0 % (0-6); LYMPHOCYTES % (MANUAL) 6 % (13-45); MONOCYTES % (MANUAL) 3 % (3-13); SEGMENTED NEUTROPHILS % (MAN) 90 % (42-78); TOTAL CELLS COUNTED 100
[2020-04-14 01:01] LABS: ANISOCYTOSIS SLIGHT; OVALOCYTES SLIGHT; PLATELET COMMENT ADEQUATE; POIKILOCYTOSIS SLIGHT; SCHISTOCYTES SLIGHT; TOXIC GRANULATION SLIGHT
--- NOTE | 2020-04-14 01:15 | RADIOLOGY REPORT (SQ) ---
EXAM DESCRIPTION: [facility]: CT CHEST WITHOUT IV CONTRAST, CT ABDOMEN PELVIS WITHOUT IV CONTRAST CLINICAL HISTORY: 89 years Male; blunt trauma from fall, right chest wall; TECHNIQUE: Trauma CT chest, abdomen, pelvis protocol without contrast All CT scans at this facility use dose modulation, iterative reconstruction, and/or weight based dosing when appropriate to reduce radiation dose to as low as reasonably achievable. COMPARISON: None FINDINGS: Chest: Lungs: Extensive chronic interstitial fibrosis bilaterally. There are areas of honeycombing in the lower lobes and scattered bullous changes bilaterally. No pneumothorax or pleural effusion. Mediastinum: Sternal wires are noted. No mediastinal hematoma. No pericardial effusion. Vascular: No secondary evidence for vascular injury, although evaluation limited due to lack of contrast. Bones: Bony structures are intact. Abdomen: There is a large amount of pneumoperitoneum in the upper abdomen anterior to the liver. Addition, there is free fluid over the anterior surface of the liver, to 2.4 cm thick. The fluid is low to intermediate density. Stomach: Nondistended. The free air abuts the stomach. There is mild fluid/edema adjacent to the gastric antrum and proximal duodenum. Liver:No focal lesions. No intrahepatic ductal distention. Gallbladder: Hyperdense calculi Pancreas:Within normal limits Spleen:Within normal limits Right kidney:No hydronephrosis. No focal lesion. Left kidney: Atrophic. No hydronephrosis. Adrenal glands:Within normal limits Vascular structures:No retroperitoneal hematoma. Pelvis: No hemoperitoneum or free intraperitoneal air. Small bowel: Nondistended. No mesenteric hematoma. Colon:Within normal limits. No pelvic mass or adenopathy. No pelvic fractures. Note that evaluation of the vascular structures and solid organs in the setting of trauma is limited due to lack of intravenous contrast. THIS REPORT CONTAINS FINDINGS THAT MAY BE CRITICAL TO PATIENT CARE: The findings were verbally discussed via telephone conference with ALEKSANDR DUNBAR at 12:11 AM CDT on 04/14/2020 . IMPRESSION: 1. Significant pneumoperitoneum as well as fluid, mostly in the right upper quadrant. The most likely etiology is perforation of the distal stomach or proximal duodenum. 2. Cholelithiasis 3. Emphysema with chronic interstitial fibrosis. 4. Previous sternotomy. 5. Left renal atrophy. 6. No acute fractures.
[2020-04-14] MEDS ORDERED: PIPERACILLIN/TAZOBACTAM 3.375 GM VIAL IV ONE (01:18)
[2020-04-14] MEDS ORDERED: LIDOCAINE 2% INJ-PF (20 MG/ML) 10 ML AMPUL ONE (01:43)
[2020-04-14] MEDS ORDERED: ONDANSETRON HCL INJ/PF 4 MG/2 ML SDV IV PRN (02:21)
--- NOTE | 2020-04-14 02:27 | Operative Report ---
Operative Report DATE OF SURGERY: 04/14/20 PREOPERATIVE DIAGNOSIS: 1. Septic shock. 2. Acute abdomen POSTOPERATIVE DIAGNOSIS: Same OPERATION: 1. Insertion of Glass catheter. 2. Ultrasound directed insertion of right common femoral venous triple-lumen catheter SURGEON: JAYNE MOONEY ANESTHESIA: Local TISSUE REMOVED OR ALTERED: None COMPLICATIONS: None ESTIMATED BLOOD LOSS: Minimal INTRAOPERATIVE FINDINGS: See below PROCEDURE: Summary of procedures 1. Patient was examined and treated in room 9 in the emergency department. A Glass catheter was now inserted. The glans of the penis was prepped with Betadine, lidocaine gel placed in the urethra, and a 16 [place]ic Glass catheter w as inserted, balloon insufflated, and catheter snugged into position. There was a minimal amount of concentrated urine released. The catheter was hooked to a collection chamber 2. The right groin was shaved, prepped and draped sterile fashion. Right groin anesthetized 1% plain lidocaine, triple-lumen central venous access catheter was threaded into the right femoral vein using ultrasound guidance real-time. There was excellent blood flow through all 3 lm. Catheter was flushed with heparinized saline secured the skin with 2-0 silk, Biopatch. Of note the, femoral vein was collapsed, and the venous blood was very deoxygenated. The patient tolerated the above procedures well. Care of the patient was now resumed by the intensive care team.
[2020-04-14] MEDS ORDERED: NORMAL SALINE INJ/PF 0.9% 10 ML SDV IV PRN (02:28)
--- NOTE | 2020-04-14 02:39 | PDOC CONSULTATION ---
Consultation Consult Date: 04/14/20 Attending physician:: ALEKSANDR DUNBAR IV Provider Consulted: JAYNE COONEY Consult reason:: Acute abdomen History of Present Illness Admission Date/PCP: PEDRO PABLO SHETH PA-C History of Present Illness: JEIMY EDWARDS is a 89 year old male Presents emergency department via ground rescue complaining of right upper quadrant pain. Patient was seen in the emergency department on March 19April 02 for right upper quadrant pain following fall from standing. Please see hospital record for the 03 19 admission. At that time patient had imaging studies of his spine and chest including a CT scan and MRI which showed arthritis no fracture, and no fluid or air in the abdomen. Tonight patient was found to have peritoneal signs, leukocytosis 24,000, left shift, CT scan findings consistent with large pocket of air and fluid in the right upper quadrant surrounding and anterior to the liver. Surgery was consulted. Patient was in septic shock with tachycardia, and hypotension. Dr. Cooney placed a Glass catheter and central line at bedside the emergency department and the patient was admitted to the intensive care unit for further care. Patient lives by himself, has no family with him. He has a history of chronic renal disease does not have a local medical doctor. He is in the emergency department by himself. COVID status unknown. He is a full code at this time. Past Medical History Cardiac Medical History: Reports: Myocardial Infarction, Hyperlipidema, Hypertension Endocrine Medical History: Reports: Diabetes Mellitus Type 2 - Not on medication Denies: Hyperthyroidism Malignancy Medical History: Reports: Colorectal Cancer Musculoskeltal Medical History: Reports: Gout Psychiatric Medical History: Denies: Depression Past Surgical History Past Surgical History: Remote history of CABG, exploratory surgery and what appears to be a left colostomy rather than an ileostomy Past Surgical History: Reports: Coronary Artery Bypass Graft, Ileostomy, Other - Brain surgery? Social History Smoking Status: Never Smoker Electronic Cigarette use?: No Frequency of Alcohol Use: None Hx Recreational Drug Use: No Drugs: None Hx Prescription Drug Abuse: No Family History Family History: Reviewed & Not Pertinent Parental Family History Reviewed: No Children Family History Reviewed: NA Sibling(s) Family History Reviewed.: NA Medication/Allergy Home Medications: Cetirizine HCl [Zyrtec] 10 mg PO DAILY 11/04/14 Simvastatin 40 mg PO QHS 11/04/14 Tamsulosin HCl [Flomax] 0.4 mg PO DAILY 11/04/14 Meclizine HCl 25 mg PO TID 11/18/14 Cholestyramine/Aspartame [Questran Light 4 gm Packet] 4 gm PO MEALS #60 packet 11/22/14 Ondansetron HCl [Zofran] 4 mg PO TID 03/19/20 Pantoprazole Sodium [Protonix [address] Tablet] 40 mg PO DAILY 03/19/20 Acetaminophen [Tylenol 325 mg Tablet] 650 mg PO Q4HP PRN 30 Days #30 tablet 03/21/20 Aspirin [Aspirin 81 mg Chewable Tablet] 81 mg PO DAILY tab.chew 03/21/20 Diclofenac Sodium/Lidocaine [Lidovix] 1 each MC RTQ8HP PRN 30 Days #10 combo..pkg 03/21/20 Hydrocodone/Acetaminophen [[place] 5-325 mg Tablet] 1 tab PO Q8HP PRN 5 Days #15 tablet 03/21/20 Sennosides/Docusate 8.6-50 mg [Senna Plus Tablet] 2 each PO QHS 5 Days #14 tablet 03/21/20 Allergies/Adverse Reactions: No Known Allergies Allergy (Verified 03/30/20 16:01) Review of Systems ROS unobtainable: Due to mental status, Other - Patient shivering, in septic shock and unable to articulate complete HPI Physical Exam Vital Signs: Temp Pulse Resp BP Pulse Ox 97.7 F 117 H 14 71/60 L 95 04/13/20 23:34 04/13/20 23:33 04/13/20 23:33 04/13/20 23:33 04/13/20 23:33 Intake & Output 04/12/20 04/13/20 04/14/20 06:59 06:59 06:59 Intake Total 1000 Balance 1000 General appearance: PRESENT: cooperative, other - Distress Head exam: PRESENT: atraumatic Eye exam: PRESENT: other - Eyeglasses on, EOMs intact Throat exam: PRESENT: other - Extremely dry Respiratory exam: PRESENT: other - Tachypnea, low tidal volumes Pulses: PRESENT: normal carotid pulses Breast: PRESENT: Normal GI/Abdominal exam: PRESENT: other - Tense abdomen with guarding. Ostomy with stool in the bag. Extremities exam: PRESENT: other - No edema Neurological exam: PRESENT: alert, awake, oriented to place Psychiatric exam: PRESENT: other - Anxious Skin exam: PRESENT: dry Results Laboratory Results: 04/14/20 00:03 04/14/20 00:03 04/14/20 04/14/20 04/14/20 00:03 00:03 00:15 WBC 24.3 H RBC 6.01 H Hgb 17.9 H Hct 54.4 H MCV 90 MCH 29.8 MCHC 33.0 RDW 14.4 H Plt Count 271 Seg Neutrophils % Not Reportable Sodium 139.9 Potassium 5.2 H Chloride 97 L Carbon Dioxide 22 Anion Gap 21 H BUN 28 H Creatinine 2.48 H Est GFR ( Amer) 30 L Glucose 228 H Lactic Acid 8.1 H Calcium 9.9 Total Bilirubin 2.3 H AST 33 Alkaline Phosphatase 104 Total Protein 8.9 H Albumin 4.7 Lipase 63.7 Impressions: Chest CT 04/14/20 00:03 IMPRESSION: 1. Significant pneumoperitoneum as well as fluid, mostly in the right upper quadrant. The most likely etiology is perforation of the distal stomach or proximal duodenum. 2. Cholelithiasis 3. Emphysema with chronic interstitial fibrosis. 4. Previous sternotomy. 5. Left renal atrophy. 6. No acute fractures. Abdomen/Pelvis CT 04/14/20 00:04 IMPRESSION: 1. Significant pneumoperitoneum as well as fluid, mostly in the right upper quadrant. The most likely etiology is perforation of the distal stomach or proximal duodenum. 2. Cholelithiasis 3. Emphysema with chronic interstitial fibrosis. 4. Previous sternotomy. 5. Left renal atrophy. 6. No acute fractures. Assessment & Plan - Diagnosis (1) Hypovolemic shock Is this a current diagnosis for this admission?: Yes (2) Colostomy care Is this a current diagnosis for this admission?: Yes (3) Intra-abdominal free air of unknown etiology Is this a current diagnosis for this admission?: Yes Plan: Impression: Acute abdomen, peritoneal signs, pneumoperitoneum, septic shock in 89-year-old with multiple comorbidities; prognosis extremely poor. Allegedly full CODE STATUS; COVID status unknown; No family available for collaboration or discussion Plan: 1. Admit to intensive care unit, continue IV fluids, intravenous antibiotics; patient will go into respiratory decompensation and decisions will need to be made regarding intubation status 2. I have chosen to not perform exploratory laparotomy on this patient at 2:30 in the morning until we provide the above maneuvers, and side on level of aggressiveness for this patient who has an extremely poor prognosis regardless of level of aggressiveness of care. Alternative consideration is to place a ultrasound directed paracentesis tube in the right upper quadrant for decompression and palliation. 3. I have discussed the above with the nurse practitioner in the intensive care unit Mane Magaftab who is in agreement with the above plan (4) Sepsis Qualifiers: Sepsis type: sepsis due to unspecified organism Sepsis acute organ dysfunction status: unspecified Qualified Code(s): A41.9 - Sepsis, unspecified organism Is this a current diagnosis for this admission?: Yes (5) BPH (benign prostatic hyperplasia) Qualifiers: Lower urinary tract symptom presence: symptoms absent Qualified Code(s): N40.0 - Benign prostatic hyperplasia without lower urinary tract symptoms Is this a current diagnosis for this admission?: Yes (6) Chronic kidney disease, stage III (moderate) Is this a current diagnosis for this admission?: Yes (7) Status post coronary artery bypass graft Is this a current diagnosis for this admission?: Yes - Time Time Spent: 50 to 70 Minutes Smoking Cessation Education: over 10 minutes Medications reviewed and adjusted accordingly: Yes Anticipated discharge: Home - Inpatient Certification Based on my medical assessment, after consideration of the patient's comorbidities, presenting symptoms, or acuity I expect that the services needed warrant INPATIENT care.: Yes I certify that my determination is in accordance with my understanding of Medicare's requirements for reasonable and necessary INPATIENT services [42 CFR 412.3e].: Yes Medical Necessity: Need For IV Fluids, Need for Pain Control, Need for IV Antibiotics, Need for Surgery
[2020-04-14 03:01] LABS: APPEARANCE,URINE CLEAR; BILIRUBIN,URINE NEGATIVE (NEGATIVE); COLOR,URINE YELLOW; GLUCOSE, URINE NEGATIVE (NEGATIVE); KETONES,URINE TRACE mg/dL (NEGATIVE); LEUKOCYTE ESTERASE,URINE NEGATIVE (NEGATIVE); NITRITE,URINE NEGATIVE (NEGATIVE); PROTEIN,URINE 100 mg/dL (NEGATIVE); URINE SPECIFIC GRAVITY 1.021; UROBILINOGEN,URINE NEGATIVE mg/dL (<2.0)
[2020-04-14] MEDS: RINGERS SOLUTION,LACTATED 1,000 ML IV PRN ×2 (04:19→16:41)
--- NOTE | 2020-04-14 04:51 | CRITICAL CARE ADMISSION REPORT ---
HPI Date:: 04/14/20 Time:: 04:00 Reason for ICU Reason:: Pneumoperitoneum Admission Date/Time & PCP: Admission Date/Time: 04/14/20 03:09 Primary Care Provider: PEDRO PABLO SHETH PA-C HPI: JEIMY EDWARDS is a 89 year old male Presents emergency department via ground rescue complaining of right upper quadrant pain. Patient was seen in the emergency department on March 19April 02 for right upper quadrant pain following fall from standing. Please see hospital record for the 03 19 admission. At that time patient had imaging studies of his spine and chest including a CT scan and MRI which showed arthritis no fracture, and no fluid or air in the abdomen. Tonight patient was found to have peritoneal signs, leukocytosis 24,000, left shift, CT scan findings consistent with large pocket of air and fluid in the right upper quadrant surrounding and anterior to the liver. Surgery was consulted. Patient was in septic shock with tachycardia, and hypotension. Dr. Cooney placed a Glass catheter and central line at bedside the emergency department and the patient was admitted to the intensive care unit for further care. Patient lives by himself, has no family with him. He has a history of chronic renal disease does not have a local medical doctor. He is in the emergency department by himself. COVID status unknown. He is a full code at this time. - Diagnosis/Plan (1) Intra-abdominal free air of unknown etiology Is this a current diagnosis for this admission?: Yes Plan: Dr Flores following No plans for surgical intervention at this time, may place drainage tube today Volume resuscitate start Zosyn and flagyl (2) Sepsis Qualifiers: Sepsis type: sepsis due to unspecified organism Sepsis acute organ dysfunction status: unspecified Qualified Code(s): A41.9 - Sepsis, unspecified organism Is this a current diagnosis for this admission?: Yes Plan: Continue current abx volume resuscitate lactic acid q4 hrs (3) Chronic kidney disease, stage III (moderate) Is this a current diagnosis for this admission?: Yes Plan: Monitor BUN/Creat Renally dose abx Monitor lytes and replete as needed Monitor UOP/Glass Past Medical History Cardiac Medical History: Reports: Myocardial Infarction, Hyperlipidema, Hypertension Endocrine Medical History: Reports: Diabetes Mellitus Type 2 - Not on medication Denies: Hyperthyroidism Malignancy Medical History: Reports: Colorectal Cancer Musculoskeltal Medical History: Reports: Gout Psychiatric Medical History: Denies: Depression Past Surgical History Past Surgical History: Reports: Coronary Artery Bypass Graft, Ileostomy, Other - Brain surgery? Social/Family History - Social History Lives with: Spouse/Significant other Smoking Status: Never Smoker Frequency of Alcohol Use: None Hx Recreational Drug Use: No Drugs: None Hx Prescription Drug Abuse: No - Medication/Allergies Home Medications: Cetirizine HCl [Zyrtec] 10 mg PO DAILY 11/04/14 Simvastatin 40 mg PO QHS 11/04/14 Tamsulosin HCl [Flomax] 0.4 mg PO DAILY 11/04/14 Meclizine HCl 25 mg PO TID 11/18/14 Cholestyramine/Aspartame [Questran Light 4 gm Packet] 4 gm PO MEALS #60 packet 11/22/14 Ondansetron HCl [Zofran] 4 mg PO TID 03/19/20 Pantoprazole Sodium [Protonix [address] Tablet] 40 mg PO DAILY 03/19/20 Acetaminophen [Tylenol 325 mg Tablet] 650 mg PO Q4HP PRN 30 Days #30 tablet 03/21/20 Aspirin [Aspirin 81 mg Chewable Tablet] 81 mg PO DAILY tab.chew 03/21/20 Diclofenac Sodium/Lidocaine [Lidovix] 1 each MC RTQ8HP PRN 30 Days #10 combo..pkg 03/21/20 Hydrocodone/Acetaminophen [[place] 5-325 mg Tablet] 1 tab PO Q8HP PRN 5 Days #15 tablet 03/21/20 Sennosides/Docusate 8.6-50 mg [Senna Plus Tablet] 2 each PO QHS 5 Days #14 tablet 03/21/20 Allergies/Adverse Reactions: No Known Allergies Allergy (Verified 03/30/20 16:01) Review of Systems All systems: reviewed and no additional remarkable complaints except as stated Constitutional: PRESENT: chills, weight loss Gastrointestinal: PRESENT: abdominal pain, bloating, nausea Physical Exam Vital Signs: Temp Pulse Resp BP Pulse Ox 99.1 F 130 H 31 H 116/71 95 04/14/20 03:59 04/14/20 03:59 04/14/20 03:59 04/14/20 03:59 04/14/20 03:59 Intake & Output 04/12/20 04/13/20 04/14/20 06:59 06:59 06:59 Intake Total 1000 Balance 1000 Weight 51.6 kg Weight/Height Weight 51.6 kg Height 5 ft 4 in General appearance: PRESENT: mild distress Head exam: PRESENT: atraumatic, normocephalic Eye exam: PRESENT: PERRLA Mouth exam: PRESENT: dry mucosa, neck supple, tongue midline Neck exam: PRESENT: full ROM Respiratory exam: PRESENT: clear to auscultation sharmin Cardiovascular exam: PRESENT: +S1, +S2, tachycardia Pulses: PRESENT: normal radial pulses GI/Abdominal exam: PRESENT: diminished bowel sounds Extremities exam: PRESENT: full ROM Musculoskeletal exam: PRESENT: full ROM Neurological exam: PRESENT: alert, awake, oriented to person, oriented to place, oriented to time, oriented to situation Tubes/Lines: PRESENT: Central Line Laboratory/Radiographs Laboratory Results: 04/14/20 00:03 04/14/20 00:03 04/14/20 04/14/20 04/14/20 00:03 00:03 00:15 WBC 24.3 H RBC 6.01 H Hgb 17.9 H Hct 54.4 H MCV 90 MCH 29.8 MCHC 33.0 RDW 14.4 H Plt Count 271 Seg Neutrophils % Not Reportable Sodium 139.9 Potassium 5.2 H Chloride 97 L Carbon Dioxide 22 Anion Gap 21 H BUN 28 H Creatinine 2.48 H Est GFR ( Amer) 30 L Glucose 228 H Lactic Acid 8.1 H Calcium 9.9 Total Bilirubin 2.3 H AST 33 Alkaline Phosphatase 104 Total Protein 8.9 H Albumin 4.7 Lipase 63.7 Urine Color Urine Appearance Urine pH Ur Specific [place] Urine Protein Urine Glucose (UA) Urine Ketones Urine Blood Urine Nitrite Ur Leukocyte Esterase Urine WBC (Auto) Urine RBC (Auto) 04/14/20 02:27 WBC RBC Hgb Hct MCV MCH MCHC RDW Plt Count Seg Neutrophils % Sodium Potassium Chloride Carbon Dioxide Anion Gap BUN Creatinine Est GFR ( Amer) Glucose Lactic Acid Calcium Total Bilirubin AST Alkaline Phosphatase Total Protein Albumin Lipase Urine Color YELLOW Urine Appearance CLEAR Urine pH 5.0 Ur Specific [place] 1.021 Urine Protein 100 H Urine Glucose (UA) NEGATIVE Urine Ketones TRACE H Urine Blood SMALL H Urine Nitrite NEGATIVE Ur Leukocyte Esterase NEGATIVE Urine WBC (Auto) 2 Urine RBC (Auto) 1 Impressions: Chest CT 04/14/20 00:03 IMPRESSION: 1. Significant pneumoperitoneum as well as fluid, mostly in the right upper quadrant. The most likely etiology is perforation of the distal stomach or proximal duodenum. 2. Cholelithiasis 3. Emphysema with chronic interstitial fibrosis. 4. Previous sternotomy. 5. Left renal atrophy. 6. No acute fractures. Abdomen/Pelvis CT 04/14/20 00:04 IMPRESSION: 1. Significant pneumoperitoneum as well as fluid, mostly in the right upper quadrant. The most likely etiology is perforation of the distal stomach or proximal duodenum. 2. Cholelithiasis 3. Emphysema with chronic interstitial fibrosis. 4. Previous sternotomy. 5. Left renal atrophy. 6. No acute fractures. All labs, radiographs, diagnostic studies and EKGs were personally reviewed: Yes In addition, reports of radiographic and diagnostic studies were read: Yes Critical Time Critical Time (minutes): 70 -: The care of a critically ill patient is dynamic. This note represents a static moment in the admission process. Orders and treatments may be given simultaneously and urgently, and time is not customer counter representative of the treatment process. This patient requires Critical Care secondary to life threatening organ or limb dysfunction. Without Critical Care services, the patient is at risk for increased mortality and morbidity.
[2020-04-14] MEDS: METRONIDAZOLE 500 MG/NS RTU 500 MG/100 ML RTUPB IV SCH ×3 (05:27→21:50)
[2020-04-14] MEDS: HEPARIN SOD (PORCINE) 5,000 UNIT/ML 1 ML VIAL SUBCUT SCH ×3 (05:28→21:54)
[2020-04-14] MEDS ORDERED: GLUCAGON,HUMAN RECOMB 1 MG INJ IM PRN (05:33)
[2020-04-14] MEDS ORDERED: DEXTROSE 40% GEL 15 GM TUBE PO PRN ×2 (05:33)
[2020-04-14] MEDS ORDERED: DEXTROSE 50%-WATER 25 GM/50 ML DISP.SYRIN IV PRN ×2 (05:33)
[2020-04-14] MEDS: INSULIN REG, HUMAN 100 UNIT/ML 3 ML VIAL (PYX) SUBCUT SCH ×3 (06:01→17:43)
[2020-04-14] MEDS ORDERED: RINGERS SOLUTION,LACTATED 1,000 ML IV ONE (06:42)
[2020-04-14] MEDS ORDERED: PHENYLEPHRINE HCL INJ/PF 10 MG/1 ML SDV ONE (08:16)
[2020-04-14] MEDS: DEXTROSE 5%-WATER 250 ML with PHENYLEPHRINE HCL 40 MG IV PRN ×4 (08:20→21:45)
[2020-04-14 08:30] LABS: INTERNATIONAL RATION (INR) 1.28; PROTHROMBIN TIME 16.2 SEC (11.4-15.4)
[2020-04-14 08:31] LABS: PARTIAL THROMBOPLASTIN TIME 30.5 SEC (23.5-35.8)
[2020-04-14 08:33] LABS: ALBUMIN 2.6 g/dL (3.5-5.0); ALKALINE PHOSPHATASE 52 U/L (38-126); ANION GAP 16 (5-19); ASPARTATE AMINO TRANSFERASE 19 U/L (17-59); BILIRUBIN,DIRECT 0.7 mg/dL (0.0-0.4); BILIRUBIN,TOTAL 1.5 mg/dL (0.2-1.3); BLOOD UREA NITROGEN 30 mg/dL (7-20); CARBON DIOXIDE 20 mmol/L (22-30); CHLORIDE 105 mmol/L (98-107); GLUCOSE 159 mg/dL (75-110); POTASSIUM 4.5 mmol/L (3.6-5.0); TOTAL PROTEIN 5.2 g/dL (6.3-8.2)
[2020-04-14 08:57] LABS: HEMATOCRIT 43.3 % (37.9-51.0); MEAN CORPUSCULAR HEMOGLOBIN 29.7 pg (27.0-33.4); MEAN CORPUSCULAR HGB CONC 32.6 g/dL (32.0-36.0); MEAN CORPUSCULAR VOLUME 91 fl (80-97); PLATELET COUNT 192 10^3/uL (150-450); RED BLOOD COUNT 4.76 10^6/uL (4.35-5.55); RED CELL DISTRIBUTION WIDTH 14.7 % (11.5-14.0); WHITE BLOOD COUNT 19.7 10^3/uL (4.0-10.5)
[2020-04-14 09:05] LABS: HEMOGLOBIN 14.1 g/dL (13.5-17.0)
[2020-04-14 09:20] LABS: ABSOLUTE LYMPHOCYTES# (MANUAL) 0.2 10^3/uL (0.5-4.7); ABSOLUTE MONOCYTES # (MANUAL) 1.4 10^3/uL (0.1-1.4); BAND NEUTROPHILS % (MANUAL) 2 % (3-5); BASOPHILS % (MANUAL) 0 % (0-2); EOSINOPHILS % (MANUAL) 0 % (0-6); LYMPHOCYTES % (MANUAL) 1 % (13-45); MONOCYTES % (MANUAL) 7 % (3-13); SEGMENTED NEUTROPHILS % (MAN) 90 % (42-78); TOTAL CELLS COUNTED 100
[2020-04-14 09:21] LABS: ANISOCYTOSIS SLIGHT; PLATELET CLUMPS PRESENT; PLATELET COMMENT ADEQUATE; PLATELET LARGE PRESENT
[2020-04-14] MEDS ORDERED: HYDROMORPHONE HCL INJ/PF 2 MG/ML AMPULE IV PRN (09:50)
[2020-04-14] MEDS: HYDROMORPHONE HCL INJ/PF 2 MG/ML AMPULE IV PRN ×2 (10:02→17:41)
[2020-04-14] MEDS ORDERED: LIDOCAINE 1% INJ-PF (10 MG/ML) 30 ML SDV ONE (10:57)
--- NOTE | 2020-04-14 11:42 | PDOC PROGRESS REPORT ---
Subjective Progress Note for:: 04/14/20 Reason For Visit: PNEUMOPERITONEUM Patient now in the ICU, remains in a septic shock, with oliguria. Breathing more comfortably. Received some pain medication in anticipation of bedside procedure. Physical Exam Vital Signs: Temp Pulse Resp BP Pulse Ox 99.3 F 126 H 32 H 116/80 98 04/14/20 08:00 04/14/20 10:00 04/14/20 10:00 04/14/20 10:00 04/14/20 10:00 Intake & Output 04/13/20 04/14/20 04/15/20 06:59 06:59 06:59 Intake Total 1100 1028 Output Total 25 10 Balance 1075 1018 Weight 51.6 kg General appearance: PRESENT: other - Less distress compared to 6 hours ago Respiratory exam: PRESENT: other - Decreased tachypnea GI/Abdominal exam: PRESENT: other - Abdomen remains tender with guarding particularly in the right upper quadrant; colostomy putting out stool Results Laboratory Results: 04/14/20 07:55 04/14/20 07:55 04/14/20 04/14/20 04/14/20 00:03 00:03 00:15 WBC 24.3 H RBC 6.01 H Hgb 17.9 H Hct 54.4 H MCV 90 MCH 29.8 MCHC 33.0 RDW 14.4 H Plt Count 271 Seg Neutrophils % Not Reportable Sodium 139.9 Potassium 5.2 H Chloride 97 L Carbon Dioxide 22 Anion Gap 21 H BUN 28 H Creatinine 2.48 H Est GFR ( Amer) 30 L Glucose 228 H Lactic Acid 8.1 H Calcium 9.9 Phosphorus Magnesium Total Bilirubin 2.3 H AST 33 Alkaline Phosphatase 104 Total Protein 8.9 H Albumin 4.7 Lipase 63.7 Urine Color Urine Appearance Urine pH Ur Specific [place] Urine Protein Urine Glucose (UA) Urine Ketones Urine Blood Urine Nitrite Ur Leukocyte Esterase Urine WBC (Auto) Urine RBC (Auto) 04/14/20 04/14/20 04/14/20 02:27 04:30 07:55 WBC RBC Hgb Hct MCV MCH MCHC RDW Plt Count Seg Neutrophils % Sodium 141.0 Potassium 4.5 Chloride 105 Carbon Dioxide 20 L Anion Gap 16 BUN 30 H Creatinine 2.43 H Est GFR ( Amer) 31 L Glucose 159 H Lactic Acid 6.6 H Calcium 8.0 L Phosphorus 5.0 H Magnesium 1.9 Total Bilirubin 1.5 H AST 19 Alkaline Phosphatase 52 Total Protein 5.2 L Albumin 2.6 L Lipase Urine Color YELLOW Urine Appearance CLEAR Urine pH 5.0 Ur Specific [place] 1.021 Urine Protein 100 H Urine Glucose (UA) NEGATIVE Urine Ketones TRACE H Urine Blood SMALL H Urine Nitrite NEGATIVE Ur Leukocyte Esterase NEGATIVE Urine WBC (Auto) 2 Urine RBC (Auto) 1 04/14/20 07:55 WBC 19.7 H RBC 4.76 Hgb 14.1 D Hct 43.3 MCV 91 MCH 29.7 MCHC 32.6 RDW 14.7 H Plt Count 192 Seg Neutrophils % Not Reportable Sodium Potassium Chloride Carbon Dioxide Anion Gap BUN Creatinine Est GFR ( Amer) Glucose Lactic Acid Calcium Phosphorus Magnesium Total Bilirubin AST Alkaline Phosphatase Total Protein Albumin Lipase Urine Color Urine Appearance Urine pH Ur Specific [place] Urine Protein Urine Glucose (UA) Urine Ketones Urine Blood Urine Nitrite Ur Leukocyte Esterase Urine WBC (Auto) Urine RBC (Auto) Impressions: Chest CT 04/14/20 00:03 IMPRESSION: 1. Significant pneumoperitoneum as well as fluid, mostly in the right upper quadrant. The most likely etiology is perforation of the distal stomach or proximal duodenum. 2. Cholelithiasis 3. Emphysema with chronic interstitial fibrosis. 4. Previous sternotomy. 5. Left renal atrophy. 6. No acute fractures. Abdomen/Pelvis CT 04/14/20 00:04 IMPRESSION: 1. Significant pneumoperitoneum as well as fluid, mostly in the right upper quadrant. The most likely etiology is perforation of the distal stomach or proximal duodenum. 2. Cholelithiasis 3. Emphysema with chronic interstitial fibrosis. 4. Previous sternotomy. 5. Left renal atrophy. 6. No acute fractures. Assessment & Plan - Diagnosis (1) Hypovolemic shock Is this a current diagnosis for this admission?: Yes Plan: Impression: Interval stabilization of patient following fluids, antibiotics, Glass catheter insertion improvement in laboratory profile, however hemodynamics remain unstable. Intra-abdominal sepsis persists. Recommendations: 1. I spoken with patient's , Mary, who apparently has dementia, cognitive deficit following stroke. I subsequently spoke with patient's [id number] at length. I discussed my recommendations to not proceed with exploratory laparotomy, necessary surgery given patient's complex past medical history, multiple comorbidities, and likelihood of very poor prognosis. 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 2. I offered to perform bedside paracentesis, with drain placement for palliation, guidance of microbial therapy, and possible therapeutic effect, although no guarantees. Patient's [id number], Jasmina, in agreement to proceed. 3. Patient's overall prognosis remains poor. This was discussed with nursing staff, as well as box toe stitcher. We are holding off on intubation; I suggest pursuing a DNR status for 24 to 36 hours. (2) Colostomy care Is this a current diagnosis for this admission?: Yes (3) Intra-abdominal free air of unknown etiology Is this a current diagnosis for this admission?: Yes (4) Sepsis Qualifiers: Sepsis type: sepsis due to unspecified organism Sepsis acute organ dysfunction status: unspecified Qualified Code(s): A41.9 - Sepsis, unspecified organism Is this a current diagnosis for this admission?: Yes (5) BPH (benign prostatic hyperplasia) Qualifiers: Lower urinary tract symptom presence: symptoms absent Qualified Code(s): N40.0 - Benign prostatic hyperplasia without lower urinary tract symptoms Is this a current diagnosis for this admission?: Yes (6) Chronic kidney disease, stage III (moderate) Is this a current diagnosis for this admission?: Yes (7) Status post coronary artery bypass graft Is this a current diagnosis for this admission?: Yes - Time Time Spent: 50 to 70 Minutes Critical Time spent with patient: Less than 15 minutes Medications reviewed and adjusted accordingly: Yes Anticipated Discharge Disposition: Home with Hospice Anticipated Discharge Timeframe: TBD
--- NOTE | 2020-04-14 11:48 | Operative Report ---
Operative Report DATE OF SURGERY: 04/14/20 PREOPERATIVE DIAGNOSIS: 1. Septic shock. 2. Pneumoperitoneum with abdominal fluid right upper quadrant POSTOPERATIVE DIAGNOSIS: Same OPERATION: 1. Focused ultrasound of the right upper quadrant. 2. Ultrasound directed paracentesis, with 14 [place] Malecot catheter insertion SURGEON: JAYNE MOONEY ANESTHESIA: Local TISSUE REMOVED OR ALTERED: 500 cc of fluid right upper quadrant dark green- brown, [id number] COMPLICATIONS: None ESTIMATED BLOOD LOSS: Scant INTRAOPERATIVE FINDINGS: See below PROCEDURE: Patient was sedated with potted. Right upper quadrant abdomen exposed, prepped and draped sterile fashion. Consent provided by family via telephone Focused ultrasound the right upper quadrant revealed a pocket of fluid above the liver, and tracking into the free peritoneal space. Of note, viewed the CT scan of the abdomen and pelvis revealed distention of the upper quadrant cavity, elevating the right hemidiaphragm. Therefore a low subcostal approach was chosen so as to avoid penetration of the anterior pulmonary sulcus. Adjacent skin was prepped with Betadine and using the ultrasound as a guide, 1% lidocaine was injected in the subcutaneous tissues. I aspirated approximately 10 cc of [id number] murky, green-brown fluid. An opening was made the skin with a #15 blade, and micro hemostats used to open the tract. Using the trocar inserted into the 14 [place] Malecot catheter, the trocar catheter were advanced into the peritoneal cavity. The trocar was removed leaving the catheter in the peritoneal cavity . The drain was hooked to Glass bag, and catheter secured to the skin with 2-0 silk suture Biopatch and sterile dressing applied. Approximately 4 to 500 cc of fluid drained immediately. Patient tolerated procedure well. Plan: 1. Leave to straight drain; will order flushes every shift 2. Discussed above with patient's [id number] at length. 3. We will follow-up on cultures, Gram stain, sensitivity.
--- NOTE | 2020-04-14 13:34 | PDOC CRITICAL CARE PROG REPORT ---
General Date:: 04/14/20 ICU Day:: 1 Hospital Day:: 1 Resuscitation Status: Full Code Events in the past 12 to 24 Hours:: JEIMY EDWARDS is a 89 year old male Presents emergency department via ground rescue complaining of right upper quadrant pain. Patient was seen in the emergency department on March 19April 02 for right upper quadrant pain following fall from standing. Please see hospital record for the 03 19 admission. At that time patient had imaging studies of his spine and chest including a CT scan and MRI which showed arthrit is no fracture, and no fluid or air in the abdomen. Tonight patient was found to have peritoneal signs, leukocytosis 24,000, left shift, CT scan findings consistent with large pocket of air and fluid in the right upper quadrant surrounding and anterior to the liver. Surgery was consulted. Patient was in septic shock with tachycardia, and hypotension. Dr. Cooney placed a Glass catheter and central line at bedside the emergency department and the patient was admitted to the intensive care unit for further care. Patient lives by himself, has no family with him. He has a history of chronic renal disease does not have a local medical doctor. He is in the emergency department by himself. COVID status unknown. He is a full code at this time. 04/14 The patient remains in the ICU. he is awake and communicative Dr. Smith spoke with thepatient's about the patient's status and man agement. Dr. Smith explained that surgery would be fraught with risk in this patient. He explained to hsi that he favored palcing an intraabdominal catheter in the abdomen for palliation.The catheter was placed and 400-500 ccc dark brown fluid came out quickly. The material was sent for culture His blood pressure is running 117/70 on 40 mcg /min of Neosynephrine. His pain is reasonably well controlled. Respiratory startus is satisfactory. Reason for ICU Addmission:: Pneumoperitoneum Physical Exam Vital Signs: Temp Pulse Resp BP Pulse Ox 98.6 F 117 H 13 117/76 98 04/14/20 12:00 04/14/20 12:00 04/14/20 12:49 04/14/20 12:49 04/14/20 12:49 Intake & Output 09/26/20 09/27/20 09/28/20 06:59 06:59 06:59 Intake Total 1100 1063 Output Total 25 15 Balance 1075 1048 Weight 51.6 kg Weight/Height Weight 51.6 kg Height 5 ft 4 in General appearance: PRESENT: mild distress Head exam: PRESENT: atraumatic, normocephalic Eye exam: PRESENT: conjunctiva pink Neck exam: ABSENT: lymphadenopathy, thyromegaly Cardiovascular exam: PRESENT: RRR GI/Abdominal exam: PRESENT: tenderness Rectal exam: PRESENT: deferred Extremities exam: ABSENT: calf tenderness, joint swelling Neurological exam: PRESENT: alert, awake Skin exam: PRESENT: normal color Tubes/Lines: PRESENT: Central Line, Nasogastic Tube Laboratory/Radiographs Laboratory Results: 04/14/20 07:55 04/14/20 07:55 04/14/20 04/14/20 04/14/20 00:03 00:03 00:15 WBC 24.3 H RBC 6.01 H Hgb 17.9 H Hct 54.4 H MCV 90 MCH 29.8 MCHC 33.0 RDW 14.4 H Plt Count 271 Seg Neutrophils % Not Reportable Sodium 139.9 Potassium 5.2 H Chloride 97 L Carbon Dioxide 22 Anion Gap 21 H BUN 28 H Creatinine 2.48 H Est GFR ( Amer) 30 L Glucose 228 H Lactic Acid 8.1 H Calcium 9.9 Phosphorus Magnesium Total Bilirubin 2.3 H AST 33 Alkaline Phosphatase 104 Total Protein 8.9 H Albumin 4.7 Lipase 63.7 Urine Color Urine Appearance Urine pH Ur Specific [place] Urine Protein Urine Glucose (UA) Urine Ketones Urine Blood Urine Nitrite Ur Leukocyte Esterase Urine WBC (Auto) Urine RBC (Auto) 04/14/20 04/14/20 04/14/20 02:27 04:30 07:55 WBC RBC Hgb Hct MCV MCH MCHC RDW Plt Count Seg Neutrophils % Sodium 141.0 Potassium 4.5 Chloride 105 Carbon Dioxide 20 L Anion Gap 16 BUN 30 H Creatinine 2.43 H Est GFR ( Amer) 31 L Glucose 159 H Lactic Acid 6.6 H Calcium 8.0 L Phosphorus 5.0 H Magnesium 1.9 Total Bilirubin 1.5 H AST 19 Alkaline Phosphatase 52 Total Protein 5.2 L Albumin 2.6 L Lipase Urine Color YELLOW Urine Appearance CLEAR Urine pH 5.0 Ur Specific [place] 1.021 Urine Protein 100 H Urine Glucose (UA) NEGATIVE Urine Ketones TRACE H Urine Blood SMALL H Urine Nitrite NEGATIVE Ur Leukocyte Esterase NEGATIVE Urine WBC (Auto) 2 Urine RBC (Auto) 1 04/14/20 07:55 WBC 19.7 H RBC 4.76 Hgb 14.1 D Hct 43.3 MCV 91 MCH 29.7 MCHC 32.6 RDW 14.7 H Plt Count 192 Seg Neutrophils % Not Reportable Sodium Potassium Chloride Carbon Dioxide Anion Gap BUN Creatinine Est GFR ( Amer) Glucose Lactic Acid Calcium Phosphorus Magnesium Total Bilirubin AST Alkaline Phosphatase Total Protein Albumin Lipase Urine Color Urine Appearance Urine pH Ur Specific [place] Urine Protein Urine Glucose (UA) Urine Ketones Urine Blood Urine Nitrite Ur Leukocyte Esterase Urine WBC (Auto) Urine RBC (Auto) Impressions: Chest CT 04/14/20 00:03 IMPRESSION: 1. Significant pneumoperitoneum as well as fluid, mostly in the right upper quadrant. The most likely etiology is perforation of the distal stomach or proximal duodenum. 2. Cholelithiasis 3. Emphysema with chronic interstitial fibrosis. 4. Previous sternotomy. 5. Left renal atrophy. 6. No acute fractures. Abdomen/Pelvis CT 04/14/20 00:04 IMPRESSION: 1. Significant pneumoperitoneum as well as fluid, mostly in the right upper quadrant. The most likely etiology is perforation of the distal stomach or proximal duodenum. 2. Cholelithiasis 3. Emphysema with chronic interstitial fibrosis. 4. Previous sternotomy. 5. Left renal atrophy. 6. No acute fractures. Assessment and Plan - Diagnosis (1) Intra-abdominal free air of unknown etiology Is this a current diagnosis for this admission?: Yes Plan: It appears that based on his presentation that thepatient had a perforated viscus. Most likely in the stomach or early duodenum. It portends a poor prognosis. I have deferred to surgery on definitive management. (2) Septic shock Is this a current diagnosis for this admission?: Yes Plan: The patient becam hypotensive. He is getting IV fluids. He is being covered with Flagyl and Zosyn. Willl increase fluis to 150 cc/hr. Montior urine output, haert rate and Bp. (3) Acute on chronic renal failure Is this a current diagnosis for this admission?: Yes Plan: The patient has longstanding renal insufficiency. His GFR has vacillated between 25-35 latley. Itis now about 25. Given his current shock this is likely to get worse. The patient would be a poor dialyusis candidate as well. (4) Colostomy care Is this a current diagnosis for this admission?: Yes Critical Time Critical Time (minutes): 35 Level of Care: ICU -: 1. The care of a critical patient is a dynamic process. This note is a banking representative synopsis but static in nature. The timeframe for treatments given in order is not necessarily the actual time these treatments may have been done. 2. This patient requires critical care secondary to ongoing requirements for therapy not offered or safe outside the critical care environment. Transfer to a lower level of care will result in altered life or limb morbidity and mortality. 3. Multidisciplinary rounds completed. 4. ABCDE bundle addressed.
[2020-04-14] MEDS ORDERED: PIPERACILLIN/TAZOBACTAM 4.5 GM VIAL IV SCH (14:00)
[2020-04-14] MEDS: PIPERACILLIN SODIUM/TAZOBACTAM 4.5 GM in NORMAL SALINE 100 ML IV SCH (17:41)
--- NOTE | 2020-04-14 20:24 | EKG REPORT ---
SEVERITY:- ABNORMAL ECG - SINUS TACHYCARDIA LEFT ANTERIOR FASCICULAR BLOCK PROBABLE LEFT VENTRICULAR HYPERTROPHY CONSIDER ANTERIOR INFARCT : Confirmed by: Melvina Robledo MD 14-Apr-2020 20:24:20
[2020-04-14 20:38] LABS: HEMATOCRIT 41.7 % (37.9-51.0); HEMOGLOBIN 13.8 g/dL (13.5-17.0); MEAN CORPUSCULAR HEMOGLOBIN 29.9 pg (27.0-33.4); MEAN CORPUSCULAR HGB CONC 33.1 g/dL (32.0-36.0); MEAN CORPUSCULAR VOLUME 90 fl (80-97); PLATELET COUNT 183 10^3/uL (150-450); RED BLOOD COUNT 4.62 10^6/uL (4.35-5.55); RED CELL DISTRIBUTION WIDTH 14.8 % (11.5-14.0); WHITE BLOOD COUNT 21.4 10^3/uL (4.0-10.5)
[2020-04-14 20:46] LABS: ABSOLUTE LYMPHOCYTES# (MANUAL) 0.9 10^3/uL (0.5-4.7); ABSOLUTE MONOCYTES # (MANUAL) 1.1 10^3/uL (0.1-1.4); BAND NEUTROPHILS % (MANUAL) 4 % (3-5); BASOPHILS % (MANUAL) 0 % (0-2); EOSINOPHILS % (MANUAL) 0 % (0-6); LYMPHOCYTES % (MANUAL) 4 % (13-45); MONOCYTES % (MANUAL) 5 % (3-13); SEGMENTED NEUTROPHILS % (MAN) 87 % (42-78); TOTAL CELLS COUNTED 100
[2020-04-14 20:47] LABS: ANISOCYTOSIS SLIGHT; OVALOCYTES SLIGHT; PLATELET COMMENT ADEQUATE; POIKILOCYTOSIS SLIGHT; SCHISTOCYTES SLIGHT; TEAR DROP CELLS SLIGHT; TOXIC GRANULATION SLIGHT
[2020-04-14] MEDS ORDERED: HEPARIN SOD (PORCINE) 5,000 UNIT/ML 1 ML VIAL SUBCUT SCH (22:00)
[2020-04-15] MEDS: RINGERS SOLUTION,LACTATED 1,000 ML IV PRN ×4 (01:05→23:43)
[2020-04-15] MEDS: HYDROMORPHONE HCL INJ/PF 2 MG/ML AMPULE IV PRN ×2 (01:30→09:23)
[2020-04-15] MEDS: INSULIN REG, HUMAN 100 UNIT/ML 3 ML VIAL (PYX) SUBCUT SCH ×5 (02:26→23:47)
[2020-04-15] MEDS: PIPERACILLIN SODIUM/TAZOBACTAM 4.5 GM in NORMAL SALINE 100 ML IV SCH ×2 (05:58→18:12)
[2020-04-15] MEDS: HEPARIN SOD (PORCINE) 5,000 UNIT/ML 1 ML VIAL SUBCUT SCH ×3 (05:59→21:28)
[2020-04-15] MEDS: METRONIDAZOLE 500 MG/NS RTU 500 MG/100 ML RTUPB IV SCH ×3 (06:02→21:26)
[2020-04-15 06:31] LABS: HEMATOCRIT 39.9 % (37.9-51.0); HEMOGLOBIN 13.1 g/dL (13.5-17.0); MEAN CORPUSCULAR HEMOGLOBIN 29.7 pg (27.0-33.4); MEAN CORPUSCULAR HGB CONC 32.8 g/dL (32.0-36.0); MEAN CORPUSCULAR VOLUME 90 fl (80-97); PLATELET COUNT 153 10^3/uL (150-450); RED BLOOD COUNT 4.42 10^6/uL (4.35-5.55); RED CELL DISTRIBUTION WIDTH 14.9 % (11.5-14.0); WHITE BLOOD COUNT 20.9 10^3/uL (4.0-10.5)
[2020-04-15 06:41] LABS: ALBUMIN 2.1 g/dL (3.5-5.0); ALKALINE PHOSPHATASE 38 U/L (38-126); ANION GAP 8 (5-19); ASPARTATE AMINO TRANSFERASE 19 U/L (17-59); BILIRUBIN,DIRECT 0.8 mg/dL (0.0-0.4); BILIRUBIN,TOTAL 1.1 mg/dL (0.2-1.3); BLOOD UREA NITROGEN 45 mg/dL (7-20); CALCIUM 7.5 mg/dL (8.4-10.2); CARBON DIOXIDE 23 mmol/L (22-30); CHLORIDE 108 mmol/L (98-107); GLUCOSE 107 mg/dL (75-110); PHOSPHORUS 4.4 mg/dL (2.5-4.5); TOTAL PROTEIN 4.4 g/dL (6.3-8.2)
[2020-04-15 07:01] LABS: ABSOLUTE LYMPHOCYTES# (MANUAL) 1.9 10^3/uL (0.5-4.7); ABSOLUTE MONOCYTES # (MANUAL) 1.7 10^3/uL (0.1-1.4); BAND NEUTROPHILS % (MANUAL) 7 % (3-5); BASOPHILS % (MANUAL) 0 % (0-2); EOSINOPHILS % (MANUAL) 0 % (0-6); LYMPHOCYTES % (MANUAL) 8 % (13-45); METAMYELOCYTES % (MANUAL) 2 % (0-1); MONOCYTES % (MANUAL) 8 % (3-13); SEGMENTED NEUTROPHILS % (MAN) 74 % (42-78); TOTAL CELLS COUNTED 100
[2020-04-15 07:02] LABS: BURR CELLS 1+; PLATELET COMMENT ADEQUATE; POIKILOCYTOSIS 1+
--- NOTE | 2020-04-15 08:11 | PDOC CRITICAL CARE PROG REPORT ---
General Date:: 04/15/20 ICU Day:: 2 Hospital Day:: 2 Resuscitation Status: Full Code Events in the past 12 to 24 Hours:: Free intraperitoeal air treated non-operatively with a percutaneous drain. Review of systems relevant to events:: GI, CV, Neurological. Reason for ICU Addmission:: Pneumoperitoneum, need for phenylephrine. - Medications: Medications reviewed and adjusted accordingly: Yes Vasopressors:: Phenlyephrine Sedation:: None Physical Exam Vital Signs: Temp Pulse Resp BP Pulse Ox 99.6 F 112 H 31 H 114/61 100 04/15/20 06:00 04/15/20 03:47 04/15/20 06:20 04/15/20 06:20 04/15/20 06:20 Intake & Output 04/14/20 04/15/20 04/16/20 06:59 06:59 06:59 Intake Total 1100 4604 Output Total 25 1480 Balance 1075 3124 Weight 51.6 kg Weight/Height Weight 51.6 kg Height 5 ft 4 in General appearance: PRESENT: no acute distress, hard of hearing, thin Head exam: PRESENT: atraumatic, normocephalic Eye exam: PRESENT: conjunctiva pink, EOMI, PERRLA. ABSENT: scleral icterus Ear exam: PRESENT: normal external ear exam Mouth exam: PRESENT: moist, tongue midline Respiratory exam: PRESENT: clear to auscultation sharmin. ABSENT: rales, rhonchi, wheezes Cardiovascular exam: PRESENT: RRR, tachycardia GI/Abdominal exam: PRESENT: guarding, soft. ABSENT: distended, mass, organo lmegaly, rebound, tenderness Rectal exam: PRESENT: deferred Gentrourinary exam: PRESENT: indwelling catheter Extremities exam: PRESENT: full ROM. ABSENT: calf tenderness, clubbing, pedal edema Musculoskeletal exam: PRESENT: normal inspection Neurological exam: PRESENT: alert, altered, awake, CN II-XII grossly intact Skin exam: PRESENT: dry, intact, warm. ABSENT: cyanosis, rash Tubes/Lines: PRESENT: Central Line, Nasogastic Tube Laboratory/Radiographs Laboratory Results: 04/15/20 05:35 04/15/20 05:35 04/14/20 04/14/20 04/14/20 07:55 07:55 15:40 WBC 19.7 H RBC 4.76 Hgb 14.1 D Hct 43.3 MCV 91 MCH 29.7 MCHC 32.6 RDW 14.7 H Plt Count 192 Seg Neutrophils % Not Reportable Sodium 141.0 Potassium 4.5 Chloride 105 Carbon Dioxide 20 L Anion Gap 16 BUN 30 H Creatinine 2.43 H Est GFR ( Amer) 31 L Glucose 159 H Lactic Acid 3.3 H Calcium 8.0 L Phosphorus 5.0 H Magnesium 1.9 Total Bilirubin 1.5 H AST 19 Alkaline Phosphatase 52 Total Protein 5.2 L Albumin 2.6 L 04/14/20 04/14/20 04/14/20 18:20 19:40 22:45 WBC 21.4 H RBC 4.62 Hgb 13.8 Hct 41.7 MCV 90 MCH 29.9 MCHC 33.1 RDW 14.8 H Plt Count 183 Seg Neutrophils % Not Reportable Sodium Potassium Chloride Carbon Dioxide Anion Gap BUN Creatinine Est GFR ( Amer) Glucose Lactic Acid 3.2 H 3.0 H Calcium Phosphorus Magnesium Total Bilirubin AST Alkaline Phosphatase Total Protein Albumin 04/15/20 04/15/20 05:35 05:35 WBC 20.9 H RBC 4.42 Hgb 13.1 L Hct 39.9 MCV 90 MCH 29.7 MCHC 32.8 RDW 14.9 H Plt Count 153 Seg Neutrophils % Not Reportable Sodium 138.5 Potassium 5.0 Chloride 108 H Carbon Dioxide 23 Anion Gap 8 BUN 45 H Creatinine 2.72 H Est GFR ( Amer) 27 L Glucose 107 Lactic Acid Calcium 7.5 L Phosphorus 4.4 Magnesium 1.9 Total Bilirubin 1.1 AST 19 Alkaline Phosphatase 38 Total Protein 4.4 L Albumin 2.1 L Impressions: Chest CT 04/14/20 00:03 IMPRESSION: 1. Significant pneumoperitoneum as well as fluid, mostly in the right upper quadrant. The most likely etiology is perforation of the distal stomach or proximal duodenum. 2. Cholelithiasis 3. Emphysema with chronic interstitial fibrosis. 4. Previous sternotomy. 5. Left renal atrophy. 6. No acute fractures. Abdomen/Pelvis CT 04/14/20 00:04 IMPRESSION: 1. Significant pneumoperitoneum as well as fluid, mostly in the right upper quadrant. The most likely etiology is perforation of the distal stomach or proximal duodenum. 2. Cholelithiasis 3. Emphysema with chronic interstitial fibrosis. 4. Previous sternotomy. 5. Left renal atrophy. 6. No acute fractures. EKG: ST at a rate of 127. LAFB. All labs, radiographs, diagnostic studies and EKGs were personally reviewed: Yes In addition, reports of radiographic and diagnostic studies were read: Yes Assessment and Plan - Diagnosis (1) Intra-abdominal free air of unknown etiology Is this a current diagnosis for this admission?: Yes Plan: The most likely cause is a perforated gastric or duodenal ulcer. At his age with his comorbidities, treating conservatively with a percutaneous drain is a good option as his mortality will likely be high with or without surgery. (2) Hypoadrenalism Is this a current diagnosis for this admission?: Yes Plan: This is a possibility given the need for phenlyephrine at quite a high dose. Random cortisol pending. (3) Acute on chronic renal failure Qualifiers: Chronic kidney disease stage: stage 4 (severe) Is this a current diagnosis for this admission?: Yes Plan: His baseline renal disease is already St IV. This perforation and ensuing sepsis/SIRS requiring phenlyephrine is likely going ton worsen this. Urine output is marginal. (4) Septic shock Is this a current diagnosis for this admission?: Yes Plan: He has at least a SIRS condition, perhaps sepsis and a need for pressors. Lactic acid is better, still a bit high. (5) BPH (benign prostatic hyperplasia) Qualifiers: Lower urinary tract symptom presence: symptoms absent Qualified Code(s): N40.0 - Benign prostatic hyperplasia without lower urinary tract symptoms Is this a current diagnosis for this admission?: Yes Plan: He has a coude ayers and is not obstructed. (6) Coronary artery disease Qualifiers: Coronary Disease-Associated Artery/Lesion type: bypass graft [place] vs. t ransplanted heart: [place] heart Associated angina: without angina Qualified Code(s): I25.810 - Atherosclerosis of coronary artery bypass graft(s) without angina pectoris Is this a current diagnosis for this admission?: Yes Plan: Inactive, S/P CABG. Plan Summary: Overall he is holding steady but at his age with comorbidities mortality will be quite high. Will talk to Dr. Cooney re: TPN. Critical Time Critical Time (minutes): 40 Level of Care: ICU Anticipated discharge: SNF Anticipated DC Timeframe: Other -: 1. The care of a critical patient is a dynamic process. This note is a architectural representative synopsis but static in nature. The timeframe for treatments given in order is not necessarily the actual time these treatments may have been done. 2. This patient requires critical care secondary to ongoing requirements for therapy not offered or safe outside the critical care environment. Transfer to a lower level of care will result in altered life or limb morbidity and mortality. 3. Multidisciplinary rounds completed. 4. ABCDE bundle addressed.
[2020-04-15] MEDS ORDERED: FAMOTIDINE INJ/PF 20 MG/2 ML SDV IV SCH (10:00)
[2020-04-15 12:44] LABS: HEMATOCRIT 39.2 % (37.9-51.0); HEMOGLOBIN 12.7 g/dL (13.5-17.0); MEAN CORPUSCULAR HEMOGLOBIN 29.5 pg (27.0-33.4); MEAN CORPUSCULAR HGB CONC 32.5 g/dL (32.0-36.0); MEAN CORPUSCULAR VOLUME 91 fl (80-97); PLATELET COUNT 154 10^3/uL (150-450); RED BLOOD COUNT 4.31 10^6/uL (4.35-5.55); RED CELL DISTRIBUTION WIDTH 14.6 % (11.5-14.0)
[2020-04-15 12:50] LABS: WHITE BLOOD COUNT 20.4 10^3/uL (4.0-10.5)
[2020-04-15 12:51] LABS: INTERNATIONAL RATION (INR) 1.73; PROTHROMBIN TIME 20.4 SEC (11.4-15.4)
[2020-04-15] MEDS ORDERED: DEXTROSE 10%-WATER 1,000 ML IV PRN (13:00)
[2020-04-15 13:17] LABS: PREALBUMIN 9.1 mg/dL (17.6-36.0)
[2020-04-15] MEDS: DEXTROSE 5%-WATER 250 ML with PHENYLEPHRINE HCL 40 MG IV PRN ×2 (13:53)
--- NOTE | 2020-04-15 15:38 | PDOC PROGRESS REPORT ---
Subjective Progress Note for:: 04/15/20 Subjective:: 89-year-old male with a likely perforated viscus. He presented with free air, sepsis, and tachycardia. Yesterday, the patient had a percutaneous drainage catheter placed by Dr. Cooney. Today, the patient is awake and alert. He denies chest pain, shortness of breath, nausea, vomiting, dizziness, orthostasis, blurry vision. He does report abdominal pain and mild distention. His drainage catheter is productive of bilious material. Reason For Visit: PNEUMOPERITONEUM Physical Exam Vital Signs: Temp Pulse Resp BP Pulse Ox 98.0 F 118 H 14 87/50 L 100 04/15/20 14:00 04/15/20 08:00 04/15/20 13:50 04/15/20 13:50 04/15/20 13:50 Intake & Output 04/14/20 04/15/20 04/16/20 06:59 06:59 06:59 Intake Total 1100 4604 1196 Output Total 25 1480 1435 Balance 1075 3124 -239 Weight 51.6 kg 51.6 kg General appearance: PRESENT: thin, other - Elderly Head exam: PRESENT: atraumatic, normocephalic Eye exam: ABSENT: scleral icterus Mouth exam: PRESENT: moist, neck supple Neck exam: ABSENT: tenderness, tracheal deviation, tracheostomy Respiratory exam: PRESENT: unlabored. ABSENT: tachypnea, wheezes Cardiovascular exam: PRESENT: tachycardia - Persistent Pulses: PRESENT: normal radial pulses GI/Abdominal exam: PRESENT: soft, tenderness - All 4 quadrants Rectal exam: PRESENT: deferred Extremities exam: ABSENT: clubbing Musculoskeletal exam: ABSENT: deformity Neurological exam: PRESENT: awake Psychiatric exam: ABSENT: agitated, anxious, depressed Skin exam: ABSENT: cyanosis, erythema, jaundice Results Laboratory Results: 04/15/20 12:29 04/15/20 05:35 04/14/20 04/14/20 04/14/20 15:40 18:20 19:40 WBC 21.4 H RBC 4.62 Hgb 13.8 Hct 41.7 MCV 90 MCH 29.9 MCHC 33.1 RDW 14.8 H Plt Count 183 Seg Neutrophils % Not Reportable Sodium Potassium Chloride Carbon Dioxide Anion Gap BUN Creatinine Est GFR ( Amer) Glucose Lactic Acid 3.3 H 3.2 H Calcium Phosphorus Magnesium Total Bilirubin AST Alkaline Phosphatase Total Protein Albumin Prealbumin Triglycerides 04/14/20 04/15/20 04/15/20 22:45 05:35 05:35 WBC 20.9 H RBC 4.42 Hgb 13.1 L Hct 39.9 MCV 90 MCH 29.7 MCHC 32.8 RDW 14.9 H Plt Count 153 Seg Neutrophils % Not Reportable Sodium 138.5 Potassium 5.0 Chloride 108 H Carbon Dioxide 23 Anion Gap 8 BUN 45 H Creatinine 2.72 H Est GFR ( Amer) 27 L Glucose 107 Lactic Acid 3.0 H Calcium 7.5 L Phosphorus 4.4 Magnesium 1.9 Total Bilirubin 1.1 AST 19 Alkaline Phosphatase 38 Total Protein 4.4 L Albumin 2.1 L Prealbumin Triglycerides 04/15/20 04/15/20 09:40 12:29 WBC 20.4 H RBC 4.31 L Hgb 12.7 L Hct 39.2 MCV 91 MCH 29.5 MCHC 32.5 RDW 14.6 H Plt Count 154 Seg Neutrophils % Sodium Potassium Chloride Carbon Dioxide Anion Gap BUN Creatinine Est GFR ( Amer) Glucose Lactic Acid Calcium Phosphorus Magnesium Total Bilirubin AST Alkaline Phosphatase Total Protein Albumin Prealbumin 9.1 L Triglycerides 86 Impressions: Chest CT 04/14/20 00:03 IMPRESSION: 1. Significant pneumoperitoneum as well as fluid, mostly in the right upper quadrant. The most likely etiology is perforation of the distal stomach or proximal duodenum. 2. Cholelithiasis 3. Emphysema with chronic interstitial fibrosis. 4. Previous sternotomy. 5. Left renal atrophy. 6. No acute fractures. Abdomen/Pelvis CT 04/14/20 00:04 IMPRESSION: 1. Significant pneumoperitoneum as well as fluid, mostly in the right upper quadrant. The most likely etiology is perforation of the distal stomach or proximal duodenum. 2. Cholelithiasis 3. Emphysema with chronic interstitial fibrosis. 4. Previous sternotomy. 5. Left renal atrophy. 6. No acute fractures. Assessment & Plan - Diagnosis (1) Perforated viscus Is this a current diagnosis for this admission?: Yes - Time Anticipated Discharge Disposition: unknown Anticipated Discharge Timeframe: unknown - Plan Summary Plan Summary: 89-year-old male with free air, abdominal pain, and sepsis. I suspect the patient has a perforated abdominal viscus (likely stomach or duodenum). A right upper quadrant percutaneous drain was placed. It is draining bilious fluid. The patient is mildly improved, although he remains significantly tachycardic. He is awake and alert. A long discussion was held with the patient's family. They desire no surgical intervention at this time. In light of this, surgery will sign off, as we have little more to add. If the patient and his family change their mind, and would like to discuss surgical options, please renotify the surgicalist.
[2020-04-15] MEDS ORDERED: HALOPERIDOL LACTATE INJ 5 MG/1 ML VIAL ONE ×2 (19:23→20:22)
[2020-04-15] MEDS ORDERED: HALOPERIDOL LACTATE INJ 5 MG/1 ML VIAL IV ONE ×2 (20:00→21:00)
[2020-04-15] MEDS ORDERED: HALOPERIDOL LACTATE INJ 5 MG/1 ML VIAL IV PRN (20:27)
[2020-04-15] MEDS ORDERED: RINGERS SOLUTION,LACTATED 1,000 ML IV ONE ×2 (20:30→21:30)
[2020-04-15] MEDS: AMINO ACIDS 5 %/DEXTROSE 20 % 1,000 ML IV PRN (21:22)
[2020-04-15] MEDS ORDERED: KETOROLAC TROMETHAMINE INJ/PF 30 MG/1 ML SDV IV PRN (22:38)
[2020-04-16] MEDS ORDERED: KETOROLAC TROMETHAMINE INJ/PF 30 MG/1 ML SDV IV SCH
[2020-04-16] MEDS ORDERED: NOREPINEPHRINE BITARTRATE INJ/PF 4 MG/4 ML SDV IV ONE ×2 (00:04→06:28)
[2020-04-16] MEDS: DEXTROSE 5%-WATER 250 ML with NOREPINEPHRINE BITARTRATE 4 MG IV PRN ×6 (00:05→15:32)
[2020-04-16] MEDS: DEXTROSE 5%-WATER 250 ML with PHENYLEPHRINE HCL 40 MG IV PRN ×6 (02:18→19:00)
[2020-04-16 04:06] LABS: ABSOLUTE MONOCYTES (AUTO) 0.9 10^3/uL (0.1-1.4); ABSOLUTE NEUT (AUTO) 12.7 10^3/uL (1.7-8.2); BASOPHILS % (AUTO) 0.2 % (0-2); MEAN CORPUSCULAR HEMOGLOBIN 30.3 pg (27.0-33.4); MEAN CORPUSCULAR HGB CONC 33.7 g/dL (32.0-36.0); MEAN CORPUSCULAR VOLUME 90 fl (80-97); MONOCYTES % (AUTO) 6.2 % (3-13); PLATELET COUNT 116 10^3/uL (150-450); RED BLOOD COUNT 3.01 10^6/uL (4.35-5.55); RED CELL DISTRIBUTION WIDTH 14.9 % (11.5-14.0); SEGMENTED NEUTROPHILS % (AUTO) 86.6 % (42-78); TOTAL CELLS COUNTED % (AUTO) 100 %; WHITE BLOOD COUNT 14.6 10^3/uL (4.0-10.5)
[2020-04-16 04:07] LABS: HEMOGLOBIN 9.1 g/dL (13.5-17.0)
[2020-04-16 04:08] LABS: ALBUMIN 1.6 g/dL (3.5-5.0); ALKALINE PHOSPHATASE 27 U/L (38-126); ANION GAP 6 (5-19); ASPARTATE AMINO TRANSFERASE 19 U/L (17-59); BILIRUBIN,DIRECT 0.4 mg/dL (0.0-0.4); BILIRUBIN,TOTAL 0.7 mg/dL (0.2-1.3); BLOOD UREA NITROGEN 50 mg/dL (7-20); CALCIUM 7.1 mg/dL (8.4-10.2); CARBON DIOXIDE 24 mmol/L (22-30); CHLORIDE 108 mmol/L (98-107); GLUCOSE 160 mg/dL (75-110); TOTAL PROTEIN 3.3 g/dL (6.3-8.2)
[2020-04-16 04:12] LABS: PREALBUMIN 5.7 mg/dL (17.6-36.0)
[2020-04-16 04:30] LABS: POTASSIUM 3.9 mmol/L (3.6-5.0)
[2020-04-16] MEDS: PIPERACILLIN SODIUM/TAZOBACTAM 4.5 GM in NORMAL SALINE 100 ML IV SCH (06:15)
[2020-04-16] MEDS: INSULIN REG, HUMAN 100 UNIT/ML 3 ML VIAL (PYX) SUBCUT SCH ×4 (06:26→23:21)
[2020-04-16] MEDS: RINGERS SOLUTION,LACTATED 1,000 ML IV PRN ×3 (06:33→17:53)
[2020-04-16] MEDS: METRONIDAZOLE 500 MG/NS RTU 500 MG/100 ML RTUPB IV SCH ×3 (06:37→22:25)
[2020-04-16] MEDS: HEPARIN SOD (PORCINE) 5,000 UNIT/ML 1 ML VIAL SUBCUT SCH ×3 (06:37→22:26)
--- NOTE | 2020-04-16 08:23 | PDOC CRITICAL CARE PROG REPORT ---
General Date:: 04/16/20 ICU Day:: 2 Hospital Day:: 2 Resuscitation Status: Full Code Events in the past 12 to 24 Hours:: More awake, now on levophed and phenylephrine. Review of systems relevant to events:: GI, CV Reason for ICU Addmission:: Pneumoperitoneum, need for phenylephrine. Now levop hed also. - Medications: Medications reviewed and adjusted accordingly: Yes Vasopressors:: Levophed, phenylephrine. Sedation:: None Physical Exam Vital Signs: Temp Pulse Resp BP Pulse Ox 98.2 F 108 H 23 H 90/61 L 100 04/16/20 04:00 04/16/20 07:33 04/16/20 06:31 04/16/20 06:31 04/16/20 06:31 Intake & Output 04/15/20 04/16/20 04/17/20 06:59 06:59 06:59 Intake Total 4604 4979 Output Total 1480 2925 Balance 3124 2054 Weight 51.6 kg Weight/Height Weight 51.6 kg Height 5 ft 5 in General appearance: PRESENT: no acute distress, cooperative, thin Head exam: PRESENT: atraumatic, normocephalic Eye exam: PRESENT: conjunctiva pink, EOMI, PERRLA. ABSENT: scleral icterus Ear exam: PRESENT: normal external ear exam Mouth exam: PRESENT: moist, tongue midline Respiratory exam: PRESENT: clear to auscultation sharmin. ABSENT: rales, rhonchi, wheezes Cardiovascular exam: PRESENT: RRR, tachycardia - Mild. ABSENT: diastolic murmur, rubs, systolic murmur GI/Abdominal exam: PRESENT: diminished bowel sounds, guarding, soft, tenderness - In RUQ. Bilious drainage from RUQ drain, other - Ostomy functioning well. Output at times looks bloody. Hgb 12.7-9.1. Rectal exam: PRESENT: deferred Gentrourinary exam: PRESENT: indwelling catheter Extremities exam: PRESENT: full ROM. ABSENT: calf tenderness, clubbing, pedal edema Musculoskeletal exam: PRESENT: normal inspection Neurological exam: PRESENT: alert, awake, oriented to person, oriented to place, oriented to time, oriented to situation, CN II-XII grossly intact. ABSENT: motor sensory deficit Psychiatric exam: PRESENT: appropriate affect, normal mood Skin exam: PRESENT: dry, intact, warm. ABSENT: cyanosis, rash Tubes/Lines: PRESENT: Other - RUQ drain Laboratory/Radiographs Laboratory Results: 04/16/20 03:30 04/16/20 03:30 04/15/20 04/15/20 04/16/20 09:40 12:29 03:30 WBC 20.4 H 14.6 H RBC 4.31 L 3.01 L Hgb 12.7 L 9.1 L D Hct 39.2 27.0 L MCV 91 90 MCH 29.5 30.3 MCHC 32.5 33.7 RDW 14.6 H 14.9 H Plt Count 154 116 L Seg Neutrophils % 86.6 H Sodium Potassium Chloride Carbon Dioxide Anion Gap BUN Creatinine Est GFR ( Amer) Glucose Calcium Magnesium Total Bilirubin AST Alkaline Phosphatase Total Protein Albumin Prealbumin 9.1 L Triglycerides 86 04/16/20 03:30 WBC RBC Hgb Hct MCV MCH MCHC RDW Plt Count Seg Neutrophils % Sodium 137.9 Potassium 3.9 D Chloride 108 H Carbon Dioxide 24 Anion Gap 6 BUN 50 H Creatinine 2.31 H Est GFR ( Amer) 32 L Glucose 160 H Calcium 7.1 L Magnesium 1.9 Total Bilirubin 0.7 AST 19 Alkaline Phosphatase 27 L Total Protein 3.3 L Albumin 1.6 L Prealbumin 5.7 L Triglycerides Impressions: Chest CT 04/14/20 00:03 IMPRESSION: 1. Significant pneumoperitoneum as well as fluid, mostly in the right upper quadrant. The most likely etiology is perforation of the distal stomach or proximal duodenum. 2. Cholelithiasis 3. Emphysema with chronic interstitial fibrosis. 4. Previous sternotomy. 5. Left renal atrophy. 6. No acute fractures. Abdomen/Pelvis CT 04/14/20 00:04 IMPRESSION: 1. Significant pneumoperitoneum as well as fluid, mostly in the right upper quadrant. The most likely etiology is perforation of the distal stomach or proximal duodenum. 2. Cholelithiasis 3. Emphysema with chronic interstitial fibrosis. 4. Previous sternotomy. 5. Left renal atrophy. 6. No acute fractures. All labs, radiographs, diagnostic studies and EKGs were personally reviewed: Yes In addition, reports of radiographic and diagnostic studies were read: Yes Assessment and Plan - Diagnosis (1) Intra-abdominal free air of unknown etiology Is this a current diagnosis for this admission?: Yes Plan: His RUQ drain is putting out bilious material. Cultures show GNR and C albicans/d[place]ensis. Final not back. Although he looks better, the need for levophed is concerning. Will include diflucan for now. (2) Hypoadrenalism Is this a current diagnosis for this admission?: Yes Plan: His level is 106 for random cartisol. He is not hypoadrenal. (3) Acute on chronic renal failure Qualifiers: Chronic kidney disease stage: stage 4 (severe) Is this a current diagnosis for this admission?: Yes Plan: His Cr has improved somewhat. U/O 1570 last shift. (4) Septic shock Is this a current diagnosis for this admission?: Yes Plan: His need for levophed is suggestive that his shock is not resolved. (5) BPH (benign prostatic hyperplasia) Qualifiers: Lower urinary tract symptom presence: symptoms absent Qualified Code(s): N40.0 - Benign prostatic hyperplasia without lower urinary tract symptoms Is this a current diagnosis for this admission?: Yes Plan: Continue Coude. (6) Coronary artery disease Qualifiers: Coronary Disease-Associated Artery/Lesion type: bypass graft [place] vs. transplanted heart: [place] heart Associated angina: without angina Qualified Code(s): I25.810 - Atherosclerosis of coronary artery bypass graft(s) without angina pectoris Is this a current diagnosis for this admission?: Yes Plan: Inactive. (7) UTI (urinary tract infection), uncomplicated Is this a current diagnosis for this admission?: Yes Plan: He has [phone] CFU of MRSA and no symptoms. This is not a UTI (8) Back pain Qualifiers: Chronicity: unspecified Back pain laterality: midline Sciatica presence: without sciatica Is this a current diagnosis for this admission?: Yes Plan: Will provide lidoderm patch and increase dilaudid. Plan Summary: Add IV diflucan and keep at an ICU level while on pressors. Critical Time Critical Time (minutes): 35 Level of Care: ICU Anticipated discharge: SNF Anticipated DC Timeframe: Other -: 1. The care of a critical patient is a dynamic process. This note is a traveling sales representative synopsis but static in nature. The timeframe for treatments given in order is not necessarily the actual time these treatments may have been done. 2. This patient requires critical care secondary to ongoing requirements for t herapy not offered or safe outside the critical care environment. Transfer to a lower level of care will result in altered life or limb morbidity and mortality. 3. Multidisciplinary rounds completed. 4. ABCDE bundle addressed.
[2020-04-16] MEDS: LIDOCAINE 5% (700 MG) TRANSDERMAL ADH..PATCH TP SCH (09:23)
[2020-04-16] MEDS: HYDROMORPHONE HCL INJ/PF 2 MG/ML AMPULE IV PRN ×2 (09:24→13:56)
[2020-04-16] MEDS: FLUCONAZOLE 200 MG/NS RTU 200 MG/100 ML RTUPB IV SCH (10:24)
[2020-04-16] MEDS: PANTOPRAZOLE SODIUM 40 MG VIAL IV SCH (11:22)
[2020-04-16] MEDS: PIPERACILLIN SODIUM/TAZOBACTAM 2.25 GM in NORMAL SALINE 50 ML IV SCH ×2 (15:46→21:10)
[2020-04-16 21:43] LABS: HEMATOCRIT 23.8 % (37.9-51.0); MEAN CORPUSCULAR HEMOGLOBIN 29.8 pg (27.0-33.4); MEAN CORPUSCULAR HGB CONC 33.1 g/dL (32.0-36.0); MEAN CORPUSCULAR VOLUME 90 fl (80-97); PLATELET COUNT 108 10^3/uL (150-450); RED BLOOD COUNT 2.64 10^6/uL (4.35-5.55); RED CELL DISTRIBUTION WIDTH 14.9 % (11.5-14.0); WHITE BLOOD COUNT 13.5 10^3/uL (4.0-10.5)
[2020-04-16 21:45] LABS: HEMOGLOBIN 7.9 g/dL (13.5-17.0)
[2020-04-16] MEDS: AMINO ACIDS 5 %/DEXTROSE 20 % 1,000 ML IV PRN (22:26)
[2020-04-17] MEDS: HYDROMORPHONE HCL INJ/PF 2 MG/ML AMPULE IV PRN ×2 (01:54→09:10)
[2020-04-17 04:21] LABS: HEMATOCRIT 22.9 % (37.9-51.0); MEAN CORPUSCULAR HEMOGLOBIN 29.6 pg (27.0-33.4); MEAN CORPUSCULAR HGB CONC 32.9 g/dL (32.0-36.0); MEAN CORPUSCULAR VOLUME 90 fl (80-97); PLATELET COUNT 107 10^3/uL (150-450); RED BLOOD COUNT 2.55 10^6/uL (4.35-5.55); RED CELL DISTRIBUTION WIDTH 15.1 % (11.5-14.0); WHITE BLOOD COUNT 12.4 10^3/uL (4.0-10.5)
[2020-04-17 04:25] LABS: BLOOD UREA NITROGEN 49 mg/dL (7-20); GLUCOSE 131 mg/dL (75-110); PHOSPHORUS 1.9 mg/dL (2.5-4.5); POTASSIUM 3.8 mmol/L (3.6-5.0)
[2020-04-17 04:30] LABS: CARBON DIOXIDE 25 mmol/L (22-30); CHLORIDE 108 mmol/L (98-107)
[2020-04-17 04:31] LABS: PREALBUMIN 4.6 mg/dL (17.6-36.0)
[2020-04-17 04:39] LABS: HEMOGLOBIN 7.5 g/dL (13.5-17.0)
[2020-04-17 04:46] LABS: ANION GAP 3 (5-19)
[2020-04-17 04:47] LABS: CALCIUM 6.9 mg/dL (8.4-10.2)
[2020-04-17 05:06] LABS: HEMATOCRIT 22.4 % (37.9-51.0); MEAN CORPUSCULAR HEMOGLOBIN 29.9 pg (27.0-33.4); MEAN CORPUSCULAR HGB CONC 33.4 g/dL (32.0-36.0); MEAN CORPUSCULAR VOLUME 90 fl (80-97); PLATELET COUNT 110 10^3/uL (150-450); RED CELL DISTRIBUTION WIDTH 14.8 % (11.5-14.0); WHITE BLOOD COUNT 11.5 10^3/uL (4.0-10.5)
[2020-04-17] MEDS: PIPERACILLIN SODIUM/TAZOBACTAM 2.25 GM in NORMAL SALINE 50 ML IV SCH ×3 (05:17→21:36)
[2020-04-17] MEDS: HEPARIN SOD (PORCINE) 5,000 UNIT/ML 1 ML VIAL SUBCUT SCH ×3 (05:20→21:36)
[2020-04-17 05:28] LABS: HEMOGLOBIN 7.5 g/dL (13.5-17.0)
[2020-04-17 05:35] LABS: ABSOLUTE LYMPHOCYTES# (MANUAL) 1.2 10^3/uL (0.5-4.7); ABSOLUTE MONOCYTES # (MANUAL) 0.6 10^3/uL (0.1-1.4); BAND NEUTROPHILS % (MANUAL) 2 % (3-5); BASOPHILS % (MANUAL) 0 % (0-2); EOSINOPHILS % (MANUAL) 3 % (0-6); LYMPHOCYTES % (MANUAL) 10 % (13-45); MONOCYTES % (MANUAL) 5 % (3-13); SEGMENTED NEUTROPHILS % (MAN) 80 % (42-78); TOTAL CELLS COUNTED 100
[2020-04-17 05:37] LABS: ANISOCYTOSIS SLIGHT; BURR CELLS SLIGHT; OVALOCYTES SLIGHT; PLATELET COMMENT DECREASED; POIKILOCYTOSIS SLIGHT; TOXIC GRANULATION 1+
[2020-04-17] MEDS: RINGERS SOLUTION,LACTATED 1,000 ML IV PRN ×2 (05:40→19:00)
[2020-04-17] MEDS: DEXTROSE 5%-WATER 250 ML with PHENYLEPHRINE HCL 40 MG IV PRN ×2 (05:40)
[2020-04-17] MEDS: INSULIN REG, HUMAN 100 UNIT/ML 3 ML VIAL (PYX) SUBCUT SCH ×3 (05:43→17:59)
[2020-04-17] MEDS: METRONIDAZOLE 500 MG/NS RTU 500 MG/100 ML RTUPB IV SCH ×3 (05:46→22:45)
[2020-04-17] MEDS: FLUCONAZOLE 200 MG/NS RTU 200 MG/100 ML RTUPB IV SCH (10:18)
[2020-04-17] MEDS: PANTOPRAZOLE SODIUM 40 MG VIAL IV SCH (10:18)
[2020-04-17] MEDS ORDERED: NORMAL SALINE 250 ML IV PRN ×2 (10:37)
[2020-04-17] MEDS: LIDOCAINE 5% (700 MG) TRANSDERMAL ADH..PATCH TP SCH (11:24)
[2020-04-17] MEDS: CALCIUM GLUC IN NACL, ISO-OSM 1 GM/50 ML RTUPB IV SCH ×2 (11:51→13:03)
--- NOTE | 2020-04-17 12:30 | PDOC CRITICAL CARE PROG REPORT ---
General Date:: 04/17/20 ICU Day:: 3 Hospital Day:: 3 Resuscitation Status: Full Code Events in the past 12 to 24 Hours:: Off levophed, weaning phenylephrine. Review of systems relevant to events:: GI, CV Reason for ICU Addmission:: Pneumoperitoneum, need for phenylephrine. - Medications: Medications reviewed and adjusted accordingly: Yes Vasopressors:: Phenylephrine Sedation:: None Physical Exam Vital Signs: Temp Pulse Resp BP Pulse Ox 99.3 F 124 H 18 135/58 H 100 04/17/20 11:50 04/17/20 11:50 04/17/20 11:50 04/17/20 11:50 04/17/20 11:50 Intake & Output 04/16/20 04/17/20 04/18/20 06:59 06:59 06:59 Intake Total 4979 5869 190 Output Total 2925 1835 725 Balance 2054 4034 -535 Weight 51.6 kg 61.8 kg Weight/Height Weight 61.8 kg Height 5 ft 5 in General appearance: PRESENT: no acute distress, thin Head exam: PRESENT: atraumatic, normocephalic Eye exam: PRESENT: conjunctiva pink, EOMI, PERRLA. ABSENT: scleral icterus Ear exam: PRESENT: normal external ear exam Mouth exam: PRESENT: moist, tongue midline Respiratory exam: PRESENT: clear to auscultation sharmin. ABSENT: rales, rhonchi, wheezes Cardiovascular exam: PRESENT: RRR, tachycardia. ABSENT: diastolic murmur, rubs, systolic murmur GI/Abdominal exam: PRESENT: diminished bowel sounds, guarding, soft, other - RUQ drain Rectal exam: PRESENT: deferred Gentrourinary exam: PRESENT: indwelling catheter Extremities exam: PRESENT: full ROM. ABSENT: calf tenderness, clubbing, pedal edema Musculoskeletal exam: PRESENT: normal inspection Neurological exam: PRESENT: alert, altered, awake, oriented to person Skin exam: PRESENT: dry, intact, warm. ABSENT: cyanosis, rash Tubes/Lines: PRESENT: Central Line Laboratory/Radiographs Laboratory Results: 04/17/20 04:43 04/17/20 03:55 04/16/20 04/17/20 04/17/20 21:25 03:55 03:55 WBC 13.5 H RBC 2.64 L Hgb 7.9 L Hct 23.8 L MCV 90 MCH 29.8 MCHC 33.1 RDW 14.9 H Plt Count 108 L Seg Neutrophils % Sodium 136.0 L Potassium 3.8 Chloride 108 H Carbon Dioxide 25 Anion Gap 3 L BUN 49 H Creatinine 1.78 H Est GFR ( Amer) 44 L Glucose 131 H Calcium 6.9 L* Ionized Calcium Tripp 1.12 L Phosphorus 1.9 L Prealbumin 4.6 L Blood Type Antibody Screen 04/17/20 04/17/20 04/17/20 03:55 04:43 10:53 WBC 12.4 H 11.5 H RBC 2.55 L 2.50 L Hgb 7.5 L 7.5 L Hct 22.9 L 22.4 L MCV 90 90 MCH 29.6 29.9 MCHC 32.9 33.4 RDW 15.1 H 14.8 H Plt Count 107 L 110 L Seg Neutrophils % Not Reportable Sodium Potassium Chloride Carbon Dioxide Anion Gap BUN Creatinine Est GFR ( Amer) Glucose Calcium Ionized Calcium Tripp Phosphorus Prealbumin Blood Type O POSITIVE Antibody Screen NEGATIVE 04/14/20 11:30 Abdominal Fluid Gram Stain - Final 04/14/20 11:30 Abdominal Fluid Body Fluid Culture - Final Enterobacter Cloacae C.albicans/C.dubliniensis No Anaerobic Organisms 04/14/20 02:27 Catheterized Urine Urine Culture - Final NO GROWTH 2 DAYS Impressions: Chest CT 04/14/20 00:03 IMPRESSION: 1. Significant pneumoperitoneum as well as fluid, mostly in the right upper quadrant. The most likely etiology is perforation of the distal stomach or proximal duodenum. 2. Cholelithiasis 3. Emphysema with chronic interstitial fibrosis. 4. Previous sternotomy. 5. Left renal atrophy. 6. No acute fractures. Abdomen/Pelvis CT 04/14/20 00:04 IMPRESSION: 1. Significant pneumoperitoneum as well as fluid, mostly in the right upper quadrant. The most likely etiology is perforation of the distal stomach or proximal duodenum. 2. Cholelithiasis 3. Emphysema with chronic interstitial fibrosis. 4. Previous sternotomy. 5. Left renal atrophy. 6. No acute fractures. All labs, radiographs, diagnostic studies and EKGs were personally reviewed: Yes In addition, reports of radiographic and diagnostic studies were read: Yes Assessment and Plan - Diagnosis (1) Intra-abdominal free air of unknown etiology Is this a current diagnosis for this admission?: Yes Plan: Has a RUQ drain for perforation. (2) Hypoadrenalism Is this a current diagnosis for this admission?: Yes Plan: Not an issue. (3) Acute on chronic renal failure Qualifiers: Chronic kidney disease stage: stage 4 (severe) Is this a current diagnosis for this admission?: Yes Plan: Cr improved to 1.7. GFR 36. (4) Septic shock Is this a current diagnosis for this admission?: Yes Plan: Still needing phenylephrine but levophed off. Improved but not resolved (5) BPH (benign prostatic hyperplasia) Qualifiers: Lower urinary tract symptom presence: symptoms absent Qualified Code(s): N40.0 - Benign prostatic hyperplasia without lower urinary tract symptoms Is this a current diagnosis for this admission?: Yes Plan: Coude (6) Coronary artery disease Qualifiers: Coronary Disease-Associated Artery/Lesion type: bypass graft [place] vs. transplanted heart: [place] heart Associated angina: without angina Qualified Code(s): I25.810 - Atherosclerosis of coronary artery bypass graft(s) without angina pectoris Is this a current diagnosis for this admission?: Yes Plan: Inactive (7) Back pain Qualifiers: Chronicity: unspecified Back pain laterality: midline Sciatica presence: without sciatica Is this a current diagnosis for this admission?: Yes Plan: Much improved with lidoderm. Plan Summary: He will need the ICU as long as he is on pressors. Prognosis still is not good. Johnny Franklin spoke to . He is still a full code for now. Critical Time Critical Time (minutes): 35 Level of Care: ICU Anticipated discharge: SNF Anticipated DC Timeframe: Other -: 1. The care of a critical patient is a dynamic process. This note is a community health representative synopsis but static in nature. The timeframe for treatments given in order is not necessarily the actual time these treatments may have been done. 2. This patient requires critical care secondary to ongoing requirements for therapy not offered or safe outside the critical care environment. Transfer to a lower level of care will result in altered life or limb morbidity and mortality. 3. Multidisciplinary rounds completed. 4. ABCDE bundle addressed.
[2020-04-17] MEDS: AMINO ACIDS 5 %/DEXTROSE 20 % 1,000 ML IV PRN (23:05)
[2020-04-18] MEDS: INSULIN REG, HUMAN 100 UNIT/ML 3 ML VIAL (PYX) SUBCUT SCH ×5 (00:55→23:31)
[2020-04-18 04:12] LABS: HEMATOCRIT 26.1 % (37.9-51.0); HEMOGLOBIN 9.3 g/dL (13.5-17.0); MEAN CORPUSCULAR HGB CONC 35.5 g/dL (32.0-36.0); MEAN CORPUSCULAR VOLUME 87 fl (80-97); PLATELET COUNT 102 10^3/uL (150-450); RED BLOOD COUNT 2.98 10^6/uL (4.35-5.55); RED CELL DISTRIBUTION WIDTH 14.5 % (11.5-14.0); WHITE BLOOD COUNT 10.4 10^3/uL (4.0-10.5)
[2020-04-18 04:26] LABS: ALBUMIN 1.5 g/dL (3.5-5.0); ALKALINE PHOSPHATASE 46 U/L (38-126); ASPARTATE AMINO TRANSFERASE 17 U/L (17-59); BILIRUBIN,DIRECT 0.6 mg/dL (0.0-0.4); BLOOD UREA NITROGEN 39 mg/dL (7-20); CALCIUM 7.3 mg/dL (8.4-10.2); GLUCOSE 136 mg/dL (75-110); PHOSPHORUS 1.3 mg/dL (2.5-4.5); POTASSIUM 3.6 mmol/L (3.6-5.0); TOTAL PROTEIN 3.2 g/dL (6.3-8.2)
[2020-04-18 04:38] LABS: ANION GAP 4 (5-19); CARBON DIOXIDE 26 mmol/L (22-30); CHLORIDE 109 mmol/L (98-107)
[2020-04-18] MEDS ORDERED: FUROSEMIDE INJ/PF 20 MG/2 ML SDV IV ONE (05:13)
[2020-04-18] MEDS ORDERED: FUROSEMIDE INJ/PF 20 MG/2 ML SDV ONE (05:15)
[2020-04-18] MEDS: PIPERACILLIN SODIUM/TAZOBACTAM 2.25 GM in NORMAL SALINE 50 ML IV SCH ×3 (05:40→22:28)
[2020-04-18] MEDS: RINGERS SOLUTION,LACTATED 1,000 ML IV PRN (05:40)
[2020-04-18] MEDS: HYDROMORPHONE HCL INJ/PF 2 MG/ML AMPULE IV PRN ×2 (05:41→10:59)
[2020-04-18] MEDS: HEPARIN SOD (PORCINE) 5,000 UNIT/ML 1 ML VIAL SUBCUT SCH ×3 (05:43→22:27)
[2020-04-18] MEDS: METRONIDAZOLE 500 MG/NS RTU 500 MG/100 ML RTUPB IV SCH ×3 (06:07→22:27)
--- NOTE | 2020-04-18 07:32 | RADIOLOGY REPORT (SQ) ---
CLINICAL HISTORY: Hypoxemia COMPARISON: 03/30/2020. TECHNIQUE: XR CHEST 1 VIEW 04/18/2020 12:00 AM CDT FINDINGS: The heart is mildly enlarged following sternotomy. There is worsening left mid and lower lung airspace disease is new right perihilar and right basilar airspace disease. There is no pleural effusion. There is no pneumothorax. There are no acute osseous findings. There is air below the right diaphragm. IMPRESSION: Worsening bilateral pneumonia. Strongly suspect pneumoperitoneum.
--- NOTE | 2020-04-18 08:29 | PDOC CRITICAL CARE PROG REPORT ---
General Date:: 04/18/20 ICU Day:: 4 Hospital Day:: 4 Resuscitation Status: Full Code Events in the past 12 to 24 Hours:: Developement of pneumomediastinu, anterior PTX. Review of systems relevant to events:: GI, pulmonary. Reason for ICU Addmission:: Pneumoperitoneum. - Medications: Medications reviewed and adjusted accordingly: Yes Vasopressors:: None. Sedation:: None Physical Exam Vital Signs: Temp Pulse Resp BP Pulse Ox 98.2 F 124 H 23 H 133/73 H 96 04/18/20 03:51 04/18/20 05:58 04/18/20 06:00 04/18/20 05:58 04/18/20 06:00 Intake & Output 04/17/20 04/18/20 04/19/20 06:59 06:59 06:59 Intake Total 5869 2698 Output Total 1835 4070 Balance 4034 -1372 Weight 61.8 kg 64 kg Weight/Height Weight 64 kg Height 5 ft 5 in General appearance: PRESENT: mild distress, thin Head exam: PRESENT: atraumatic, normocephalic Eye exam: PRESENT: conjunctiva pink, EOMI, PERRLA. ABSENT: scleral icterus Ear exam: PRESENT: normal external ear exam Mouth exam: PRESENT: moist, tongue midline Respiratory exam: PRESENT: decreased breath sounds, tachypnea Cardiovascular exam: PRESENT: RRR. ABSENT: diastolic murmur, rubs, systolic murmur GI/Abdominal exam: PRESENT: normal bowel sounds, soft. ABSENT: distended, guarding, mass, organolmegaly, rebound, tenderness Rectal exam: PRESENT: deferred Gentrourinary exam: PRESENT: indwelling catheter Extremities exam: PRESENT: +1 edema Musculoskeletal exam: PRESENT: normal inspection Neurological exam: PRESENT: altered, awake, CN II-XII grossly intact Skin exam: PRESENT: dry, intact, warm. ABSENT: cyanosis, rash Tubes/Lines: PRESENT: Other - [place]tt drain of RUQ. Laboratory/Radiographs Laboratory Results: 04/18/20 03:50 04/18/20 03:50 04/17/20 04/18/20 04/18/20 10:53 03:50 03:50 WBC 10.4 RBC 2.98 L Hgb 9.3 L Hct 26.1 L MCV 87 MCH 31.0 MCHC 35.5 RDW 14.5 H Plt Count 102 L Sodium 138.5 Potassium 3.6 Chloride 109 H Carbon Dioxide 26 Anion Gap 4 L BUN 39 H Creatinine 1.53 H Est GFR ( Amer) 52 L Glucose 136 H Calcium 7.3 L Phosphorus 1.3 L Total Bilirubin 1.0 AST 17 Alkaline Phosphatase 46 Total Protein 3.2 L Albumin 1.5 L Prealbumin 4.0 L Blood Type O POSITIVE Antibody Screen NEGATIVE 04/14/20 11:30 Abdominal Fluid Gram Stain - Final 04/14/20 11:30 Abdominal Fluid Body Fluid Culture - Final Enterobacter Cloacae C.albicans/C.dubliniensis No Anaerobic Organisms Impressions: Chest CT 04/14/20 00:03 IMPRESSION: 1. Significant pneumoperitoneum as well as fluid, mostly in the right upper quadrant. The most likely etiology is perforation of the distal stomach or proximal duodenum. 2. Cholelithiasis 3. Emphysema with chronic interstitial fibrosis. 4. Previous sternotomy. 5. Left renal atrophy. 6. No acute fractures. Abdomen/Pelvis CT 04/14/20 00:04 IMPRESSION: 1. Significant pneumoperitoneum as well as fluid, mostly in the right upper quadrant. The most likely etiology is perforation of the distal stomach or proximal duodenum. 2. Cholelithiasis 3. Emphysema with chronic interstitial fibrosis. 4. Previous sternotomy. 5. Left renal atrophy. 6. No acute fractures. Chest X-Ray 04/18/20 00:00 IMPRESSION: Worsening bilateral pneumonia. Strongly suspect pneumoperitoneum. All labs, radiographs, diagnostic studies and EKGs were personally reviewed: Yes In addition, reports of radiographic and diagnostic studies were read: Yes Assessment and Plan - Diagnosis (1) Intra-abdominal free air of unknown etiology Is this a current diagnosis for this admission?: Yes Plan: Likely from a perforated gastric or doudenal ulcar. Now it appears he has a pneumomediastinum and anterior L PTX. He is breathing somewhat harder than yesterday. A chest tube or Heimlich catheter will likely not help without definitive surgery which is not an option. (2) Hypoadrenalism Is this a current diagnosis for this admission?: Yes Plan: Not an issue (3) Acute on chronic renal failure Qualifiers: Chronic kidney disease stage: stage 4 (severe) Is this a current diagnosis for this admission?: Yes Plan: GFR 45 and Cr 1.53. Improved. (4) Septic shock Is this a current diagnosis for this admission?: Yes Plan: Off all pressors. (5) BPH (benign prostatic hyperplasia) Qualifiers: Lower urinary tract symptom presence: symptoms absent Qualified Code(s): N40.0 - Benign prostatic hyperplasia without lower urinary tract symptoms Is this a current diagnosis for this admission?: Yes Plan: Continue Coude. (6) Coronary artery disease Qualifiers: Coronary Disease-Associated Artery/Lesion type: bypass graft [place] vs. transplanted heart: [place] heart Associated angina: without angina Qualified Code(s): I25.810 - Atherosclerosis of coronary artery bypass graft(s) without angina pectoris Is this a current diagnosis for this admission?: Yes Plan: Inactive. (7) Back pain Qualifiers: Chronicity: unspecified Back pain laterality: midline Sciatica presence: without sciatica Is this a current diagnosis for this admission?: Yes Plan: Controlled. Plan Summary: I have spoken to the [id number] yesterday who understands he will likely not survive. Now with pulmonary complications from the perforation this is more apparent. The [id number] agrees with a DNR status. With new findings a comfort care approach may be more appropriate. to come in about noon today. Critical Time Critical Time (minutes): 35 Level of Care: ICU Anticipated discharge: Hospice Anticipated DC Timeframe: Other -: 1. The care of a critical patient is a dynamic process. This note is a hospital insurance representative synopsis but static in nature. The timeframe for treatments given in order is not necessarily the actual time these treatments may have been done. 2. This patient requires critical care secondary to ongoing requirements for therapy not offered or safe outside the critical care environment. Transfer to a lower level of care will result in altered life or limb morbidity and mortality. 3. Multidisciplinary rounds completed. 4. ABCDE bundle addressed.
[2020-04-18] MEDS ORDERED: FAT EMULSIONS 250 ML IV SCH (10:00)
[2020-04-18] MEDS: FLUCONAZOLE 200 MG/NS RTU 200 MG/100 ML RTUPB IV SCH (10:44)
[2020-04-18] MEDS: LIDOCAINE 5% (700 MG) TRANSDERMAL ADH..PATCH TP SCH (10:44)
[2020-04-18] MEDS: PANTOPRAZOLE SODIUM 40 MG VIAL IV SCH (10:45)
--- NOTE | 2020-04-18 15:51 | Progress Note ---
Provider Note Provider Note: I've spoken with the patient's and stepson. They are aware he is likely not going to survive. Although a difficult decision they have decided to make him comfort care and DNR status.
[2020-04-18] MEDS ORDERED: MORPHINE SULFATE 10 MG/ML INJ ONE (19:46)
[2020-04-18] MEDS ORDERED: MORPHINE SULFATE 10 MG/ML INJ IV ONE (20:30)
[2020-04-18] MEDS: MORPHINE SULFATE 10 MG/ML INJ IV PRN (22:15)
--- NOTE | 2020-04-19 07:21 | PDOC CRITICAL CARE PROG REPORT ---
General Date:: 04/19/20 Hospital Day:: 5 Resuscitation Status: Do Not Resuscitate Events in the past 12 to 24 Hours:: Continues downward trend. mostly likely soon. Review of systems relevant to events:: GI, neurological, renal, CV. Reason for ICU Addmission:: Pneumoperitoneum. Perforated viscus. Conservative tr eatment without surgery. - Medications: Medications reviewed and adjusted accordingly: Yes Vasopressors:: None Sedation:: None Physical Exam Vital Signs: Temp Pulse Resp BP Pulse Ox 98.8 F 123 H 25 H 148/68 H 96 04/18/20 19:51 04/18/20 20:00 04/18/20 20:00 04/18/20 19:54 04/19/20 05:12 Intake & Output 04/18/20 04/19/20 04/20/20 06:59 06:59 06:59 Intake Total 2698 1425 Output Total 4070 2960 Balance -1372 -1535 Weight 64 kg 64.8 kg Weight/Height Weight 64.8 kg Height 5 ft 5 in General appearance: PRESENT: no acute distress, thin Head exam: PRESENT: atraumatic, normocephalic Eye exam: PRESENT: conjunctiva pink, EOMI, PERRLA. ABSENT: scleral icterus Ear exam: PRESENT: normal external ear exam Mouth exam: PRESENT: moist, tongue midline Respiratory exam: PRESENT: clear to auscultation sharmin, decreased breath sounds. ABSENT: rales, rhonchi, wheezes Cardiovascular exam: PRESENT: tachycardia GI/Abdominal exam: PRESENT: guarding, normal bowel sounds, soft, tenderness. ABSENT: distended, mass, organolmegaly, rebound Rectal exam: PRESENT: deferred Gentrourinary exam: PRESENT: indwelling catheter Extremities exam: PRESENT: +1 edema Musculoskeletal exam: PRESENT: normal inspection Neurological exam: PRESENT: altered, awake, other - Arousable but more disoriented. Skin exam: PRESENT: dry, intact, warm. ABSENT: cyanosis, rash Tubes/Lines: PRESENT: Other - RUQ drain. Laboratory/Radiographs Laboratory Results: 04/18/20 03:50 04/18/20 03:50 04/14/20 02:27 Blood Blood Culture - Final NO GROWTH IN 5 DAYS 04/14/20 00:03 Blood Blood Culture - Final NO GROWTH IN 5 DAYS Impressions: Chest CT 04/14/20 00:03 IMPRESSION: 1. Significant pneumoperitoneum as well as fluid, mostly in the right upper quadrant. The most likely etiology is perforation of the distal stomach or proximal duodenum. 2. Cholelithiasis 3. Emphysema with chronic interstitial fibrosis. 4. Previous sternotomy. 5. Left renal atrophy. 6. No acute fractures. Abdomen/Pelvis CT 04/14/20 00:04 IMPRESSION: 1. Significant pneumoperitoneum as well as fluid, mostly in the right upper quadrant. The most likely etiology is perforation of the distal stomach or proximal duodenum. 2. Cholelithiasis 3. Emphysema with chronic interstitial fibrosis. 4. Previous sternotomy. 5. Left renal atrophy. 6. No acute fractures. Chest X-Ray 04/18/20 00:00 IMPRESSION: Worsening bilateral pneumonia. Strongly suspect pneumoperitoneum. All labs, radiographs, diagnostic studies and EKGs were personally reviewed: Yes In addition, reports of radiographic and diagnostic studies were read: Yes Assessment and Plan - Diagnosis (1) Intra-abdominal free air of unknown etiology Is this a current diagnosis for this admission?: Yes Plan: This is progressing with pneumomediastinum. This is most likely not survivivable. COntinue with comfort care. (2) Acute on chronic renal failure Qualifiers: Acute renal failure type: with acute tubular necrosis Chronic kidney disease stage: stage 4 (severe) Qualified Code(s): N17.0 - Acute kidney failure with tubular necrosis; N18.4 - Chronic kidney disease, stage 4 (severe) Is this a current diagnosis for this admission?: Yes Plan: Coming back to baseline (3) Septic shock Is this a current diagnosis for this admission?: Yes Plan: He is off pressors and with DNR/comfort care status we will not restart if needed. (4) BPH (benign prostatic hyperplasia) Qualifiers: Lower urinary tract symptom presence: symptoms absent Qualified Code(s): N40.0 - Benign prostatic hyperplasia without lower urinary tract symptoms Is this a current diagnosis for this admission?: Yes Plan: Coude for now (5) Coronary artery disease Qualifiers: Coronary Disease-Associated Artery/Lesion type: bypass graft [place] vs. transplanted heart: [place] heart Associated angina: without angina Qualified Code(s): I25.810 - Atherosclerosis of coronary artery bypass graft(s) without angina pectoris Is this a current diagnosis for this admission?: Yes Plan: Inactive (6) Back pain Qualifiers: Chronicity: unspecified Back pain laterality: midline Sciatica presence: without sciatica Is this a current diagnosis for this admission?: Yes Plan: Also inactive. Plan Summary: Hope to get to a medical bed so family can have more freedom to visit. Critical Time Critical Time (minutes): 25 Level of Care: MEDICAL Anticipated discharge: Hospice Anticipated DC Timeframe: within 48 hours -: 1. The care of a critical patient is a dynamic process. This note is a [employer] sales representative synopsis but static in nature. The timeframe for treatments given in order is not necessarily the actual time these treatments may have been done. 2. This patient requires critical care secondary to ongoing requirements for therapy not offered or safe outside the critical care environment. Transfer to a lower level of care will result in altered life or limb morbidity and mortality. 3. Multidisciplinary rounds completed. 4. ABCDE bundle addressed.
[2020-04-19] MEDS: LIDOCAINE 5% (700 MG) TRANSDERMAL ADH..PATCH TP SCH (10:26)
[2020-04-19] MEDS: MORPHINE SULFATE 10 MG/ML INJ IV PRN (10:31)
[2020-04-20] MEDS: LIDOCAINE 5% (700 MG) TRANSDERMAL ADH..PATCH TP SCH (10:00)
--- NOTE | 2020-04-20 19:05 | PDOC PROGRESS REPORT ---
Subjective Progress Note for:: 04/20/20 Subjective:: Comfort care encounter Reason For Visit: PNEUMOPERITONEUM Physical Exam Vital Signs: Temp Pulse Resp BP Pulse Ox 97.5 F 123 H 20 127/70 H 97 04/20/20 15:19 04/20/20 15:19 04/20/20 15:19 04/20/20 15:19 04/20/20 15:19 Intake & Output 04/19/20 04/20/20 04/21/20 06:59 06:59 06:59 Intake Total 1425 0 100 Output Total 2960 710 795 Balance -1535 -710 -695 Weight 64.8 kg 63.1 kg General appearance: PRESENT: no acute distress, thin Head exam: PRESENT: atraumatic, normocephalic Eye exam: PRESENT: conjunctiva pink, EOMI, PERRLA. ABSENT: scleral icterus Ear exam: PRESENT: normal external ear exam Mouth exam: PRESENT: tongue midline Neck exam: ABSENT: carotid bruit, JVD, lymphadenopathy, thyromegaly Respiratory exam: PRESENT: clear to auscultation sharmin. ABSENT: rales, rhonchi, wheezes Cardiovascular exam: PRESENT: RRR, +S1, +S2. ABSENT: diastolic murmur, rubs, systolic murmur GI/Abdominal exam: PRESENT: diminished bowel sounds, normal bowel sounds, tenderness. ABSENT: distended, guarding, mass, organolmegaly, rebound Rectal exam: PRESENT: deferred Extremities exam: PRESENT: full ROM. ABSENT: calf tenderness, clubbing, pedal edema Neurological exam: PRESENT: alert, awake. ABSENT: motor sensory deficit Psychiatric exam: PRESENT: appropriate affect, normal mood. ABSENT: homicidal ideation, suicidal ideation Skin exam: PRESENT: warm. ABSENT: cyanosis, rash Results Laboratory Results: 04/18/20 03:50 04/18/20 03:50 Impressions: Chest CT 04/14/20 00:03 IMPRESSION: 1. Significant pneumoperitoneum as well as fluid, mostly in the right upper quadrant. The most likely etiology is perforation of the distal stomach or proximal duodenum. 2. Cholelithiasis 3. Emphysema with chronic interstitial fibrosis. 4. Previous sternotomy. 5. Left renal atrophy. 6. No acute fractures. Abdomen/Pelvis CT 04/14/20 00:04 IMPRESSION: 1. Significant pneumoperitoneum as well as fluid, mostly in the right upper quadrant. The most likely etiology is perforation of the distal stomach or proximal duodenum. 2. Cholelithiasis 3. Emphysema with chronic interstitial fibrosis. 4. Previous sternotomy. 5. Left renal atrophy. 6. No acute fractures. Chest X-Ray 04/18/20 00:00 IMPRESSION: Worsening bilateral pneumonia. Strongly suspect pneumoperitoneum. Assessment and Plan - Diagnosis (1) Acute on chronic renal failure Qualifiers: Acute renal failure type: with acute tubular necrosis Chronic kidney disease stage: stage 4 (severe) Qualified Code(s): N17.0 - Acute kidney failure with tubular necrosis; N18.4 - Chronic kidney disease, stage 4 (severe) Is this a current diagnosis for this admission?: Yes Plan: Coming back to baseline (2) Back pain Qualifiers: Chronicity: unspecified Back pain laterality: midline Sciatica presence: without sciatica Is this a current diagnosis for this admission?: Yes Plan: Also inactive. (3) Colostomy care Is this a current diagnosis for this admission?: Yes (4) Perforated viscus Is this a current diagnosis for this admission?: Yes (5) Sepsis Qualifiers: Sepsis type: sepsis due to unspecified organism Sepsis acute organ dysfunction status: unspecified Qualified Code(s): A41.9 - Sepsis, unspecified organism Is this a current diagnosis for this admission?: Yes (6) Septic shock Is this a current diagnosis for this admission?: Yes Plan: He is off pressors and with DNR/comfort care status we will not restart if needed. (7) Protein-calorie malnutrition, severe Is this a current diagnosis for this admission?: Yes - Plan Summary Summary: Patient is currently under comfort care. Will have to discuss with the family what the options are regarding either taking him home with hospice or inpatient hospice care - Time Time Spent with patient: Less than 15 minutes Anticipated Discharge Disposition: Home with Hospice Anticipated Discharge Timeframe: within 48 hours
[2020-04-20] MEDS: MORPHINE SULFATE 10 MG/ML INJ IV PRN (19:35)
[2020-04-21] MEDS: MORPHINE SULFATE 10 MG/ML INJ IV PRN ×3 (02:25→21:34)
[2020-04-21] MEDS: LIDOCAINE 5% (700 MG) TRANSDERMAL ADH..PATCH TP SCH (10:17)
--- NOTE | 2020-04-21 14:41 | PDOC PROGRESS REPORT ---
Subjective Progress Note for:: 04/21/20 Reason For Visit: PNEUMOPERITONEUM Physical Exam Vital Signs: Temp Pulse Resp BP Pulse Ox 97.8 F 124 H 26 H 96/73 L 96 04/21/20 10:00 04/21/20 07:51 04/21/20 07:51 04/21/20 07:51 04/21/20 07:51 Intake & Output 04/20/20 04/21/20 04/22/20 06:59 06:59 06:59 Intake Total 0 581 222 Output Total 710 1320 Balance -710 -739 222 Weight 63.1 kg 63.2 kg General appearance: PRESENT: no acute distress, thin - cachectic Head exam: PRESENT: atraumatic, normocephalic Eye exam: PRESENT: EOMI, PERRLA. ABSENT: scleral icterus Mouth exam: PRESENT: moist Neck exam: ABSENT: carotid bruit, JVD, lymphadenopathy, thyromegaly Respiratory exam: PRESENT: clear to auscultation sharmin. ABSENT: rales, rhonchi, wheezes Cardiovascular exam: PRESENT: RRR, +S1, +S2. ABSENT: diastolic murmur, rubs, systolic murmur Pulses: PRESENT: normal dorsalis pedis pul Vascular exam: PRESENT: normal capillary refill GI/Abdominal exam: PRESENT: diminished bowel sounds, tenderness. ABSENT: distended, guarding, mass, organolmegaly, rebound Rectal exam: PRESENT: deferred Extremities exam: PRESENT: full ROM. ABSENT: calf tenderness, clubbing, pedal edema Neurological exam: PRESENT: alert, awake, oriented to person, oriented to place, oriented to time, oriented to situation, CN II-XII grossly intact. ABSENT: motor sensory deficit Psychiatric exam: PRESENT: appropriate affect, normal mood. ABSENT: homicidal ideation, suicidal ideation Skin exam: ABSENT: cyanosis, rash Results Laboratory Results: 04/18/20 03:50 04/18/20 03:50 Impressions: Chest CT 04/14/20 00:03 IMPRESSION: 1. Significant pneumoperitoneum as well as fluid, mostly in the right upper quadrant. The most likely etiology is perforation of the distal stomach or proximal duodenum. 2. Cholelithiasis 3. Emphysema with chronic interstitial fibrosis. 4. Previous sternotomy. 5. Left renal atrophy. 6. No acute fractures. Abdomen/Pelvis CT 04/14/20 00:04 IMPRESSION: 1. Significant pneumoperitoneum as well as fluid, mostly in the right upper quadrant. The most likely etiology is perforation of the distal stomach or proximal duodenum. 2. Cholelithiasis 3. Emphysema with chronic interstitial fibrosis. 4. Previous sternotomy. 5. Left renal atrophy. 6. No acute fractures. Chest X-Ray 04/18/20 00:00 IMPRESSION: Worsening bilateral pneumonia. Strongly suspect pneumoperitoneum. Assessment and Plan - Diagnosis (1) Acute on chronic renal failure Qualifiers: Acute renal failure type: with acute tubular necrosis Chronic kidney disease stage: stage 4 (severe) Qualified Code(s): N17.0 - Acute kidney failure with tubular necrosis; N18.4 - Chronic kidney disease, stage 4 (severe) Is this a current diagnosis for this admission?: Yes (2) Back pain Qualifiers: Chronicity: unspecified Back pain laterality: midline Sciatica presence: without sciatica Is this a current diagnosis for this admission?: Yes (3) Perforated viscus Is this a current diagnosis for this admission?: Yes (4) Sepsis Qualifiers: Sepsis type: sepsis due to unspecified organism Sepsis acute organ dysfunction status: unspecified Qualified Code(s): A41.9 - Sepsis, unspecified organism Is this a current diagnosis for this admission?: Yes (5) Septic shock Is this a current diagnosis for this admission?: Yes - Plan Summary Summary: Patient is currently under comfort care. Will have to discuss with the family what the options are regarding either taking him home with hospice or inpatient hospice care - Time Time Spent with patient: Less than 15 minutes Anticipated Discharge Disposition: Hospice Center Anticipated Discharge Timeframe: within 48 hours
[2020-04-22] MEDS: MORPHINE SULFATE 10 MG/ML INJ IV PRN ×3 (00:44→08:06)
[2020-04-22 09:55] VITALS: BP 51/32
--- NOTE | 2020-04-22 10:16 | Death Summary ---
Summary Date : 04/22/20 Time of :: 08:52 Autopsy: No Resuscitation Status: Comfort Measures Only Primary Care Provider: Felix Hdz - Final Diagnosis (1) Acute on chronic renal failure Is this a current diagnosis for this admission?: Yes (2) Back pain Is this a current diagnosis for this admission?: Yes (3) Colostomy care Is this a current diagnosis for this admission?: Yes (4) Perforated viscus Is this a current diagnosis for this admission?: Yes (5) Sepsis Is this a current diagnosis for this admission?: Yes (6) Septic shock Is this a current diagnosis for this admission?: Yes (7) Protein-calorie malnutrition, severe Is this a current diagnosis for this admission?: Yes Hospital Course:: Patient was admitted with abdominal pain and was initially admitted to the intensive care unit. He was found to have a pneumo peritoneum likely from perforation of the distal stomach or proximal duodenum. Patient also subsequently developed a pneumothorax. He was seen by the surgical team discussions with the family no surgical intervention was planned due to the comorbidities and patient's age. Was initially on vasopressors in the intensive care unit for septic shock. He was subsequently made comfort care once this was done patient was moved out of the unit for continuation of comfort care. He ultimately on April 22 at 8:52 AM.
[2020-04-22] MEDS ORDERED: PHARMACY COMMUNICATION ORDER MC SCH (22:00)
== END 2020-04-22 11:42 | DRG 871 ==
LOC: ER 23:17 → EH 04-14 03:09 → ICU 04-14 03:45 → 3S 04-19 13:19
PROVIDERS: ADMIT Internal Medicine; ATTEND Internal Medicine
PROC: 0W9G30Z Drainage of Peritoneal Cavity with Drainage Device, Percutaneous Approach (ICD-10-PCS; 2020-04-14)
PROC: 06HM33Z Insertion of Infusion Device into Right Femoral Vein, Percutaneous Approach (ICD-10-PCS; 2020-04-14)
PROC: B54BZZA Ultrasonography of Right Lower Extremity Veins, Guidance (ICD-10-PCS; 2020-04-14)
PROC: 3E0436Z Introduction of Nutritional Substance into Central Vein, Percutaneous Approach (ICD-10-PCS; 2020-04-15)
PROC: 30233N1 Transfusion of Nonautologous Red Blood Cells into Peripheral Vein, Percutaneous Approach (ICD-10-PCS; principal; 2020-04-17)
DX: A41.9 Sepsis, unspecified organism (principal); R65.21 Severe sepsis with septic shock; E43 Unspecified severe protein-calorie malnutrition; K63.1 Perforation of intestine (nontraumatic); N17.0 Acute kidney failure with tubular necrosis; C19 Malignant neoplasm of rectosigmoid junction; E27.40 Unspecified adrenocortical insufficiency; N18.4 Chronic kidney disease, stage 4 (severe); I25.810 Atherosclerosis of coronary artery bypass graft(s) without angina pectoris; Z68.1 Body mass index [BMI] 19.9 or less, adult; K66.8 Other specified disorders of peritoneum; E78.5 Hyperlipidemia, unspecified; I12.9 Hypertensive chronic kidney disease with stage 1 through stage 4 chronic kidney disease, or unspecified chronic kidney disease; E11.22 Type 2 diabetes mellitus with diabetic chronic kidney disease; M10.9 Gout, unspecified; N40.0 Benign prostatic hyperplasia without lower urinary tract symptoms; Z66 Do not resuscitate; Z51.5 Encounter for palliative care; M54.9 Dorsalgia, unspecified; E78.00 Pure hypercholesterolemia, unspecified; I25.2 Old myocardial infarction; Z93.3 Colostomy status; Z95.1 Presence of aortocoronary bypass graft; Z79.899 Other long term (current) drug therapy; Z79.82 Long term (current) use of aspirin; Z79.891 Long term (current) use of opiate analgesic; Z85.038 Personal history of other malignant neoplasm of large intestine; Z90.49 Acquired absence of other specified parts of digestive tract
CPT/HCPCS: 36415; 36430; 71045; 71250; 74176; 80048; 80053; 81001; 82330; 82533; 82962; 83605; 83690; 83735; 84100; 84134; 84478; 85025; 85027; 85610; 85730; 86850; 86900; 86901; 86920; 87040; 87070; 87075; 87077; 87086; 87186; 87205; 93005; 93010; 96361; 96365; 96375; 99285; 99291; 99292; J0610; C9113; J1170; J1450; J1630; J1642; J1644; J1815; J1885; J1940; J2270; J2370; J2405; J2543; J3490; J7030; J7050; J7060; J7120; P9016; S0028